=== PATIENT | male | born 1985 | race Caucasian/White ===

== ENCOUNTER 2017-02-22 16:18 | Emergency (ER) | payer OTHER ==
[2017-02-22 16:39] VITALS: BP 132/88; PULSE 98; RESP 16; TEMP 98.9
--- NOTE | 2017-02-22 17:10 | ED ---
Alcohol HPI - General Chief Complaint: Alcohol Stated Complaint: Alcohol Time Seen by Provider: 02/22/17 16:45 Source: patient, RN notes reviewed, old records reviewed Mode of arrival: ambulatory Limitations: no limitations - History of Present Illness Initial Comments: Patient is a pleasant 31-year-old male with chief complaint of alcohol use disorder and states that he wants to be admitted. Patient states that he drinks approximately a pint a day for the past 4 years. He states he's had multiple attempts to quit however he can never get through the withdrawal symptoms. Patient states that he tried to quit a few weeks ago and started having shakes nausea and then he started drinking again. Patient states he has had 2 seizures in the past after trying to go through withdrawals. Patient denies any fever or chills, nausea or vomiting. He states he has a history of anxiety which causes him to drink. He states he does not take any medications to help with anxiety.Patient denies any recent fever, chills, shortness of breath, chest pain, back pain, abdominal pain, nausea vomiting, numbness or tingling, dysuria or hematuria, constipation or diarrhea, headaches or visual changes, or any other current symptoms - Related Data Previous Rx's Medication Instructions Recorded LORazepam [Ativan] 1 mg PO TID #15 tab 02/22/17 Ondansetron Odt [Zofran Odt] 4 mg PO Q8HR PRN #20 tab 02/22/17 Allergies Allergy/AdvReac Type Severity Reaction Status Date / Time No Known Allergies Allergy Verified 02/22/17 16:46 Review of Systems ROS Statement: Those systems with pertinent positive or pertinent negative responses have been documented in the HPI. ROS Other: All systems not noted in ROS Statement are negative. Past Medical History Past Medical History: Hypertension History of Any Multi-Drug Resistant Organisms: None Reported Past Surgical History: Orthopedic Surgery Additional Past Surgical History / Comment(s): RIGHT ANKLE Past Psychological History: Anxiety Smoking Status: Former smoker Past Alcohol Use History: Daily, Heavy General Exam - General Exam Comments Initial Comments: [place] 31-year-old male. Patient does not appear to be in any acute distress. Limitations: no limitations General appearance: alert Head exam: Present: atraumatic, normocephalic, normal inspection Eye exam: Present: normal appearance, PERRL, EOMI. Absent: scleral icterus, conjunctival injection, periorbital swelling ENT exam: Present: normal exam, normal oropharynx, mucous membranes moist, TM's normal bilaterally Neck exam: Present: normal inspection. Absent: tenderness, meningismus, lymphadenopathy Respiratory exam: Present: normal lung sounds bilaterally. Absent: respiratory distress, wheezes, rales, rhonchi, stridor Cardiovascular Exam: Present: regular rate, normal rhythm, normal heart sounds. Absent: systolic murmur, diastolic murmur, rubs, gallop, clicks GI/Abdominal exam: Present: soft, normal bowel sounds. Absent: distended, tenderness, guarding, rebound, rigid Extremities exam: Present: normal inspection, full ROM, normal capillary refill. Absent: tenderness, pedal edema, joint swelling, calf tenderness Back exam: Present: normal inspection Neurological exam: Present: alert, oriented X3, CN II-XII intact Psychiatric exam: Present: normal affect, normal mood Skin exam: Present: warm, dry, intact, normal color. Absent: rash Course Vital Signs 02/22/17 16:34 Temperature 98.9 F Pulse Rate 98 Respiratory 16 Rate Blood Pressure 132/88 O2 Sat by Pulse 96 Oximetry Medical Decision Making - Medical Decision Making This is a pleasant 31-year-old male with chief complaint of wanting to go through alcohol detox and Hospital. I do lengthy discussion with him that we do not admit for this. I discussed that I will provide medications for nausea and withdrawal. Discussed that he should follow up with outpatient care including [facility] as well as multiple resources for substance abuse. Patient agrees with treatment plan will comply. Discussed return parameters including seizures. Discussed that he needs to follow-up with his primary care provider regards to chronic anxiety medication. Patient in question using Celexa. Discussed that this is something a primary care provider needs to signs. Patient agrees with treatment plan. Patient's blood alcohol level is 0.227. Patient is going home with his father. Discussed return parameters. Disposition Clinical Impression: Alcohol abuse Disposition: HOME SELF-CARE Condition: Good Instructions: Alcohol Withdrawal (ED) Additional Instructions: Patient advised to follow-up with outpatient treatment such as AA, [facility] , and other psychiatric services. Return to emergency department if any alarming signs or symptoms occur. Patient needs to take a vacation as directed. Again follow-up with primary care provider within the next 2-3 days for management of anxiety. Prescriptions: LORazepam [Ativan] 1 mg PO TID #15 tab Ondansetron Odt [Zofran Odt] 4 mg PO Q8HR PRN #20 tab PRN Reason: Nausea Referrals: None,Stated [Primary Care Provider] - 1-2 days Janet Sandoval MD [STAFF PHYSICIAN] - 1-2 days Time of Disposition: 17:04
== END 2017-02-22 17:21 | disposition home or self-care (01) ==
LOC: EC 16:18
DX: F10.10 Alcohol abuse, uncomplicated (principal); Z87.891 Personal history of nicotine dependence
CPT/HCPCS: 82075; 99284

== ENCOUNTER 2020-05-04 22:29 | Emergency (ER) | payer OTHER ==
[2020-05-04 22:43] VITALS: RESP 18
[2020-05-04] MEDS ORDERED: ONDANSETRON 4 MG/2 ML VIAL IVP STA (22:57)
[2020-05-04] MEDS ORDERED: SODIUM CHLORIDE 0.9% 1,000 ML IV STA (22:57)
[2020-05-04] MEDS ORDERED: MORPHINE SULFATE 2 MG/ML SYRINGE IVP STA (22:57)
[2020-05-04 23:29] LABS: Basophils % (A) 1 %; Eosinophils # (A) 0.2 k/uL (0-0.7); Eosinophils % (A) 4 %; HGB 17.4 gm/dL (13.0-17.5); Lymphocytes # (A) 2.7 k/uL (1.0-4.8); Lymphocytes % (A) 54 %; MCH 33.1 pg (25.0-35.0); MCHC 34.1 g/dL (31.0-37.0); MCV 97.3 fL (80.0-100.0); Mean Platelet Volume 8.3; Monocytes # (A) 0.3 k/uL (0-1.0); Monocytes % (A) 5 %; Neutrophils # (A) 1.7 k/uL (1.3-7.7); Neutrophils % (A) 35 %; Platelet Count 167 k/uL (150-450); RBC 5.24 m/uL (4.30-5.90); RDW 13.1 % (11.5-15.5)
--- NOTE | 2020-05-04 23:33 | XR ---
EXAMINATION TYPE: XR KUB DATE OF EXAM: 05/04/2020 COMPARISON: NONE HISTORY: Abdominal pain TECHNIQUE: 2 views FINDINGS: 2 views upright show no sign of intestinal obstruction or pneumoperitoneum. Fecal pattern i s normal. Lung bases are clear. There are no pathologic calcifications over the kidneys. Bony structu res are intact. IMPRESSION: Nonacute abdomen.
[2020-05-04 23:40] LABS: INR 1.1 (<1.2); Partial Thromboplastin Time 25.3 sec (22.0-30.0); Prothrombin Time 11.4 sec (9.0-12.0)
[2020-05-04 23:44] LABS: ALT 66 U/L (4-49); AST 137 U/L (17-59); African American GFR (CKD) >90 (>60 ml/min/1.73 sqM); Albumin 4.7 g/dL (3.5-5.0); Alkaline Phosphatase 108 U/L (38-126); Amylase 37 U/L (30-110); Anion Gap 16 mmol/L; Blood Urea Nitrogen 7 mg/dL (9-20); Calcium 9.4 mg/dL (8.4-10.2); Carbon Dioxide 26 mmol/L (22-30); Chloride 97 mmol/L (98-107); Glucose 96 mg/dL (74-99); Non-African American GFR(CKD) >90 (>60 ml/min/1.73 sqM); Potassium 3.5 mmol/L (3.5-5.1); Sodium 139 mmol/L (137-145); Total Bilirubin 0.7 mg/dL (0.2-1.3); Total Protein 7.5 g/dL (6.3-8.2)
[2020-05-04 23:51] LABS: Alcohol 271 mg/dL
--- NOTE | 2020-05-05 00:31 | ED ---
Abdominal Pain HPI - General Chief Complaint: Abdominal Pain Stated Complaint: Abd Pain Time Seen by Provider: 05/04/20 22:51 Source: patient Mode of arrival: ambulatory Limitations: no limitations - History of Present Illness Initial Comments: 34-year-old male patient has medical history significant for chronic alcohol abuse presents to the emergency department today for evaluation of generalized abdominal pain and cramping. Patient states that pain started yesterday, seemed to worsen today so presented here for further evaluation. Patient states that he generally is evaluated at [facility] and [facility] and states he has been diagnosed with colitis in the past. He is supposed to follow up with GI specialist but has not yet been able to do so. Denies history of EGD or colonoscopy. Denies taking any medications currently. Does admit to drinking alcohol today. Denies any nausea or vomiting. Denies constipation or diarrhea. Denies any hematochezia or melena. Patient denies any recent rash, fever, chills, cough, shortness of breath, chest pain, back pain, numbness, tingling, dizziness, weakness, hematuria, dysuria, urinary urgency, urinary frequency, headache, visual changes, or any other complaints. - Related Data Previous Rx's Medication Instructions Recorded LORazepam [Ativan] 1 mg PO TID #15 tab 02/22/17 Ondansetron Odt [Zofran Odt] 4 mg PO Q8HR PRN #20 tab 02/22/17 Dicyclomine [Bentyl] 20 mg PO QID #12 tablet 05/05/20 Famotidine [Pepcid] 20 mg PO HS #30 tablet 05/05/20 Allergies Allergy/AdvReac Type Severity Reaction Status Date / Time No Known Allergies Allergy Verified 02/22/17 16:46 Review of Systems ROS Statement: Those systems with pertinent positive or pertinent negative responses have been documented in the HPI. ROS Other: All systems not noted in ROS Statement are negative. Past Medical History Past Medical History: Hypertension Additional Past Medical History / Comment(s): collitis History of Any Multi-Drug Resistant Organisms: None Reported Past Surgical History: Orthopedic Surgery Additional Past Surgical History / Comment(s): RIGHT ANKLE Past Psychological History: Anxiety Past Alcohol Use History: Daily, Heavy General Exam Limitations: no limitations General appearance: alert, in no apparent distress, other (This is a well- developed, well-nourished adult male patient in no acute distress. Vital signs upon presentation are temperature 97.8F, pulse 110, respirations 18, blood pressure 135/101, pulse ox 98% on room air.) Eye exam: Present: normal appearance, PERRL, EOMI. Absent: scleral icterus, conjunctival injection, periorbital swelling ENT exam: Present: normal exam, normal oropharynx, mucous membranes moist Respiratory exam: Present: normal lung sounds bilaterally. Absent: respiratory distress, wheezes, rales, rhonchi, stridor Cardiovascular Exam: Present: regular rate, normal rhythm, normal heart sounds. Absent: systolic murmur, diastolic murmur, rubs, gallop, clicks GI/Abdominal exam: Present: soft, tenderness (Generalized), normal bowel sounds. Absent: distended, guarding, rebound, rigid Neurological exam: Present: alert, oriented X3, CN II-XII intact Psychiatric exam: Present: normal affect, normal mood Skin exam: Present: warm, dry, intact, normal color. Absent: rash Course Vital Signs 05/04/20 22:38 Temperature 97.8 F Pulse Rate 110 H Respiratory 18 Rate Blood Pressure 135/101 O2 Sat by Pulse 98 Oximetry Medical Decision Making - Medical Decision Making 34-year-old male patient presents to the emergency department today for evaluation of generalized abdominal pain. Patient does admit to drinking alcohol daily. Physical examination did reveal generalized abdominal tenderness. Labs reviewed and did reveal mildly elevated liver enzymes. Normal white blood cell count. KUB was negative. Patient alcohol level is 274. He was given medications here in the emergency department. Does report mild improvement. He'll be discharged from this primary care physician and did check bolt cutter for further evaluation as soon as possible. Return parameters discussed in detail. He verbalizes understanding and agrees with this plan. - Lab Data Result diagrams: 05/04/20 22:57 05/04/20 22:57 Lab Results 05/04/20 05/04/20 05/04/20 Range/Units 22:57 22:57 22:57 WBC 5.0 (3.8-10.6) k/uL RBC 5.24 (4.30-5.90) m/uL Hgb 17.4 (13.0-17.5) gm/dL Hct 51.0 (39.0-53.0) % MCV 97.3 (80.0-100.0) fL MCH 33.1 (25.0-35.0) pg MCHC 34.1 (31.0-37.0) g/dL RDW 13.1 (11.5-15.5) % Plt Count 167 (150-450) k/uL Neutrophils % 35 % Lymphocytes % 54 % Monocytes % 5 % Eosinophils % 4 % Basophils % 1 % Neutrophils # 1.7 (1.3-7.7) k/uL Lymphocytes # 2.7 (1.0-4.8) k/uL Monocytes # 0.3 (0-1.0) k/uL Eosinophils # 0.2 (0-0.7) k/uL Basophils # 0.0 (0-0.2) k/uL PT 11.4 (9.0-12.0) sec INR 1.1 (<1.2) APTT 25.3 (22.0-30.0) sec Sodium 139 (137-145) mmol/L Potassium 3.5 (3.5-5.1) mmol/L Chloride 97 L (98-107) mmol/L Carbon Dioxide 26 (22-30) mmol/L Anion Gap 16 mmol/L BUN 7 L (9-20) mg/dL Creatinine 0.67 (0.66-1.25) mg/dL Est GFR (CKD-EPI)AfAm >90 (>60 ml/min/1.73 sqM) Est GFR (CKD-EPI)NonAf >90 (>60 ml/min/1.73 sqM) Glucose 96 (74-99) mg/dL Lactic Ac Sepsis Rflx Plasma Lactic Acid Larry (0.7-2.0) mmol/L Calcium 9.4 (8.4-10.2) mg/dL Total Bilirubin 0.7 (0.2-1.3) mg/dL AST 137 H (17-59) U/L ALT 66 H (4-49) U/L Alkaline Phosphatase 108 (38-126) U/L Total Protein 7.5 (6.3-8.2) g/dL Albumin 4.7 (3.5-5.0) g/dL Amylase 37 (30-110) U/L Lipase 109 (23-300) U/L Urine Color Urine Appearance (Clear) Urine pH (5.0-8.0) Ur Specific [place] (1.001-1.035) Urine Protein (Negative) Urine Glucose (UA) (Negative) Urine Ketones (Negative) Urine Blood (Negative) Urine Nitrite (Negative) Urine Bilirubin (Negative) Urine Urobilinogen (<2.0) mg/dL Ur Leukocyte Esterase (Negative) Urine RBC (0-5) /hpf Urine WBC (0-5) /hpf Ur Squamous Epith Cells (0-4) /hpf Amorphous Sediment (None) /hpf Urine Bacteria (None) /hpf Hyaline Casts (0-2) /lpf Urine Mucus (None) /hpf Serum Alcohol 271 H* mg/dL 05/04/20 05/04/20 05/05/20 Range/Units 22:57 23:54 00:59 WBC (3.8-10.6) k/uL RBC (4.30-5.90) m/uL Hgb (13.0-17.5) gm/dL Hct (39.0-53.0) % MCV (80.0-100.0) fL MCH (25.0-35.0) pg MCHC (31.0-37.0) g/dL RDW (11.5-15.5) % Plt Count (150-450) k/uL Neutrophils % % Lymphocytes % % Monocytes % % Eosinophils % % Basophils % % Neutrophils # (1.3-7.7) k/uL Lymphocytes # (1.0-4.8) k/uL Monocytes # (0-1.0) k/uL Eosinophils # (0-0.7) k/uL Basophils # (0-0.2) k/uL PT (9.0-12.0) sec INR (<1.2) APTT (22.0-30.0) sec Sodium (137-145) mmol/L Potassium (3.5-5.1) mmol/L Chloride (98-107) mmol/L Carbon Dioxide (22-30) mmol/L Anion Gap mmol/L BUN (9-20) mg/dL Creatinine (0.66-1.25) mg/dL Est GFR (CKD-EPI)AfAm (>60 ml/min/1.73 sqM) Est GFR (CKD-EPI)NonAf (>60 ml/min/1.73 sqM) Glucose (74-99) mg/dL Lactic Ac Sepsis Rflx Y Plasma Lactic Acid Larry 2.8 H* (0.7-2.0) mmol/L Calcium (8.4-10.2) mg/dL Total Bilirubin (0.2-1.3) mg/dL AST (17-59) U/L ALT (4-49) U/L Alkaline Phosphatase (38-126) U/L Total Protein (6.3-8.2) g/dL Albumin (3.5-5.0) g/dL Amylase (30-110) U/L Lipase (23-300) U/L Urine Color Yellow Urine Appearance Cloudy (Clear) Urine pH 8.0 (5.0-8.0) Ur Specific [place] 1.015 (1.001-1.035) Urine Protein Negative (Negative) Urine Glucose (UA) Negative (Negative) Urine Ketones Trace H (Negative) Urine Blood Negative (Negative) Urine Nitrite Negative (Negative) Urine Bilirubin Negative (Negative) Urine Urobilinogen 2.0 (<2.0) mg/dL Ur Leukocyte Esterase Negative (Negative) Urine RBC 1 (0-5) /hpf Urine WBC 2 (0-5) /hpf Ur Squamous Epith Cells <1 (0-4) /hpf Amorphous Sediment Rare H (None) /hpf Urine Bacteria Rare H (None) /hpf Hyaline Casts 1 (0-2) /lpf Urine Mucus Few H (None) /hpf Serum Alcohol mg/dL - Radiology Data Radiology results: report reviewed, image reviewed KUB x-ray was obtained. Report was reviewed in its entirety. Impression by Dr. Rincon shows nonacute abdomen. Disposition Clinical Impression: Alcohol intoxication, Abdominal pain Disposition: HOME SELF-CARE Condition: Good Instructions (If sedation given, give patient instructions): Alcohol Intoxication (ED), Abdominal Pain (ED) Additional Instructions: Increase fluids. Take medications as directed. Follow-up with GI specialist for further evaluation as soon as possible. Return to the emergency department immediately for any new, worsening, or concerning symptoms. Prescriptions: Dicyclomine [Bentyl] 20 mg PO QID #12 tablet Famotidine [Pepcid] 20 mg PO HS #30 tablet Is patient prescribed a controlled substance at d/c from ED?: No Referrals: Luis Mcgee MD [Primary Care Provider] - 1-2 days Time of Disposition: 01:59
[2020-05-05 01:18] LABS: Amorphous Sediment,Urine Rare /hpf; Appearance,Urine Cloudy (Clear); Bacteria,Urine Rare /hpf; Bilirubin,Urine Negative (Negative); Blood,Urine Negative (Negative); Color,Urine Yellow; Glucose,Urine (UA) Negative (Negative); Hyaline Casts,Urine 1 /lpf (0-2); Ketones,Urine Trace (Negative); Leukocyte Esterase,Urine Negative (Negative); Mucus,Urine Few /hpf; Nitrite,Urine Negative (Negative); Protein,Urine Negative (Negative); RBC,Urine 1 /hpf (0-5); Specific Gravity,Urine 1.015 (1.001-1.035); Squamous Epithelial Cell,Urine <1 /hpf (0-4); WBC,Urine 2 /hpf (0-5)
[2020-05-05] MEDS ORDERED: DICYCLOMINE 10 MG/ML 2 ML AMP IM STA (01:57)
[2020-05-05] MEDS ORDERED: FAMOTIDINE 20 MG/2 ML VIAL IV STA (01:57)
[2020-05-05 02:35] VITALS: BP 135/84; PULSE 109; TEMP 98.3
== END 2020-05-05 04:50 | disposition home or self-care (01) ==
LOC: EC 22:29
DX: F10.129 Alcohol abuse with intoxication, unspecified (principal); R10.84 Generalized abdominal pain; R94.5 Abnormal results of liver function studies
CPT/HCPCS: 36415; 80053; 82150; 83605; 83690; 85025; 85610; 85730; 81001; 74018; 99284; 96374; 96375 ×2; 96361 ×2; 96372; G0480; J0500; J2405; J2270; 80320

== ENCOUNTER 2020-05-16 22:19 | Observation (INO) | payer OTHER ==
[2020-05-16] MEDS ORDERED: LORazepam 2 MG/ML INJ IV STA (22:36)
[2020-05-16] MEDS ORDERED: ONDANSETRON 4 MG/2 ML VIAL IVP STA (22:44)
--- NOTE | 2020-05-16 22:44 | ED ---
General Adult HPI - General Chief complaint: Alcohol Stated complaint: detox Time Seen by Provider: 05/16/20 22:27 Source: patient, EMS, RN notes reviewed, old records reviewed (Chart reviewed from [facility]) Mode of arrival: EMS Limitations: no limitations - History of Present Illness Initial comments: Patient is a pleasant 34-year-old male presenting to the emergency department with transfer from [facility] with concern for alcohol withdrawal. Patient has been vomiting for the past 3 days, last alcohol intake was this m orning. Patient was seen at [facility] and recommended transfer secondary to alcohol withdrawal. There is also concerned with dehydration and electrolyte abnormalities. Patient states he is feeling much better at this time. Patient has mild nausea. No abdominal discomfort. Patient does feel shaky. No confusion. - Related Data Previous Rx's Medication Instructions Recorded LORazepam [Ativan] 1 mg PO TID #15 tab 02/22/17 Ondansetron Odt [Zofran Odt] 4 mg PO Q8HR PRN #20 tab 02/22/17 Dicyclomine [Bentyl] 20 mg PO QID #12 tablet 05/05/20 Famotidine [Pepcid] 20 mg PO HS #30 tablet 05/05/20 Allergies Allergy/AdvReac Type Severity Reaction Status Date / Time No Known Allergies Allergy Verified 05/16/20 22:37 Review of Systems ROS Statement: Those systems with pertinent positive or pertinent negative responses have been documented in the HPI. ROS Other: All systems not noted in ROS Statement are negative. Constitutional: Denies: fever Eyes: Denies: eye pain ENT: Denies: ear pain Respiratory: Denies: cough Cardiovascular: Denies: chest pain Endocrine: Denies: fatigue Gastrointestinal: Reports: nausea, vomiting. Denies: abdominal pain (Patient had some discomfort earlier, resolved) Musculoskeletal: Denies: back pain Skin: Denies: rash Neurological: Denies: weakness, confusion Past Medical History Past Medical History: Hypertension Additional Past Medical History / Comment(s): collitis History of Any Multi-Drug Resistant Organisms: None Reported Past Surgical History: Orthopedic Surgery Additional Past Surgical History / Comment(s): RIGHT ANKLE Past Psychological History: Anxiety Past Alcohol Use History: Daily, Heavy General Exam Limitations: no limitations General appearance: alert, in no apparent distress, other (Occasional resting tremor) Head exam: Present: normocephalic Eye exam: Present: normal appearance, PERRL ENT exam: Present: normal oropharynx Neck exam: Present: normal inspection. Absent: tenderness, meningismus Respiratory exam: Present: normal lung sounds bilaterally Cardiovascular Exam: Present: regular rate, normal rhythm GI/Abdominal exam: Present: soft. Absent: tenderness Extremities exam: Present: normal inspection Neurological exam: Present: alert, oriented X3, CN II-XII intact. Absent: motor sensory deficit Psychiatric exam: Present: normal affect, normal mood Skin exam: Present: normal color Course Vital Signs 05/16/20 22:27 Temperature 98.7 F Pulse Rate 104 H Respiratory 20 Rate Blood Pressure 139/87 O2 Sat by Pulse 97 Oximetry Medical Decision Making - Medical Decision Making Patient aware of plan. Case discussed with Dr. Matute, covering for Dr. Marcelino, who admits for Dr. Mcgee who will admit. Lab abnormalities are felt to be due to dehydration. There is no source of infection. Patient does not have fever. Disposition Clinical Impression: Alcohol withdrawal syndrome, Dehydration Disposition: ADMITTED IP TO THIS HOSP Is patient prescribed a controlled substance at d/c from ED?: No Decision Time: 22:44
[2020-05-16] MEDS ORDERED: LORazepam 2 MG/ML INJ IV PRN ×2 (22:45)
[2020-05-16] MEDS ORDERED: NALOXONE 0.4 MG/ML 1 ML VIAL IV PRN (22:45)
[2020-05-16] MEDS ORDERED: ONDANSETRON 4 MG/2 ML VIAL IVP PRN (22:45)
[2020-05-17 00:43] LABS: Amorphous Sediment,Urine Rare /hpf; Appearance,Urine Turbid (Clear); Bilirubin,Urine Negative (Negative); Blood,Urine Negative (Negative); Color,Urine Yellow; Glucose,Urine (UA) Negative (Negative); Ketones,Urine 2+ (Negative); Leukocyte Esterase,Urine Negative (Negative); Nitrite,Urine Negative (Negative); Protein,Urine Negative (Negative); Urobilinogen,Urine <2.0 mg/dL (<2.0)
[2020-05-17] MEDS: SODIUM CHLORIDE 0.9% 1,000 ML IV SCH ×2 (00:45→08:06)
[2020-05-17] MEDS: LORazepam 2 MG/ML INJ IV PRN ×3 (00:45→08:20)
[2020-05-17 00:54] LABS: Specific Gravity,Urine 1.047 (1.001-1.035)
[2020-05-17 05:59] LABS: Basophils % (A) 1 %; Eosinophils % (A) 1 %; HCT 43.1 % (39.0-53.0); HGB 13.9 gm/dL (13.0-17.5); Lymphocytes % (A) 16 %; MCHC 32.2 g/dL (31.0-37.0); MCV 96.3 fL (80.0-100.0); Monocytes # (A) 0.5 k/uL (0-1.0); Monocytes % (A) 8 %; Neutrophils # (A) 4.4 k/uL (1.3-7.7); Neutrophils % (A) 74 %; Platelet Count 184 k/uL (150-450); RBC 4.48 m/uL (4.30-5.90); RDW 13.2 % (11.5-15.5)
[2020-05-17 06:15] LABS: ALT 50 U/L (4-49); AST 81 U/L (17-59); African American GFR (CKD) >90 (>60 ml/min/1.73 sqM); Albumin 3.6 g/dL (3.5-5.0); Alkaline Phosphatase 72 U/L (38-126); Anion Gap 9 mmol/L; Blood Urea Nitrogen 7 mg/dL (9-20); Calcium 8.5 mg/dL (8.4-10.2); Carbon Dioxide 27 mmol/L (22-30); Chloride 98 mmol/L (98-107); Glucose 96 mg/dL (74-99); Magnesium 1.6 mg/dL (1.6-2.3); Non-African American GFR(CKD) >90 (>60 ml/min/1.73 sqM); Potassium 3.6 mmol/L (3.5-5.1); Sodium 134 mmol/L (137-145)
[2020-05-17] MEDS: THIAMINE 100 MG TAB PO SCH ×2 (08:06→16:30)
[2020-05-17] MEDS: MULTIVITAMINS, THERA 1 EACH TAB PO SCH (08:06)
[2020-05-17] MEDS ORDERED: PANTOPRAZOLE 40 MG/10 ML VIAL IV SCH (09:00)
[2020-05-17] MEDS: diazePAM 5 MG TAB PO SCH ×3 (13:42→21:08)
[2020-05-17] MEDS: VENLAFAXINE HCL ER 150 MG CAP PO SCH (13:43)
[2020-05-17] MEDS: DEXTROSE 5%-0.9% NACL 1,000 ML IV SCH ×2 (13:43→21:08)
[2020-05-17] MEDS: PANTOPRAZOLE 40 MG TABLET PO SCH (16:29)
[2020-05-17] MEDS ORDERED: NON FORMULARY DRUG (Brivaracetam [Briviact] 50 MG) PO SCH (21:00)
--- NOTE | 2020-05-17 22:57 | P.HPIM ---
History of Present Illness H&P Date: 05/17/20 Chief Complaint: Vomiting History of presenting complaint: This is a 34-year-old patient, follows with Dr. Luis Mcgee. Patient has a history of alcoholism. In September 2019 patient has undergone rehab. Patient relapsed about 3 weeks ago. Started drinking whiskey again. A lot of pint a day. For 3-4 days patient has been vomiting quite a bit. Some abdominal discom fort. No fever or chills. Last bowel movement was 3-4 days ago. Patient states in the past he's had a vivi stroke, seizures, depression. Last 3 foot is not taking any medications. Last seizure medication was 7 days ago. Patient's last drink was yesterday. Still having nausea. Patient is pending a GI appointment for a possible Crohn's disease. Feeling weak and tired and rundown Review of systems: GEN.: Tired EYES: None HEENT: None NECK: None RESPIRATORY: None CARDIOVASCULAR: None GASTROINTESTINAL: As above GENITOURINARY: None MUSCULOSKELETAL: None LYMPHATICS: None HEMATOLOGICAL: None PSYCHIATRY: Anxious NEUROLOGICAL: None Past medical history to include: Questionable hypertension, anxiety, alcohol use disorder Social history: Did smoke in the past. Drinking a pint a day. Currently not employed. Lives with his father Family history: Reviewed, noncontributory to presentation Physical examination: VITAL SIGNS: 98.5, 90, 16, 147/100, 97% on room air GENERAL: BMI 28.2, laying in bed, tired, spider nevi: Pupils equal. Conjunctiva normal. HEENT: External appearance of nose and ears normal, oral cavity dry mucous membranes. NECK: [JVD not raised; masses not palpable]. HEART: [First and second heart sounds are normal; no edema]. LUNGS:[ Respiratory rate normal; clear to auscultation]. ABDOMEN: [Soft, mild tenderness, no guarding rigidity, liver spleen not palpab le, no masses palpable]. PSYCH: [Alert and oriented x3; mood and affect anxious l. NEUROLOGICAL: [Cranial nerves grossly intact; no facial asymmetry, power and sensation grossly h nodes palpable in the axilla and neck] INVESTIGATIONS, reviewed in the clinical context: White count 6 hemoglobin 13.9 potassium 3.6 bun 7 creatinine 0.55 AST 81 PLT 50 UA positive for ketones 2+ COVID 19 PCF-not detected Assessment: -Persistent nausea vomiting in a patient has been drinking excessive alcohol likely from severe gastritis and esophagitis -Clinical dehydration -Alcohol use disorder -Highly alcohol withdrawal syndrome -Starvation ketosis -Alcoholic hepatitis Plan: Patient started IV fluids including D5. Also given thiamine. On the CIWA scale. Also prophylactically started on Valium 2.5 mg every 8 hours. Lovenox for DVT prophylaxis. Care is discussed with the patient. Antiemetics. Also PPI. Also resume patient's seizure medications. Past Medical History Past Medical History: Hypertension Additional Past Medical History / Comment(s): collitis History of Any Multi-Drug Resistant Organisms: None Reported Past Surgical History: Orthopedic Surgery Additional Past Surgical History / Comment(s): RIGHT ANKLE Past Anesthesia/Blood Transfusion Reactions: No Reported Reaction Past Psychological History: Anxiety Smoking Status: Former smoker Past Alcohol Use History: Daily, Heavy Additional Past Alcohol Use History / Comment(s): drinks a pint/day Past Drug Use History: None Reported - Past Family History Father History Unknown: Yes Medications and Allergies Home Medications Medication Instructions Recorded Confirmed Type Antacid Devora Anti-Gas 10 ml PO Q6H PRN 05/17/20 05/17/20 History Brivaracetam [Briviact] 50 mg PO HS 05/17/20 05/17/20 History Folic Acid 1 mg PO DAILY 05/17/20 05/17/20 History Multivitamins, Thera [Multivitamin 1 tab PO DAILY 05/17/20 05/17/20 History (formulary)] Pantoprazole Sodium [Protonix] 40 mg PO Q12H 05/17/20 05/17/20 History Potassium Chloride ER [K-Dur 10] 10 meq PO AC-TID 05/17/20 05/17/20 History Venlafaxine HCl [Effexor XR] 150 mg PO DAILY 05/17/20 05/17/20 History hydrOXYzine HCL [Atarax] 25 mg PO TID PRN 05/17/20 05/17/20 History Allergies Allergy/AdvReac Type Severity Reaction Status Date / Time No Known Allergies Allergy Verified 05/17/20 07:45 Physical Exam Vitals: Vital Signs Temp Pulse Resp BP Pulse Ox 05/17/20 05:56 98.5 F 90 16 147/100 97 05/17/20 04:50 89 18 143/97 96 05/17/20 04:22 111 H 18 152/111 97 05/17/20 02:05 98.8 F 98 16 146/91 96 05/17/20 00:20 108 H 18 144/98 96 05/16/20 22:27 98.7 F 104 H 20 139/87 97 Intake and Output 05/16/20 05/17/20 05/17/20 22:59 06:59 14:59 Output Total 200 Balance -200 Output: Urine 200 Other: Weight 81.647 kg 81.647 kg Results CBC & Chem 7: 05/17/20 05:26 05/17/20 05:26 Labs: Abnormal Lab Results - Last 24 Hours (Table) 05/17/20 05/17/20 Range/Units 00:21 05:26 Sodium 134 L (137-145) mmol/L BUN 7 L (9-20) mg/dL Creatinine 0.55 L (0.66-1.25) mg/dL AST 81 H (17-59) U/L ALT 50 H (4-49) U/L Total Protein 6.0 L (6.3-8.2) g/dL Ur Specific [place] 1.047 H (1.001-1.035) Urine Ketones 2+ H (Negative) Amorphous Sediment Rare H (None) /hpf Thrombosis Risk Factor Assmnt - Choose All That Apply Any of the Below Risk Factors Present?: No Other Risk Factors: No Other congenital or acquired thrombophilia - If yes, enter type in comment: No Thrombosis Risk Factor Assessment Level: Very Low Risk
[2020-05-18] MEDS: DEXTROSE 5%-0.9% NACL 1,000 ML IV SCH ×2 (02:02→08:27)
[2020-05-18] MEDS: LORazepam 2 MG/ML INJ IV PRN (05:04)
[2020-05-18] MEDS: MULTIVITAMINS, THERA 1 EACH TAB PO SCH (08:27)
[2020-05-18] MEDS: diazePAM 5 MG TAB PO SCH (08:27)
[2020-05-18] MEDS: PANTOPRAZOLE 40 MG TABLET PO SCH (08:27)
[2020-05-18] MEDS: VENLAFAXINE HCL ER 150 MG CAP PO SCH (08:27)
[2020-05-18] MEDS: THIAMINE 100 MG TAB PO SCH (08:27)
[2020-05-18 08:48] VITALS: BP 130/83; PULSE 69; RESP 18; TEMP 98.2
--- NOTE | 2020-05-19 00:39 | P.DS ---
Providers Date of admission: 05/16/20 22:45 Expected date of discharge: 05/18/20 Attending physician: Jarret Marcelino Primary care physician: Luis Mcgee MD Hospital Course: Chief Complaint: Vomiting History of presenting complaint: This is a 34-year-old patient, follows with Dr. Luis Mcgee. Patient has a history of alcoholism. In September 2019 patient has undergone rehab. Patient relapsed about 3 weeks ago. Started drinking whiskey again. A lot of pint a day. For 3-4 days patient has been vomiting quite a bit. Some abdominal discomfort. No fever or chills. Last bowel movement was 3-4 days ago. Patient states in the past he's had a vivi stroke, seizures, depression. Last 3 foot is not taking any medications. Last seizure medication was 7 days ago. Patient's last drink was yesterday. Still having nausea. Patient is pending a GI appointment for a possible Crohn's disease. Feeling weak and tired and rundown admitted with alcoholic gastritis esophagitis, probably alcohol withdrawal syndrome, starvation ketosis. Treated with IV fluids, antiemetics, ppi Today-patient did tolerate. Clear liquids in the morning. I wonder the patient Douglas diet patient very adamantly insisted on going home. Explained at length to him. Consult. Told him to take full liquids and advance as tolerated. Counseled about alcohol. Discussion discharge planning within 35 minutes Physical examination: VITAL SIGNS: 98.2, 69, 18, 130/83, 96% room air GENERAL: sitting of the bed, looking much better HEENT: External appearance of nose and ears normal, oral cavity dry mucous membranes. NECK: [JVD not raised; masses not palpable]. HEART: [First and second heart sounds are normal; no edema]. LUNGS:[ Respiratory rate normal; clear to auscultation]. ABDOMEN: [Soft, mild tenderness, no guarding rigidity, liver spleen not palpable, no masses palpable]. PSYCH: [Alert and oriented x3; mood and affect anxious l. INVESTIGATIONS, reviewed in the clinical context: White count 6 hemoglobin 13.9 potassium 3.6 bun 7 creatinine 0.55 AST 81 PLT 50 UA positive for ketones 2+ COVID 19 PCF-not detected Assessment: -Persistent nausea vomiting in a patient has been drinking excessive alcohol likely from severe gastritis and esophagitis -Clinical dehydration -Alcohol use disorder -Highly alcohol withdrawal syndrome -Starvation ketosis -Alcoholic hepatitis disposition: Home Patient Condition at Discharge: Stable Plan - Discharge Summary New Discharge Prescriptions: Continue Multivitamins, Thera [Multivitamin (formulary)] 1 tab PO DAILY Potassium Chloride ER [K-Dur 10] 10 meq PO AC-TID Pantoprazole Sodium [Protonix] 40 mg PO Q12H Folic Acid 1 mg PO DAILY Brivaracetam [Briviact] 50 mg PO HS Venlafaxine HCl [Effexor XR] 150 mg PO DAILY Antacid Devora Anti-Gas 10 ml PO Q6H PRN PRN Reason: GAS PAIN Discontinued hydrOXYzine HCL [Atarax] 25 mg PO TID PRN PRN Reason: Anxiety Discharge Medication List Antacid Devora Anti-Gas 10 ml PO Q6H PRN 05/17/20 [History] Brivaracetam [Briviact] 50 mg PO HS 05/17/20 [History] Folic Acid 1 mg PO DAILY 05/17/20 [History] Multivitamins, Thera [Multivitamin (formulary)] 1 tab PO DAILY 05/17/20 [History] Pantoprazole Sodium [Protonix] 40 mg PO Q12H 05/17/20 [History] Potassium Chloride ER [K-Dur 10] 10 meq PO AC-TID 05/17/20 [History] Venlafaxine HCl [Effexor XR] 150 mg PO DAILY 05/17/20 [History] Follow up Appointment(s)/Referral(s): Luis Mcgee MD [Primary Care Provider] - 1-2 days (please call office and schedule appointment ) Patient Instructions/Handouts: Abuse of Alcohol (DC), Alcohol Withdrawal (DC) Activity/Diet/Wound Care/Special Instructions: no alcohol full liquid diet- advance as tolerated Discharge Disposition: HOME SELF-CARE
== END 2020-05-18 13:44 | disposition home or self-care (01) ==
LOC: EC 22:19 → INTOOBSV 22:45 → 5NMEDONC 22:45 → 4SSUR 05-17 11:34 → UNDODISIN 05-18 13:44
PROVIDERS: ADMIT Hospitalist; ATTEND Hospitalist
DX: F10.239 Alcohol dependence with withdrawal, unspecified (principal); K20.8 Other esophagitis; K29.20 Alcoholic gastritis without bleeding; E86.0 Dehydration; E88.89 Other specified metabolic disorders; T73.0XXA Starvation, initial encounter; K70.10 Alcoholic hepatitis without ascites; I10 Essential (primary) hypertension; F41.9 Anxiety disorder, unspecified; R56.9 Unspecified convulsions; F32.9 Major depressive disorder, single episode, unspecified; T42.6X6A Underdosing of other antiepileptic and sedative-hypnotic drugs, initial encounter; Z71.41 Alcohol abuse counseling and surveillance of alcoholic; Z20.828 Contact with and (suspected) exposure to other viral communicable diseases; Z79.899 Other long term (current) drug therapy; Z98.890 Other specified postprocedural states; Z86.73 Personal history of transient ischemic attack (TIA), and cerebral infarction without residual deficits; Z87.891 Personal history of nicotine dependence; Z56.0 Unemployment, unspecified
CPT/HCPCS: 96376 ×2; 96361 ×3; 96374; 96375 ×2; 99285; 80053; 83735; 84100; 85025; 81001; G0378 ×4; U0003; J2060 ×3; J2405 ×2; C9113

== ENCOUNTER 2020-05-19 07:00 | Emergency (ER) | payer OTHER ==
[2020-05-19 07:10] VITALS: PULSE 86
[2020-05-19 08:00] LABS: Amphetamine Screen,Urine Not Detected (NotDetected); Barbiturate Screen,Urine Not Detected (NotDetected); Benzodiazepines Screen,Urine Detected (NotDetected); Cocaine Screen,Urine Not Detected (NotDetected); Methadone Screen, Urine Not Detected (NotDetected); Opiate Screen,Urine Not Detected (NotDetected); Oxycodone Screen, Urine Not Detected (NotDetected); Phencyclidine Screen,Urine Not Detected (NotDetected); Tricyclic Antidepressant,Urine Not Detected (NotDetected); Urn Cannabinoid Scrn Not Detected (NotDetected)
--- NOTE | 2020-05-19 08:41 | ED ---
General Adult HPI - General Source: patient, RN notes reviewed Mode of arrival: EMS <Javad Gibbs - Last Filed: 05/19/20 13:56> <Juan Antonio Livingston - Last Filed: 05/19/20 17:26> - General Chief complaint: Recheck/Abnormal Lab/Rx Stated complaint: ETOH, mental health Time Seen by Provider: 05/19/20 07:04 - History of Present Illness Initial comments: 34-year-old male with a past medical history of colitis, chronic alcoholism presents to the emergency department for a chief complaint of psychiatric evaluation. Patient was recently admitted a couple days ago for alcohol intoxication and withdraws. He was released yesterday where he went home and began drinking. His father became concerned about this and called 911 and had patient petition. Patient denies suicidal or homicidal thoughts. He does report that he does not care if he lives but would not harm himself. No plan for suicide.Patient has no other complaints at this time including shortness of breath, chest pain, abdominal pain, nausea or vomiting, headache, or visual changes. (Javad Gibbs) - Related Data Home Medications Medication Instructions Recorded Confirmed Antacid Devora Anti-Gas 10 ml PO Q6H PRN 05/17/20 05/19/20 Brivaracetam [Briviact] 50 mg PO HS 05/17/20 05/19/20 Folic Acid 1 mg PO DAILY 05/17/20 05/19/20 Multivitamins, Thera [Multivitamin 1 tab PO DAILY 05/17/20 05/19/20 (formulary)] Pantoprazole Sodium [Protonix] 40 mg PO Q12H 05/17/20 05/19/20 Potassium Chloride ER [K-Dur 10] 10 meq PO AC-TID 05/17/20 05/19/20 Venlafaxine HCl [Effexor XR] 150 mg PO DAILY 05/17/20 05/19/20 Allergies Allergy/AdvReac Type Severity Reaction Status Date / Time No Known Allergies Allergy Verified 05/19/20 09:06 Review of Systems ROS Other: All systems not noted in ROS Statement are negative. <Javad Gibbs - Last Filed: 05/19/20 13:56> ROS Other: All systems not noted in ROS Statement are negative. <Juan Antonio Livingston - Last Filed: 05/19/20 17:26> ROS Statement: Those systems with pertinent positive or pertinent negative responses have been documented in the HPI. Past Medical History Past Medical History: Hypertension Additional Past Medical History / Comment(s): collitis History of Any Multi-Drug Resistant Organisms: None Reported Past Surgical History: Orthopedic Surgery Additional Past Surgical History / Comment(s): RIGHT ANKLE Past Anesthesia/Blood Transfusion Reactions: No Reported Reaction Past Psychological History: Anxiety Smoking Status: Former smoker Past Alcohol Use History: Daily, Heavy Past Drug Use History: None Reported - Past Family History Father History Unknown: Yes <Javad Gibbs - Last Filed: 05/19/20 13:56> General Exam General appearance: alert, in no apparent distress Head exam: Present: atraumatic, normocephalic, normal inspection Eye exam: Present: normal appearance, PERRL, EOMI. Absent: scleral icterus, conjunctival injection, periorbital swelling ENT exam: Present: normal exam, mucous membranes moist Neck exam: Present: normal inspection. Absent: tenderness, meningismus, lymphadenopathy Respiratory exam: Present: normal lung sounds bilaterally. Absent: respiratory distress, wheezes, rales, rhonchi, stridor Cardiovascular Exam: Present: regular rate, normal rhythm, normal heart sounds. Absent: systolic murmur, diastolic murmur, rubs, gallop, clicks GI/Abdominal exam: Present: soft, normal bowel sounds. Absent: distended, tenderness, guarding, rebound, rigid <Javad Gibbs P - Last Filed: 05/19/20 13:56> Course Vital Signs 05/19/20 05/19/20 05/19/20 07:05 13:10 14:16 Temperature 97.9 F Pulse Rate 86 Respiratory 17 18 18 Rate Blood Pressure 131/91 O2 Sat by Pulse 97 Oximetry 05/19/20 17:00 Temperature 98.4 F Pulse Rate Respiratory 81 H Rate Blood Pressure 129/72 O2 Sat by Pulse 98 Oximetry Medical Decision Making <Javad Gibbs - Last Filed: 05/19/20 13:56> <Juan Antonio Livingston - Last Filed: 05/19/20 17:26> - Medical Decision Making Patient was petitioned by father because he is drinking alcohol and not caring for himself. Patient currently awaiting evaluation once sober. Care signed out to Dr Livingston at 1400. Patient currently resting comfortably. (Javad Gibbs) Patient was endorsed to me by ED SATURNINO Sauceda (secondary to end of her shift) with the EPS nurse evaluation pending. Patient was evaluated by EPS nurse and deemed appropriate for discharge home with his father. Patient was discharged home with his father. (Juan Antonio Livingston) - Lab Data Lab Results 05/19/20 Range/Units 07:35 Urine Opiates Screen Not Detected (NotDetected) Ur Oxycodone Screen Not Detected (NotDetected) Urine Methadone Screen Not Detected (NotDetected) Ur Propoxyphene Screen Not Detected (NotDetected) Ur Barbiturates Screen Not Detected (NotDetected) U Tricyclic Antidepress Not Detected (NotDetected) Ur Phencyclidine Scrn Not Detected (NotDetected) Ur Amphetamines Screen Not Detected (NotDetected) U Methamphetamines Scrn Not Detected (NotDetected) U Benzodiazepines Scrn Detected H (NotDetected) Urine Cocaine Screen Not Detected (NotDetected) U Marijuana (THC) Screen Not Detected (NotDetected) Disposition <Javad Gibbs - Last Filed: 05/19/20 13:56> Is patient prescribed a controlled substance at d/c from ED?: No Time of Disposition: 17:15 <Juan Antonio Livingston - Last Filed: 05/19/20 17:26> Clinical Impression: Alcohol abuse Disposition: HOME SELF-CARE Condition: Stable Instructions (If sedation given, give patient instructions): Suicide Prevention (ED) Referrals: Luis Mcgee MD [Primary Care Provider] - 1-2 days
[2020-05-19 17:02] VITALS: BP 129/72; RESP 81; TEMP 98.4
== END 2020-05-19 17:01 | disposition home or self-care (01) ==
LOC: EC 07:00
DX: F10.129 Alcohol abuse with intoxication, unspecified (principal); I10 Essential (primary) hypertension; F41.9 Anxiety disorder, unspecified; Z79.899 Other long term (current) drug therapy; Z87.891 Personal history of nicotine dependence
CPT/HCPCS: 80306; 82075; 99284

== ENCOUNTER 2020-05-22 02:02 | Observation (INO) | payer OTHER ==
--- NOTE | 2020-05-22 02:14 | ED ---
Abdominal Pain HPI - General Chief Complaint: Abdominal Pain Stated Complaint: Abd pain Time Seen by Provider: 05/22/20 02:05 Source: patient, EMS, RN notes reviewed, old records reviewed Limitations: no limitations - History of Present Illness Initial Comments: This is a 34-year-old male DF for evaluation of abdominal pain patient has known history of alcoholism does admit to drinking today abdominal pain is diffuse and generalized with history of Crohn's as well. Mild nausea no vomiting no travel history no sick contacts. Pain is. Persistent does have GI evaluation this week MD Complaint: abdominal pain -: days(s), week(s) Location: diffuse Radiation: none Migration to: epigastric, suprapubic Severity: mild Severity scale (1-10): 6 Quality: stabbing, aching Consistency: intermittent Improves With: nothing Worsens With: nothing Associated Symptoms: nausea - Related Data Home Medications Medication Instructions Recorded Confirmed Antacid Devora Anti-Gas 10 ml PO Q6H PRN 05/17/20 05/19/20 Brivaracetam [Briviact] 50 mg PO HS 05/17/20 05/19/20 Folic Acid 1 mg PO DAILY 05/17/20 05/19/20 Multivitamins, Thera [Multivitamin 1 tab PO DAILY 05/17/20 05/19/20 (formulary)] Pantoprazole Sodium [Protonix] 40 mg PO Q12H 05/17/20 05/19/20 Potassium Chloride ER [K-Dur 10] 10 meq PO AC-TID 05/17/20 05/19/20 Venlafaxine HCl [Effexor XR] 150 mg PO DAILY 05/17/20 05/19/20 Allergies Allergy/AdvReac Type Severity Reaction Status Date / Time No Known Allergies Allergy Verified 05/19/20 09:06 Review of Systems ROS Statement: Those systems with pertinent positive or pertinent negative responses have been documented in the HPI. ROS Other: All systems not noted in ROS Statement are negative. 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 History of Any Multi-Drug Resistant Organisms: None Reported Past Surgical History: Orthopedic Surgery Additional Past Surgical History / Comment(s): RIGHT ANKLE Past Anesthesia/Blood Transfusion Reactions: No Reported Reaction Past Psychological History: Anxiety Smoking Status: Former smoker Past Alcohol Use History: Daily, Heavy Past Drug Use History: None Reported - Past Family History Father History Unknown: Yes General Exam Limitations: no limitations General appearance: alert, in no apparent distress Head exam: Present: atraumatic, normocephalic, normal inspection Eye exam: Present: normal appearance, PERRL, EOMI. Absent: scleral icterus, conjunctival injection, periorbital swelling ENT exam: Present: normal exam, mucous membranes moist Neck exam: Present: normal inspection. Absent: tenderness, meningismus, lymphadenopathy Respiratory exam: Present: normal lung sounds bilaterally. Absent: respiratory distress, wheezes, rales, rhonchi, stridor Cardiovascular Exam: Present: regular rate, normal rhythm, normal heart sounds. Absent: systolic murmur, diastolic murmur, rubs, gallop, clicks GI/Abdominal exam: Present: soft, normal bowel sounds. Absent: distended, tenderness, guarding, rebound, rigid Extremities exam: Present: normal inspection, full ROM, normal capillary refill. Absent: tenderness, pedal edema, joint swelling, calf tenderness Back exam: Present: normal inspection Neurological exam: Present: alert, oriented X3, CN II-XII intact Psychiatric exam: Present: normal affect, normal mood Skin exam: Present: warm, dry, intact, normal color. Absent: rash Course Vital Signs 05/22/20 05/22/20 02:03 02:30 Temperature 98.1 F Pulse Rate 102 H 95 Respiratory 16 16 Rate Blood Pressure 153/101 153/101 O2 Sat by Pulse 97 97 Oximetry - Reevaluation(s) Reevaluation #1: 05/22/20 02:14 Medical records reviewed Reevaluation #2: 05/22/20 04:04 Patient symptoms mildly improved Medical Decision Making - Medical Decision Making 31 female the ER severe alcohol intoxication and abdominal pain. Patient scheduled for GI evaluation patient to intoxicated be discharged home will admit for alcohol intoxication pending GI evaluation - Lab Data Result diagrams: 05/22/20 03:05 05/22/20 03:05 Lab Results 05/22/20 05/22/20 05/22/20 Range/Units 03:05 03:05 03:05 WBC 4.8 (3.8-10.6) k/uL RBC 5.03 (4.30-5.90) m/uL Hgb 15.9 (13.0-17.5) gm/dL Hct 47.8 (39.0-53.0) % MCV 95.1 (80.0-100.0) fL MCH 31.7 (25.0-35.0) pg MCHC 33.4 (31.0-37.0) g/dL RDW 13.4 (11.5-15.5) % Plt Count 249 (150-450) k/uL Neutrophils % 40 % Lymphocytes % 47 % Monocytes % 6 % Eosinophils % 3 % Basophils % 1 % Neutrophils # 1.9 (1.3-7.7) k/uL Lymphocytes # 2.3 (1.0-4.8) k/uL Monocytes # 0.3 (0-1.0) k/uL Eosinophils # 0.2 (0-0.7) k/uL Basophils # 0.0 (0-0.2) k/uL Sodium 141 (137-145) mmol/L Potassium 3.2 L (3.5-5.1) mmol/L Chloride 100 (98-107) mmol/L Carbon Dioxide 27 (22-30) mmol/L Anion Gap 14 mmol/L BUN 7 L (9-20) mg/dL Creatinine 0.54 L (0.66-1.25) mg/dL Est GFR (CKD-EPI)AfAm >90 (>60 ml/min/1.73 sqM) Est GFR (CKD-EPI)NonAf >90 (>60 ml/min/1.73 sqM) Glucose 109 H (74-99) mg/dL Plasma Lactic Acid Larry 2.1 H* (0.7-2.0) mmol/L Calcium 9.3 (8.4-10.2) mg/dL Phosphorus 3.9 (2.5-4.5) mg/dL Magnesium 1.5 L (1.6-2.3) mg/dL Total Bilirubin 0.6 (0.2-1.3) mg/dL AST 187 H (17-59) U/L ALT 126 H (4-49) U/L Alkaline Phosphatase 96 (38-126) U/L Total Protein 6.8 (6.3-8.2) g/dL Albumin 4.2 (3.5-5.0) g/dL Amylase <30 L (30-110) U/L Lipase 166 (23-300) U/L Serum Alcohol 319 H* mg/dL - Radiology Data Radiology results: report reviewed (CT head and pelvis is negative for acute dis ease), image reviewed Disposition Clinical Impression: Alcohol intoxication, Abdominal pain, Crohn's colitis Disposition: ADMITTED IP TO THIS HOSP Condition: Fair Is patient prescribed a controlled substance at d/c from ED?: No Referrals: Luis Mcgee MD [Primary Care Provider] - 1-2 days
[2020-05-22] MEDS ORDERED: LORazepam 2 MG/ML INJ IV STA (02:29)
[2020-05-22] MEDS ORDERED: ONDANSETRON 4 MG/2 ML VIAL IVP STA (02:29)
[2020-05-22] MEDS ORDERED: PANTOPRAZOLE 40 MG/10 ML VIAL IVP STA (02:29)
[2020-05-22 03:13] LABS: Basophils % (A) 1 %; Eosinophils # (A) 0.2 k/uL (0-0.7); Eosinophils % (A) 3 %; HCT 47.8 % (39.0-53.0); HGB 15.9 gm/dL (13.0-17.5); Lymphocytes # (A) 2.3 k/uL (1.0-4.8); Lymphocytes % (A) 47 %; MCH 31.7 pg (25.0-35.0); MCHC 33.4 g/dL (31.0-37.0); MCV 95.1 fL (80.0-100.0); Monocytes # (A) 0.3 k/uL (0-1.0); Monocytes % (A) 6 %; Neutrophils # (A) 1.9 k/uL (1.3-7.7); Neutrophils % (A) 40 %; Platelet Count 249 k/uL (150-450); RBC 5.03 m/uL (4.30-5.90); RDW 13.4 % (11.5-15.5); WBC 4.8 k/uL (3.8-10.6)
[2020-05-22 03:32] LABS: ALT 126 U/L (4-49); AST 187 U/L (17-59); African American GFR (CKD) >90 (>60 ml/min/1.73 sqM); Albumin 4.2 g/dL (3.5-5.0); Alkaline Phosphatase 96 U/L (38-126); Amylase <30 U/L (30-110); Anion Gap 14 mmol/L; Blood Urea Nitrogen 7 mg/dL (9-20); Calcium 9.3 mg/dL (8.4-10.2); Carbon Dioxide 27 mmol/L (22-30); Chloride 100 mmol/L (98-107); Glucose 109 mg/dL (74-99); Magnesium 1.5 mg/dL (1.6-2.3); Non-African American GFR(CKD) >90 (>60 ml/min/1.73 sqM); Phosphorus 3.9 mg/dL (2.5-4.5); Potassium 3.2 mmol/L (3.5-5.1); Sodium 141 mmol/L (137-145); Total Bilirubin 0.6 mg/dL (0.2-1.3); Total Protein 6.8 g/dL (6.3-8.2)
[2020-05-22 03:52] LABS: Alcohol 319 mg/dL
--- NOTE | 2020-05-22 03:58 | CT ---
EXAMINATION TYPE: CT abdomen pelvis w con DATE OF EXAM: 05/22/2020 COMPARISON: None HISTORY: pain CT DLP: 892.9 mGycm Automated exposure control for dose reduction was used. CONTRAST: Performed with IV Contrast, patient injected with 100 mL of Isovue 300. There is mild subsegmental atelectasis at the posterior lung bases. Heart size is normal. There is no pericardial effusion. There is diffuse fatty infiltration of the liver. Spleen is intact. The stomach is intact. There is n o pancreatic mass. Gallbladder appears normal. There is no adrenal mass. Kidneys show satisfactory contrast opacification. There is no hydronephrosi s. Delayed images show normal renal excretion. Ureters are not dilated. There is no retroperitoneal a denopathy. Bladder distends smoothly. There is no inguinal hernia. There is no free fluid in the pelv is. The appendix is posterior and appears normal. There is no mesenteric edema. There is no ascites or free air. There is no sign of bowel obstruction. Lumbar vertebra have normal alignment. Disc spaces are normal. Posterior elements are intact. The bon y pelvis appears intact. IMPRESSION: Fatty infiltration of the liver. No sign of acute abdomen and pelvis. Normal appendix.
[2020-05-22] MEDS ORDERED: SODIUM CHLORIDE 0.9% 1,000 ML IV ONE (04:01)
[2020-05-22] MEDS ORDERED: LORazepam 2 MG/ML INJ IV PRN ×3 (04:03)
[2020-05-22] MEDS ORDERED: THIAMINE 100 MG/ML 2 ML VIAL IM STA (04:03)
[2020-05-22] MEDS: MULTIVITAMINS, THERA 1 EACH TAB PO SCH (12:17)
[2020-05-22] MEDS: FOLIC ACID 1 MG TAB PO SCH (12:17)
[2020-05-22] MEDS: PANTOPRAZOLE 40 MG TABLET PO SCH ×2 (12:17→20:32)
[2020-05-22] MEDS: VENLAFAXINE HCL ER 150 MG CAP PO SCH (12:17)
[2020-05-22] MEDS: POTASSIUM CHLORIDE ER 10 MEQ TAB.ER.PRT PO SCH ×2 (12:17→17:49)
[2020-05-22] MEDS ORDERED: LACTULOSE 20 GM/30 ML CUP PO ONE (12:58)
[2020-05-22] MEDS: LACTATED RINGERS 1,000 ML IV SCH ×2 (14:16→20:32)
[2020-05-22] MEDS: ENOXAPARIN 40 MG/0.4 ML SYRINGE SQ SCH (14:21)
[2020-05-22] MEDS: diazePAM 5 MG TAB PO SCH ×2 (14:21→20:31)
--- NOTE | 2020-05-22 16:30 | P.HPIM ---
History of Present Illness H&P Date: 05/22/20 Chief Complaint: Nausea vomiting abdominal pain History of presenting complaint: This is a 34-year-old patient, follows with Dr. Luis Mcgee. Patient has a history of alcoholism. In September 2019 patient had undergone rehab. Patient relapsed about 3 weeks ago. Started drinking whiskey again. Patient was admitted to the hospital from May 17 and left on May 18 bit prematurely. With alcohol withdrawal syndrome. Patient yet again presents to the ER nausea vomiting upper abdominal pain. Has been drinking again a pint of whiskey. Last drink was yesterday. No fever no chills. Last bowel movement was several days. He ate a good Vinayak meal 2 days ago. A bit anxious. Tolerated some liquids this morning. Tired rundown. Epigastric pain Review of systems: GEN.: Tired EYES: None HEENT: None NECK: None RESPIRATORY: None CARDIOVASCULAR: None GASTROINTESTINAL: As above GENITOURINARY: None MUSCULOSKELETAL: None LYMPHATICS: None HEMATOLOGICAL: None PSYCHIATRY: Anxious NEUROLOGICAL: None Past medical history to include: anxiety, alcohol use disorder Social history: Did smoke in the past. Drinking a pint of whiskey a day. Has not been working since September Lives with his father Family history: Reviewed, noncontributory to presentation Physical examination: VITAL SIGNS: 97.4, 94, 18, 141/95, 97% on room air GENERAL: BMI 28.2, laying in bed with spider nevi tired HEENT: External appearance of nose and ears normal, oral cavity dry mucous m embranes. NECK: [JVD not raised; masses not palpable]. HEART: [First and second heart sounds are normal; no edema]. LUNGS:[ Respiratory rate normal; clear to auscultation]. ABDOMEN: [Soft, mild epigastric tenderness, no guarding rigidity, liver spleen not palpable, no masses palpable]. PSYCH: [Alert and oriented x3; mood and affect anxious LYMPHATICS: No lymph or palpable neck NEUROLOGICAL: [Cranial nerves grossly intact; no facial asymmetry, power and sensation grossly intact INVESTIGATIONS, reviewed in the clinical context: White count 4.8 hemoglobin 15.9 platelets 249 potassium 3.2 creatinine 0.54 lactic acidosis 2.1 AST 187 ALT 126 Serum alcohol 319 Assessment: -Likely severe gastritis and esophagitis, from alcoholism -Acute alcohol intoxication with serum alcohol level CCCXIX -Alcohol use disorder -early alcohol withdrawal syndrome -Alcoholic hepatitis -Lactic acidosis type II from dehydration. No sepsis Plan: Patient started on lactated Ringer's. CIWA scale. Valium 2.5 mg every 8 for DVT prophylaxis. Protonix 40 mg twice a day for GI. Lovenox for DVT prophylaxis. Initially put on a clear liquid diet. We will also add Lopressor 12.5 mg by mouth 3 times a day to cut back on the adrenergic drive. Fall precautions. 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 History of Any Multi-Drug Resistant Organisms: None Reported Past Surgical History: Orthopedic Surgery Additional Past Surgical History / Comment(s): Right ankle Past Anesthesia/Blood Transfusion Reactions: No Reported Reaction Past Psychological History: Anxiety Smoking Status: Former smoker Past Alcohol Use History: Daily, Heavy Additional Past Alcohol Use History / Comment(s): Drinks a pint/day Past Drug Use History: None Reported - Past Family History Father History Unknown: Yes Medications and Allergies Home Medications Medication Instructions Recorded Confirmed Type Antacid Devora Anti-Gas 10 ml PO Q6H PRN 05/17/20 05/22/20 History Brivaracetam [Briviact] 50 mg PO HS 05/17/20 05/22/20 History Folic Acid 1 mg PO DAILY 05/17/20 05/22/20 History Multivitamins, Thera [Multivitamin 1 tab PO DAILY 05/17/20 05/22/20 History (formulary)] Pantoprazole Sodium [Protonix] 40 mg PO Q12H 05/17/20 05/22/20 History Potassium Chloride ER [K-Dur 10] 10 meq PO AC-TID 05/17/20 05/22/20 History Venlafaxine HCl [Effexor XR] 150 mg PO DAILY 05/17/20 05/22/20 History Allergies Allergy/AdvReac Type Severity Reaction Status Date / Time No Known Allergies Allergy Verified 05/22/20 08:53 Physical Exam Vitals: Vital Signs Temp Pulse Pulse Resp BP BP Pulse Ox 05/22/20 07:23 97.4 F L 94 18 141/95 97 05/22/20 04:55 98.6 F 94 138/93 97 05/22/20 04:30 97.7 F 98 16 134/98 92 L 08/01/20 04:00 143/106 93 L 05/22/20 03:00 147/132 94 L 05/22/20 02:30 95 16 153/101 97 05/22/20 02:03 98.1 F 102 H 16 153/101 97 Intake and Output 05/21/20 05/22/20 05/22/20 22:59 06:59 14:59 Intake Total 100 Balance 100 Intake: Intake, IV Titration 100 Amount Sodium Chloride 0.9% 1, 100 000 ml @ 100 mls/hr IV . Q10H ONE Rx#:[id number] Other: Voiding Method Toilet Weight 81.647 kg Results CBC & Chem 7: 05/22/20 03:05 05/22/20 03:05 Labs: Abnormal Lab Results - Last 24 Hours (Table) 05/22/20 05/22/20 Range/Units 03:05 03:05 Potassium 3.2 L (3.5-5.1) mmol/L BUN 7 L (9-20) mg/dL Creatinine 0.54 L (0.66-1.25) mg/dL Glucose 109 H (74-99) mg/dL Plasma Lactic Acid Larry 2.1 H* (0.7-2.0) mmol/L Magnesium 1.5 L (1.6-2.3) mg/dL AST 187 H (17-59) U/L ALT 126 H (4-49) U/L Amylase <30 L (30-110) U/L Serum Alcohol 319 H* mg/dL Thrombosis Risk Factor Assmnt - Choose All That Apply Any of the Below Risk Factors Present?: No Other Risk Factors: No Other congenital or acquired thrombophilia - If yes, enter type in comment: No Thrombosis Risk Factor Assessment Level: Very Low Risk
[2020-05-22] MEDS: ONDANSETRON 4 MG/2 ML VIAL IVP PRN (17:47)
[2020-05-22] MEDS: THIAMINE 100 MG TAB PO SCH (17:49)
[2020-05-22] MEDS: BRIVIACT 50 MG PO SCH (20:31)
[2020-05-22] MEDS ORDERED: NON FORMULARY DRUG (Brivaracetam [Briviact] 50 MG) PO SCH (21:00)
--- NOTE | 2020-05-22 21:32 | CONS ---
CONSULTATION DATE OF SERVICE: 05/22/2020 REASON FOR CONSULTATION: Elevated LFTs and abdominal pain. HISTORY: The patient is a 34-year-old white male with heavy alcohol abuse, came to the emergency room complaining of diffuse abdominal pain associated with nausea, vomiting for the last few days duration. The patient states that he has been drinking about a pint of alcohol a day for the last several months. He quit drinking in September at which time he underwent rehab but for the last few weeks started drinking heavily. In the ER, was noted to have alcohol level of 320. His pain is mostly in the epigastric area. He had a couple of episodes of nausea, vomiting. This morning he is feeling somewhat better. In the ER, was noted to have elevated serum transaminases with ALT and AST in the range of 100/200s. He has no history of prior liver disease. PAST MEDICAL HISTORY: Significant for alcohol abuse, history of anxiety disorder. MEDICATIONS: Medications at home include Effexor, Protonix, K-Dur, multivitamin, ( ). ALLERGIES: None. SOCIAL HISTORY: Chronic smoker, alcohol use as mentioned above. FAMILY HISTORY: Unremarkable. REVIEW OF SYSTEMS: CARDIOPULMONARY: Denies any chest pain, shortness of breath. : No dysuria or hematuria. MUSCULOSKELETAL: Unremarkable. SKIN: Unremarkable. ENDOCRINE: Unremarkable. PSYCHIATRY: History of anxiety. NEUROLOGY: Unremarkable. ENT: Vision unremarkable. GI: As mentioned above. CONSTITUTIONAL: No recent weight loss. No fever, chills, night sweats. PHYSICAL EXAMINATION: Blood pressure is 130/84, pulse rate 94, temperature 98.2 HEENT examination unremarkable. Conjunctivae pink. Sclerae anicteric. Oral cavity no lesions. NECK: No JVD or lymph node enlargement. CHEST: Clear to auscultation. HEART: Regular rate and rhythm. ABDOMEN: Soft. Bowel sounds are positive. No organomegaly. Mild tenderness in the epigastric area. EXTREMITIES: No pedal edema. SKIN: No rashes. NEUROLOGIC: Alert and oriented x3. No focal deficits. LABS: WBC 4.8, hemoglobin 15.1, platelets normal. Basic metabolic panel is within normal limits. AST and ALT are 187 and 126 respectively. T bilirubin and alkaline phosphatase are normal. Serum alcohol level 319. IMPRESSION: 1. Acute alcoholic intoxication. Serum alcohol level is 319. Patient is doing better. 2. Abdominal pain associated with nausea, vomiting of two days duration, probably related to alcohol induced gastritis. Symptoms are improving. 3. Elevated LFTs related to alcoholic liver disease. 4. History of heavy alcohol abuse. RECOMMENDATIONS: 1. Continue with Protonix 40 mg daily. 2. Repeat LFTs in the morning. 3. Obtain hepatitis viral serologies for A, B and C. 4. Start him on a clear liquid diet and advance as tolerated. 5. Will follow with you closely. Thank you for this consultation. MMODL / IJN: [id number] /
[2020-05-23] MEDS: ONDANSETRON 4 MG/2 ML VIAL IVP PRN (02:18)
[2020-05-23] MEDS: diazePAM 5 MG TAB PO SCH ×3 (06:09→21:17)
[2020-05-23] MEDS: MULTIVITAMINS, THERA 1 EACH TAB PO SCH (07:20)
[2020-05-23] MEDS: POTASSIUM CHLORIDE ER 10 MEQ TAB.ER.PRT PO SCH ×3 (07:20→17:20)
[2020-05-23] MEDS: PANTOPRAZOLE 40 MG TABLET PO SCH ×2 (07:20→21:17)
[2020-05-23] MEDS: ENOXAPARIN 40 MG/0.4 ML SYRINGE SQ SCH (07:20)
[2020-05-23] MEDS: VENLAFAXINE HCL ER 150 MG CAP PO SCH (07:20)
[2020-05-23] MEDS: FOLIC ACID 1 MG TAB PO SCH (07:21)
[2020-05-23] MEDS: THIAMINE 100 MG TAB PO SCH ×2 (07:21→17:20)
[2020-05-23] MEDS: LACTATED RINGERS 1,000 ML IV SCH ×4 (07:24→21:16)
[2020-05-23 11:06] LABS: Basophils % (A) 1 %; Eosinophils # (A) 0.2 k/uL (0-0.7); Eosinophils % (A) 5 %; HCT 44.6 % (39.0-53.0); HGB 15.2 gm/dL (13.0-17.5); Lymphocytes # (A) 1.6 k/uL (1.0-4.8); Lymphocytes % (A) 41 %; MCH 32.2 pg (25.0-35.0); MCV 94.8 fL (80.0-100.0); Mean Platelet Volume 8.1; Monocytes # (A) 0.3 k/uL (0-1.0); Monocytes % (A) 7 %; Neutrophils # (A) 1.7 k/uL (1.3-7.7); Neutrophils % (A) 44 %; Platelet Count 196 k/uL (150-450); RBC 4.71 m/uL (4.30-5.90); WBC 3.8 k/uL (3.8-10.6)
[2020-05-23 11:17] LABS: ALT 84 U/L (4-49); AST 89 U/L (17-59); African American GFR (CKD) >90 (>60 ml/min/1.73 sqM); Albumin 3.6 g/dL (3.5-5.0); Alkaline Phosphatase 79 U/L (38-126); Anion Gap 7 mmol/L; Blood Urea Nitrogen 2 mg/dL (9-20); Calcium 8.8 mg/dL (8.4-10.2); Carbon Dioxide 28 mmol/L (22-30); Chloride 98 mmol/L (98-107); Glucose 81 mg/dL (74-99); Non-African American GFR(CKD) >90 (>60 ml/min/1.73 sqM); Potassium 3.6 mmol/L (3.5-5.1); Sodium 133 mmol/L (137-145); Total Bilirubin 1.7 mg/dL (0.2-1.3); Total Protein 6.2 g/dL (6.3-8.2)
--- NOTE | 2020-05-23 16:17 | PN ---
PROGRESS NOTE DATE OF DICTATION: May 23, 2020 Patient is a 34-year-old pleasant white male with history of alcoholic intoxication, admitted to the hospital with abdominal pain, nausea, vomiting and some diarrhea. He is feeling much better today. He still has some epigastric pain. On a clear liquid diet, tolerating well. PHYSICAL EXAMINATION: He appears comfortable. No apparent distress. Vital signs stable. Blood pressure is 145/92, pulse rate 61, temperature 98.1. HEENT examination unremarkable. Conjunctivae pink. Sclerae anicteric. Oral cavity no lesions. NECK: No JVD or lymph node enlargement. CHEST was clear to auscultation. HEART: Regular rate and rhythm. ABDOMEN: Soft. Mild tenderness in the epigastric area. Rest of the abdomen was benign. Bowel sounds are positive. EXTREMITIES: No pedal edema. SKIN no rashes. NEUROLOGIC: Alert and oriented x3. No focal deficits. LABS: From today AST and ALT have decreased to 89 and 84 respectively. T-bilirubin is 1.7. CBC with differential count is within normal limits. IMPRESSION: 1. Acute alcoholic intoxication, improving. 2. Abdominal pain associated with nausea and vomiting, probably related to acute alcoholic gastritis, presently on Protonix and Zofran and doing much better. 3. Elevated LFTs, probably related to alcoholic liver disease. 4. History of heavy alcohol abuse. RECOMMENDATION: 1. Continue with Protonix 40 mg daily. 2. Antiemetics as needed. 3. Advance diet as tolerated. 4. Repeat labs in the morning. 5. Abstinence from alcohol. Thank you for this consultation. MMODL / IJN: [id number] /
[2020-05-23] MEDS: BRIVIACT 50 MG PO SCH (21:17)
--- NOTE | 2020-05-23 22:16 | P.PN ---
Progress Note - Text Progress Note Date: 05/23/20 Chief Complaint: Nausea vomiting abdominal pain History of presenting complaint: This is a 34-year-old patient, follows with Dr. Luis Mcgee. Patient has a history of alcoholism. In September 2019 patient had undergone rehab. Patient relapsed about 3 weeks ago. Started drinking whiskey again. Patient was admitted to the hospital from May 17 and left on May 18 bit prematurely. With alcohol withdrawal syndrome. Patient yet again presents to the ER nausea vo miting upper abdominal pain. Has been drinking again a pint of whiskey. Last drink was yesterday. No fever no chills. Last bowel movement was several days. He ate a good [employer] ([employer]) meal 2 days ago. A bit anxious. Tolerated some liquids this morning. Tired rundown. Epigastric pain Admitted with alcohol-induced esophagitis gastritis, alcohol withdrawal syndrome, dehydration. Started on Valium, Lopressor, IV fluids. Today-some nausea. On a liquid diet. He is a bit better. Tired. Epigastric pain present. Bit better Review of systems: Was done for constitutional, cardiovascular, GI, pulmonary. relevant finding as above Active Medications Diazepam (Valium) 2.5 mg PO Q8H [facility] Last Admin: 05/23/20 21:17 Dose: 2.5 mg Documented by: Enoxaparin Sodium (Lovenox) 40 mg SQ DAILY [facility] Last Admin: 05/23/20 07:20 Dose: 40 mg Documented by: Folic Acid (Folic Acid) 1 mg PO DAILY [facility] Last Admin: 05/23/20 07:21 Dose: 1 mg Documented by: Lactated Ringer's (Lactated Ringers) 1,000 mls @ 150 mls/hr IV .Q6H40M [facility] Last Admin: 05/23/20 21:16 Dose: 150 mls/hr Documented by: Lorazepam (Ativan) 1 mg IV Q2HR PRN PRN Reason: CIWA 8 or 9 Last Admin: 05/22/20 19:53 Dose: 1 mg Documented by: Lorazepam (Ativan) 1 mg IV Q1HR PRN PRN Reason: CIWA 10 to 15 Lorazepam (Ativan) 2 mg IV Q10M PRN PRN Reason: CIWA 16 or higher Stop: 05/24/20 04:03 Multivitamins (Theragran) 1 each PO DAILY [facility] Last Admin: 05/23/20 07:20 Dose: 1 each Documented by: Briviact ( Brivaracetam) 50 Mg Tablet 50 mg PO HS [facility] Last Admin: 05/23/20 21:17 Dose: 50 mg Documented by: Ondansetron HCl (Zofran) 4 mg IVP Q6HR PRN PRN Reason: Nausea And Vomiting Last Admin: 05/23/20 02:18 Dose: 4 mg Documented by: Pantoprazole Sodium (Protonix) 40 mg PO Q12H [facility] Last Admin: 05/23/20 21:17 Dose: 40 mg Documented by: Potassium Chloride (K-Dur 10) 10 meq PO AC-TID [facility] Last Admin: 05/23/20 17:20 Dose: 10 meq Documented by: Thiamine HCl (Vitamin B-1) 100 mg PO BID-W/MEALS [facility] Last Admin: 05/23/20 17:20 Dose: 100 mg Documented by: Venlafaxine HCl (Effexor Xr) 150 mg PO DAILY [facility] Last Admin: 05/23/20 07:20 Dose: 150 mg Documented by: Physical examination: VITAL SIGNS: 98.5, 69, 18, 148/80, 97% room air GENERAL: Laying in bed, spider nevi, looking a bit better HEENT: External appearance of nose and ears normal, oral cavity normal. NECK: JVD not raised; masses not palpable. HEART: First and second heart sounds are normal; no edema. LUNGS: Respiratory rate normal; clear to auscultation. ABDOMEN: Soft, mild epigastric tenderness, no guarding rigidity, liver spleen not palpable, no masses palpable. PSYCH: [Alert and oriented x3; mood and affect anxious INVESTIGATIONS, reviewed in the clinical context: White count 16 globin 10.8 Previous testing White count 4.8 hemoglobin 15.9 platelets 249 potassium 3.2 creatinine 0.54 lactic acidosis 2.1 AST 187 ALT 126 Serum alcohol 319 Assessment: -Likely severe gastritis and esophagitis, from alcoholism, nausea vomiting -Acute alcohol intoxication with serum alcohol level CCCXIX -Alcohol use disorder -early alcohol withdrawal syndrome -Alcoholic hepatitis -Lactic acidosis type II from dehydration. No sepsis Plan: We will cut back her dose of Valium this evening. Keep on IV fluids. Diet being advanced. Encouraged to be out of bed. Hopefully discharge tomorrow.
[2020-05-24] MEDS: LACTATED RINGERS 1,000 ML IV SCH (03:19)
[2020-05-24 05:30] VITALS: TEMP 98.4
[2020-05-24 07:30] VITALS: BP 145/99; PULSE 64; RESP 16
[2020-05-24] MEDS: VENLAFAXINE HCL ER 150 MG CAP PO SCH (07:36)
[2020-05-24] MEDS: diazePAM 2 MG TAB PO SCH ×2 (07:36→07:39)
[2020-05-24] MEDS: FOLIC ACID 1 MG TAB PO SCH (07:36)
[2020-05-24] MEDS: MULTIVITAMINS, THERA 1 EACH TAB PO SCH (07:36)
[2020-05-24] MEDS: ENOXAPARIN 40 MG/0.4 ML SYRINGE SQ SCH (07:36)
[2020-05-24] MEDS: POTASSIUM CHLORIDE ER 10 MEQ TAB.ER.PRT PO SCH (07:36)
[2020-05-24] MEDS: THIAMINE 100 MG TAB PO SCH (07:36)
[2020-05-24 09:29] LABS: ALT 65 U/L (4-49); AST 70 U/L (17-59); African American GFR (CKD) >90 (>60 ml/min/1.73 sqM); Albumin 3.5 g/dL (3.5-5.0); Alkaline Phosphatase 75 U/L (38-126); Anion Gap 6 mmol/L; Blood Urea Nitrogen 2 mg/dL (9-20); Calcium 9.4 mg/dL (8.4-10.2); Carbon Dioxide 27 mmol/L (22-30); Chloride 101 mmol/L (98-107); Glucose 132 mg/dL (74-99); Non-African American GFR(CKD) >90 (>60 ml/min/1.73 sqM); Potassium 3.6 mmol/L (3.5-5.1); Sodium 134 mmol/L (137-145); Total Bilirubin 1.5 mg/dL (0.2-1.3)
[2020-05-24 11:33] LABS: Hepatitis A Antibody IgM Non-Reactive (Non-Reactive); Hepatitis B Core IgM Non-Reactive (Non-Reactive); Hepatitis B Surface Antigen Non-Reactive (Non-Reactive); Hepatitis C IgG Antibody Non-Reactive (Non-Reactive)
--- NOTE | 2020-05-24 21:47 | PN ---
PROGRESS NOTE DATE OF DICTATION: 05/24/2020 This patient is a 34-year-old white male admitted to the hospital with acute alcoholic intoxication and abdominal pain associated with nausea and vomiting. He is feeling much better. Abdominal pain has improved. Mild pain in the left lower quadrant area. No nausea or vomiting. On a regular diet, tolerating well. PHYSICAL EXAMINATION: Appears comfortable. VITAL SIGNS: Stable. Blood pressure 145/90, pulse rate 64, temperature 98.4. HEENT examination unremarkable. Conjunctivae pink. Sclerae anicteric. Oral cavity no lesions. NECK: No JVD or lymph node enlargement. CHEST: Clear to auscultation. HEART: Regular rate and rhythm. ABDOMEN: Soft. Non-tender. Bowel sounds are positive. EXTREMITIES: No pedal edema. NEUROLOGIC: Alert and oriented x3. No focal deficits. LABS: Labs from today show that ALT and AST have improved to 70 and 65, respectively. T- bilirubin 1.5. IMPRESSION: 1. Abdominal pain, nausea, vomiting, resolved. 2. Elevated liver function tests and mild jaundice secondary to alcoholic liver disease. 3. History of heavy alcohol abuse. RECOMMENDATIONS: 1. Continue Protonix 40 mg daily. 2. Advance diet as tolerated. 3. Monitor LFTs closely. 4. He can be discharged home today with outpatient followup in 4 weeks. 5. Abstinence from alcohol. Thank you for this consultation. MMODL / IJN: [id number] /
--- NOTE | 2020-05-24 22:27 | P.DS ---
Providers Date of admission: 05/22/20 04:01 Expected date of discharge: 05/24/20 Attending physician: Jarret Marcelino Consults: 05/22/20 04:04 Consult Physician Routine Consulting Provider: Sondra Cervantes Consult Reason/Comments: known Do you want consulting provider notified?: Yes Primary care physician: Luis Mcgee MD Hospital Course: Chief Complaint: Nausea vomiting abdominal pain History of presenting complaint: This is a 34-year-old patient, follows with Dr. Luis Mcgee. Patient has a history of alcoholism. In September 2019 patient had undergone rehab. Patient relapsed about 3 weeks ago. Started drinking whiskey again. Patient was admitted to the hospital from May 17 and left on May 18 bit prematurely. With alcohol withdrawal syndrome. Patient yet again presents to the ER nausea vomiting upper abdominal pain. Has been drinking again a pint of whiskey. Last drink was yesterday. No fever no chills. Last bowel movement was several days. He ate a good [employer] meal 2 days ago. A bit anxious. Tolerated some liquids this morning. Tired rundown. Epigastric pain Admitted with alcohol-induced esophagitis gastritis, alcohol withdrawal syndrome, dehydration. Started on Valium, Lopressor, IV fluids. Today-abdomen. Much improved. Had a full breakfast. Up and about. Patient advised against alcohol. Valium discontinued. Consultation: Dr. Debra Cervantes from GI Physical examination: VITAL SIGNS: 98.4, 64, 16, 145/99, 96% room air GENERAL: Laying in bed, comfortable HEENT: External appearance of nose and ears normal, oral cavity normal. NECK: JVD not raised; masses not palpable. HEART: First and second heart sounds are normal; no edema. LUNGS: Respiratory rate normal; clear to auscultation. ABDOMEN: Soft, no tenderness, no guarding rigidity, liver spleen not palpable, no masses palpable. PSYCH: [Alert and oriented x3; mood and affect better INVESTIGATIONS, reviewed in the clinical context: White count 3.8 potassium 3.6 Previous testing White count 4.8 hemoglobin 15.9 platelets 249 potassium 3.2 creatinine 0.54 lactic acidosis 2.1 AST 187 ALT 126 Serum alcohol 319 Hepatitis screen with a and B and C negative Assessment: -Likely severe gastritis and esophagitis, from alcoholism, nausea vomiting -Acute alcohol intoxication with serum alcohol level 319 -Alcohol use disorder -early alcohol withdrawal syndrome -Alcoholic hepatitis -Lactic acidosis type II from dehydration. No sepsis Disposition: Home Patient Condition at Discharge: Stable Plan - Discharge Summary Discharge Rx Participant: No New Discharge Prescriptions: New Thiamine [Vitamin B-1] 100 mg PO DAILY #30 tab Continue Multivitamins, Thera [Multivitamin (formulary)] 1 tab PO DAILY Potassium Chloride ER [K-Dur 10] 10 meq PO AC-TID Pantoprazole Sodium [Protonix] 40 mg PO Q12H Folic Acid 1 mg PO DAILY Brivaracetam [Briviact] 50 mg PO HS Venlafaxine HCl [Effexor XR] 150 mg PO DAILY Antacid Devora Anti-Gas 10 ml PO Q6H PRN PRN Reason: GAS PAIN Discharge Medication List Antacid Devora Anti-Gas 10 ml PO Q6H PRN 05/17/20 [History] Brivaracetam [Briviact] 50 mg PO HS 05/17/20 [History] Folic Acid 1 mg PO DAILY 05/17/20 [History] Multivitamins, Thera [Multivitamin (formulary)] 1 tab PO DAILY 05/17/20 [History] Pantoprazole Sodium [Protonix] 40 mg PO Q12H 05/17/20 [History] Potassium Chloride ER [K-Dur 10] 10 meq PO AC-TID 05/17/20 [History] Venlafaxine HCl [Effexor XR] 150 mg PO DAILY 05/17/20 [History] Thiamine [Vitamin B-1] 100 mg PO DAILY #30 tab 05/24/20 [Rx] Follow up Appointment(s)/Referral(s): Luis Mcgee MD [Primary Care Provider] - 1-2 days Activity/Diet/Wound Care/Special Instructions: home meds down in pharmacy. please return before discharge. soft bland diet Discharge Disposition: HOME SELF-CARE
== END 2020-05-24 13:52 | disposition home or self-care (01) ==
LOC: EC 02:02 → 4SSUR 04:01
PROVIDERS: ADMIT Hospitalist; ATTEND Hospitalist
DX: F10.229 Alcohol dependence with intoxication, unspecified (principal); F10.239 Alcohol dependence with withdrawal, unspecified; K70.10 Alcoholic hepatitis without ascites; R11.2 Nausea with vomiting, unspecified; R10.84 Generalized abdominal pain; R10.13 Epigastric pain; R19.7 Diarrhea, unspecified; E86.0 Dehydration; E87.2 Acidosis; R10.32 Left lower quadrant pain; K50.10 Crohn's disease of large intestine without complications; I10 Essential (primary) hypertension; G40.89 Other seizures; F41.9 Anxiety disorder, unspecified; Y90.8 Blood alcohol level of 240 mg/100 ml or more; Z03.818 Encounter for observation for suspected exposure to other biological agents ruled out; Z79.899 Other long term (current) drug therapy; Z86.73 Personal history of transient ischemic attack (TIA), and cerebral infarction without residual deficits; Z98.890 Other specified postprocedural states; Z87.891 Personal history of nicotine dependence
CPT/HCPCS: 96376 ×2; 96361 ×3; 96372 ×4; 96374; 96375; 99285; 36415; 80053 ×3; 80074; 82150; 83605; 83690; 83735; 84100; 85025 ×2; 74177; G0378 ×3; G0480; U0003; J2060; J3411; J2405 ×2; J1650 ×3; C9113; Q9967; 80320

== ENCOUNTER 2020-05-29 03:22 | Emergency (ER) | payer OTHER ==
[2020-05-29 03:28] VITALS: TEMP 98.9
[2020-05-29] MEDS ORDERED: DICYCLOMINE 20 MG TAB PO STA (03:32)
[2020-05-29] MEDS ORDERED: HYDROmorphone 0.5 MG/0.5 ML SYRINGE IVP STA (03:58)
[2020-05-29] MEDS ORDERED: LORazepam 2 MG/ML INJ IV STA (03:58)
[2020-05-29] MEDS ORDERED: PROMETHAZINE INJ 25 MG in SODIUM CHLORIDE 0.9% 50 ML IVPB STA (03:58)
[2020-05-29 04:02] LABS: Basophils # (A) 0.1 k/uL (0-0.2); Basophils % (A) 2 %; Eosinophils # (A) 0.1 k/uL (0-0.7); Eosinophils % (A) 1 %; HCT 48.4 % (39.0-53.0); HGB 15.8 gm/dL (13.0-17.5); Lymphocytes % (A) 40 %; MCH 31.1 pg (25.0-35.0); MCHC 32.6 g/dL (31.0-37.0); MCV 95.2 fL (80.0-100.0); Mean Platelet Volume 7.3; Monocytes # (A) 0.3 k/uL (0-1.0); Monocytes % (A) 5 %; Neutrophils # (A) 2.5 k/uL (1.3-7.7); Neutrophils % (A) 50 %; Platelet Count 265 k/uL (150-450); RBC 5.09 m/uL (4.30-5.90); RDW 13.1 % (11.5-15.5)
--- NOTE | 2020-05-29 04:14 | XR ---
EXAMINATION TYPE: XR KUB DATE OF EXAM: 05/29/2020 COMPARISON: 05/04/2020 HISTORY: Abdominal pain TECHNIQUE: FINDINGS: 2 views upright show no sign of intestinal obstruction or pneumoperitoneum. Fecal pattern i s normal. There is no evidence of a mass. There are no pathologic calcifications over the kidneys. Adrianne ng bases are clear. IMPRESSION: Nonacute abdomen. No change.
[2020-05-29 04:17] LABS: ALT 76 U/L (4-49); AST 113 U/L (17-59); African American GFR (CKD) >90 (>60 ml/min/1.73 sqM); Albumin 4.5 g/dL (3.5-5.0); Alkaline Phosphatase 107 U/L (38-126); Amylase 30 U/L (30-110); Anion Gap 15 mmol/L; Blood Urea Nitrogen 8 mg/dL (9-20); C Reactive Protein <5.0 mg/L (<10.0); Calcium 9.3 mg/dL (8.4-10.2); Carbon Dioxide 25 mmol/L (22-30); Chloride 98 mmol/L (98-107); Glucose 91 mg/dL (74-99); Non-African American GFR(CKD) >90 (>60 ml/min/1.73 sqM); Potassium 3.9 mmol/L (3.5-5.1); Sodium 138 mmol/L (137-145); Total Protein 7.2 g/dL (6.3-8.2)
[2020-05-29 04:33] LABS: Appearance,Urine Cloudy (Clear); Bilirubin,Urine Negative (Negative); Blood,Urine Negative (Negative); Color,Urine Yellow; Glucose,Urine (UA) Negative (Negative); Ketones,Urine 2+ (Negative); Leukocyte Esterase,Urine Negative (Negative); Mucus,Urine Occasional /hpf; Nitrite,Urine Negative (Negative); Protein,Urine Trace (Negative); Specific Gravity,Urine 1.019 (1.001-1.035); Urobilinogen,Urine <2.0 mg/dL (<2.0); WBC,Urine 1 /hpf (0-5)
[2020-05-29] MEDS ORDERED: SODIUM CHLORIDE 0.9% 1,000 ML IV ONE (04:46)
--- NOTE | 2020-05-29 06:12 | ED ---
Abdominal Pain HPI - General Chief Complaint: Abdominal Pain Stated Complaint: Abdominal Pain Time Seen by Provider: 05/29/20 03:28 Source: patient, EMS Mode of arrival: EMS Limitations: no limitations - History of Present Illness Initial Comments: This patient is a 34-year-old man with history of previous episodes of colitis who presents to be evaluated for abdominal pain. The patient states symptoms came on yesterday and when they worsened he did go to [facility]. Patient states that he was evaluated, had treatment including IV fluids and medication and then was discharged. Patient states that the pain worsened over the course of the night and he called EMS and they brought him here. He has had associated nausea and vomiting. No change in bowel movements. No change in urination. He indicates pain diffusely throughout the abdomen. He denies any radiation to the scrotum or testicles. MD Complaint: abdominal pain Onset/Timin -: days(s) Location: diffuse Radiation: back Migration to: no migration Severity: moderate Quality: cramping, aching Consistency: constant Improves With: nothing Worsens With: nothing Associated Symptoms: nausea, vomiting - Related Data Home Medications Medication Instructions Recorded Confirmed Antacid Devora Anti-Gas 10 ml PO Q6H PRN 05/17/20 05/22/20 Brivaracetam [Briviact] 50 mg PO HS 05/17/20 05/22/20 Folic Acid 1 mg PO DAILY 05/17/20 05/22/20 Multivitamins, Thera [Multivitamin 1 tab PO DAILY 05/17/20 05/22/20 (formulary)] Pantoprazole Sodium [Protonix] 40 mg PO Q12H 05/17/20 05/22/20 Potassium Chloride ER [K-Dur 10] 10 meq PO AC-TID 05/17/20 05/22/20 Venlafaxine HCl [Effexor XR] 150 mg PO DAILY 05/17/20 05/22/20 Previous Rx's Medication Instructions Recorded Thiamine [Vitamin B-1] 100 mg PO DAILY #30 tab 05/24/20 LORazepam [Ativan] 1 mg PO TID 5 Days #15 tab 05/29/20 Allergies Allergy/AdvReac Type Severity Reaction Status Date / Time No Known Allergies Allergy Verified 05/29/20 04:54 Review of Systems ROS Statement: Those systems with pertinent positive or pertinent negative responses have been documented in the HPI. ROS Other: All systems not noted in ROS Statement are negative. Constitutional: Denies: fever, chills Respiratory: Denies: cough, dyspnea Cardiovascular: Denies: chest pain, palpitations, edema, syncope Gastrointestinal: Reports: abdominal pain, nausea, vomiting. 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 Absent: scleral icterus, conjunctival injection ENT exam: Present: normal oropharynx Neck exam: Present: normal inspection Respiratory exam: Present: normal lung sounds bilaterally. Absent: respiratory distress, wheezes, rales, rhonchi, stridor Cardiovascular Exam: Present: regular rate, normal rhythm, normal heart sounds. Absent: systolic murmur, diastolic murmur, rubs, gallop GI/Abdominal exam: Present: soft, normal bowel sounds. Absent: distended, tenderness, guarding, rebound, rigid, mass, pulsatile mass, hernia Extremities exam: Present: normal inspection, normal capillary refill. Absent: pedal edema, calf tenderness Back exam: Present: normal inspection. Absent: CVA tenderness (R), CVA tenderness (L) Neurological exam: Present: alert, other (Patient appears slightly tremulous.) Skin exam: Present: warm, dry, intact, normal color. Absent: rash Course Vital Signs 05/29/20 05/29/20 05/29/20 03:23 04:18 04:45 Temperature 98.9 F Pulse Rate 93 Respiratory 19 Rate Blood Pressure 154/109 155/107 138/98 O2 Sat by Pulse 99 94 L 93 L Oximetry 05/29/20 05/29/20 05/29/20 05:00 05:15 05:30 Temperature Pulse Rate Respiratory Rate Blood Pressure 143/97 139/102 150/99 O2 Sat by Pulse 96 96 99 Oximetry Medical Decision Making - Medical Decision Making This patient is 34-year-old man presenting to be evaluated for diffuse abdominal pain. Patient also appears slightly tremulous and in discussion admits to drinking approximately a pint of whiskey per day. Patient does state that he is planning to go for alcohol rehabilitation on . The patient is feeling better following the fluids and medication. The workup remarkable only for mild elevation of transaminases which is suspected to be interlaced patient's alcohol consumption. Will give patient a prescription for Ativan to use 2 help bridge him through until his rehabilitation stent. We discussed appropriate further care and follow-up as well as return parameters. - Lab Data Result diagrams: 05/29/20 03:55 05/29/20 03:55 Lab Results 05/29/20 05/29/20 05/29/20 Range/Units 03:55 03:55 04:20 WBC 5.0 (3.8-10.6) k/uL RBC 5.09 (4.30-5.90) m/uL Hgb 15.8 (13.0-17.5) gm/dL Hct 48.4 (39.0-53.0) % MCV 95.2 (80.0-100.0) fL MCH 31.1 (25.0-35.0) pg MCHC 32.6 (31.0-37.0) g/dL RDW 13.1 (11.5-15.5) % Plt Count 265 (150-450) k/uL Neutrophils % 50 % Lymphocytes % 40 % Monocytes % 5 % Eosinophils % 1 % Basophils % 2 % Neutrophils # 2.5 (1.3-7.7) k/uL Lymphocytes # 2.0 (1.0-4.8) k/uL Monocytes # 0.3 (0-1.0) k/uL Eosinophils # 0.1 (0-0.7) k/uL Basophils # 0.1 (0-0.2) k/uL Sodium 138 (137-145) mmol/L Potassium 3.9 (3.5-5.1) mmol/L Chloride 98 (98-107) mmol/L Carbon Dioxide 25 (22-30) mmol/L Anion Gap 15 mmol/L BUN 8 L (9-20) mg/dL Creatinine 0.60 L (0.66-1.25) mg/dL Est GFR (CKD-EPI)AfAm >90 (>60 ml/min/1.73 sqM) Est GFR (CKD-EPI)NonAf >90 (>60 ml/min/1.73 sqM) Glucose 91 (74-99) mg/dL Calcium 9.3 (8.4-10.2) mg/dL Total Bilirubin 1.0 (0.2-1.3) mg/dL AST 113 H (17-59) U/L ALT 76 H (4-49) U/L Alkaline Phosphatase 107 (38-126) U/L C-Reactive Protein <5.0 (<10.0) mg/L Total Protein 7.2 (6.3-8.2) g/dL Albumin 4.5 (3.5-5.0) g/dL Amylase 30 (30-110) U/L Lipase 202 (23-300) U/L Urine Color Yellow Urine Appearance Cloudy (Clear) Urine pH 8.0 (5.0-8.0) Ur Specific [place] 1.019 (1.001-1.035) Urine Protein Trace H (Negative) Urine Glucose (UA) Negative (Negative) Urine Ketones 2+ H (Negative) Urine Blood Negative (Negative) Urine Nitrite Negative (Negative) Urine Bilirubin Negative (Negative) Urine Urobilinogen <2.0 (<2.0) mg/dL Ur Leukocyte Esterase Negative (Negative) Urine WBC 1 (0-5) /hpf Urine Mucus Occasional H (None) /hpf Disposition Clinical Impression: Abdominal pain, Alcohol withdrawal syndrome Disposition: HOME SELF-CARE Condition: Good Instructions (If sedation given, give patient instructions): Abdominal Pain (ED) Prescriptions: LORazepam [Ativan] 1 mg PO TID 5 Days #15 tab Is patient prescribed a controlled substance at d/c from ED?: No Referrals: Luis Mcgee MD [Primary Care Provider] - 1-2 days
[2020-05-29 06:26] VITALS: BP 138/97; PULSE 107; RESP 17
== END 2020-05-29 06:26 | disposition home or self-care (01) ==
LOC: EC 03:22
DX: F10.239 Alcohol dependence with withdrawal, unspecified (principal); R10.84 Generalized abdominal pain; R74.0 Nonspecific elevation of levels of transaminase and lactic acid dehydrogenase [LDH]; I10 Essential (primary) hypertension; F41.9 Anxiety disorder, unspecified; Z79.899 Other long term (current) drug therapy; G40.89 Other seizures; Z87.891 Personal history of nicotine dependence; Z87.19 Personal history of other diseases of the digestive system; Z86.73 Personal history of transient ischemic attack (TIA), and cerebral infarction without residual deficits
CPT/HCPCS: 36415; 80053; 82150; 83690; 85025; 86140; 81001; 74018; 96365; 96375 ×2; 96361; 99284; J2060; J2550; J1170

== ENCOUNTER 2020-05-30 03:21 | Emergency (ER) | payer OTHER ==
[2020-05-30 03:26] VITALS: RESP 18; TEMP 97.9
[2020-05-30] MEDS ORDERED: SODIUM CHLORIDE 0.9% 1,000 ML IV ONE (03:44)
[2020-05-30] MEDS ORDERED: LORazepam 2 MG/ML INJ IV STA (03:44)
[2020-05-30 03:53] LABS: Basophils # (A) 0.1 k/uL (0-0.2); Basophils % (A) 1 %; Eosinophils # (A) 0.2 k/uL (0-0.7); Eosinophils % (A) 2 %; HCT 51.1 % (39.0-53.0); HGB 16.5 gm/dL (13.0-17.5); Lymphocytes # (A) 4.5 k/uL (1.0-4.8); MCH 30.6 pg (25.0-35.0); MCHC 32.2 g/dL (31.0-37.0); Mean Platelet Volume 7.4; Monocytes # (A) 0.3 k/uL (0-1.0); Monocytes % (A) 5 %; Neutrophils # (A) 1.3 k/uL (1.3-7.7); Neutrophils % (A) 20 %; Platelet Count 254 k/uL (150-450); RBC 5.37 m/uL (4.30-5.90); RDW 13.1 % (11.5-15.5); WBC 6.4 k/uL (3.8-10.6)
[2020-05-30 04:00] LABS: Lymphocytes % (A) 70 %
[2020-05-30 04:12] LABS: ALT 72 U/L (4-49); AST 107 U/L (17-59); African American GFR (CKD) >90 (>60 ml/min/1.73 sqM); Albumin 4.5 g/dL (3.5-5.0); Alkaline Phosphatase 96 U/L (38-126); Amylase 30 U/L (30-110); Anion Gap 12 mmol/L; Blood Urea Nitrogen 6 mg/dL (9-20); C Reactive Protein <5.0 mg/L (<10.0); Calcium 8.8 mg/dL (8.4-10.2); Carbon Dioxide 26 mmol/L (22-30); Chloride 103 mmol/L (98-107); Glucose 109 mg/dL (74-99); Non-African American GFR(CKD) >90 (>60 ml/min/1.73 sqM); Potassium 4.2 mmol/L (3.5-5.1); Sodium 141 mmol/L (137-145); Total Bilirubin 0.7 mg/dL (0.2-1.3); Total Protein 7.2 g/dL (6.3-8.2)
[2020-05-30] MEDS ORDERED: PROMETHAZINE INJ 25 MG in SODIUM CHLORIDE 0.9% 50 ML IVPB STA (04:58)
[2020-05-30 05:19] VITALS: BP 151/78; PULSE 90
--- NOTE | 2020-05-30 05:43 | ED ---
Abdominal Pain HPI - General Chief Complaint: Abdominal Pain Stated Complaint: Abdominal Pain Time Seen by Provider: 05/30/20 03:35 Source: patient Mode of arrival: ambulatory Limitations: no limitations - History of Present Illness MD Complaint: abdominal pain -: hour(s) Location: LUQ, RUQ, epigastric Radiation: none Migration to: no migration Severity: severe Quality: stabbing, burning Consistency: constant Improves With: nothing Worsens With: nothing Associated Symptoms: nausea, vomiting - Related Data Home Medications Medication Instructions Recorded Confirmed Brivaracetam [Briviact] 100 mg PO BID 05/17/20 05/31/20 Folic Acid 1 mg PO DAILY 05/17/20 05/31/20 Ondansetron Odt [Zofran ODT] 4 mg PO DAILY PRN 05/31/20 05/31/20 hydrOXYzine HCL 25 mg PO TID 05/31/20 05/31/20 Previous Rx's Medication Instructions Recorded Thiamine [Vitamin B-1] 100 mg PO DAILY #30 tab 05/24/20 Naltrexone HCl [Revia] 50 mg PO DAILY #30 tab 06/01/20 Pantoprazole [Protonix] 40 mg PO AC-BRKFST #30 tablet.dr 06/01/20 Venlafaxine HCl ER [Effexor XR] 225 mg PO DAILY #30 cap.er.24h 06/01/20 traZODone HCL [Desyrel] 50 mg PO HS #30 tab 06/01/20 Allergies Allergy/AdvReac Type Severity Reaction Status Date / Time No Known Allergies Allergy Verified 05/31/20 08:41 Review of Systems ROS Statement: Those systems with pertinent positive or pertinent negative responses have been documented in the HPI. ROS Other: All systems not noted in ROS Statement are negative. Constitutional: Denies: fever, chills, weakness Respiratory: Denies: cough, dyspnea Cardiovascular: Denies: chest pain, palpitations, edema, syncope Gastrointestinal: Reports: abdominal pain, nausea, vomiting. Denies: diarrhea, constipation, hematemesis, melena, hematochezia Genitourinary: Denies: dysuria, hematuria, testicular pain Skin: Denies: rash Neurological: Denies: headache 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 History of Any Multi-Drug Resistant Organisms: None Reported Past Surgical History: Orthopedic Surgery Additional Past Surgical History / Comment(s): Right ankle Past Anesthesia/Blood Transfusion Reactions: No Reported Reaction Past Psychological History: Anxiety Smoking Status: Former smoker Past Alcohol Use History: Daily, Heavy Past Drug Use History: None Reported - Past Family History Father History Unknown: Yes General Exam Limitations: no limitations General appearance: alert, in no apparent distress Head exam: Present: atraumatic, normocephalic Eye exam: Present: normal appearance. Absent: scleral icterus, conjunctival injection ENT exam: Present: mucous membranes dry Neck exam: Present: normal inspection Cardiovascular Exam: Present: normal rhythm, tachycardia, normal heart sounds. Absent: systolic murmur, diastolic murmur, rubs, gallop GI/Abdominal exam: Present: soft. Absent: distended, tenderness, guarding, rebound, rigid, mass, pulsatile mass, hernia Extremities exam: Present: normal inspection, normal capillary refill. Absent: pedal edema, calf tenderness Back exam: Absent: CVA tenderness (R), CVA tenderness (L) Neurological exam: Present: alert Skin exam: Present: warm, dry, intact, normal color. Absent: rash Course Vital Signs 05/30/20 05/30/20 03:22 05:16 Temperature 97.9 F Pulse Rate 115 H 90 Respiratory 18 18 Rate Blood Pressure 149/106 151/78 O2 Sat by Pulse 96 99 Oximetry Medical Decision Making - Lab Data Result diagrams: 05/30/20 03:45 05/30/20 03:45 Lab Results 05/30/20 05/30/20 Range/Units 03:45 03:45 WBC 6.4 (3.8-10.6) k/uL RBC 5.37 (4.30-5.90) m/uL Hgb 16.5 (13.0-17.5) gm/dL Hct 51.1 (39.0-53.0) % MCV 95.0 (80.0-100.0) fL MCH 30.6 (25.0-35.0) pg MCHC 32.2 (31.0-37.0) g/dL RDW 13.1 (11.5-15.5) % Plt Count 254 (150-450) k/uL Neutrophils % 20 % Lymphocytes % 70 % Monocytes % 5 % Eosinophils % 2 % Basophils % 1 % Neutrophils # 1.3 (1.3-7.7) k/uL Lymphocytes # 4.5 (1.0-4.8) k/uL Monocytes # 0.3 (0-1.0) k/uL Eosinophils # 0.2 (0-0.7) k/uL Basophils # 0.1 (0-0.2) k/uL Sodium 141 (137-145) mmol/L Potassium 4.2 (3.5-5.1) mmol/L Chloride 103 (98-107) mmol/L Carbon Dioxide 26 (22-30) mmol/L Anion Gap 12 mmol/L BUN 6 L (9-20) mg/dL Creatinine 0.60 L (0.66-1.25) mg/dL Est GFR (CKD-EPI)AfAm >90 (>60 ml/min/1.73 sqM) Est GFR (CKD-EPI)NonAf >90 (>60 ml/min/1.73 sqM) Glucose 109 H (74-99) mg/dL Calcium 8.8 (8.4-10.2) mg/dL Total Bilirubin 0.7 (0.2-1.3) mg/dL AST 107 H (17-59) U/L ALT 72 H (4-49) U/L Alkaline Phosphatase 96 (38-126) U/L C-Reactive Protein <5.0 (<10.0) mg/L Total Protein 7.2 (6.3-8.2) g/dL Albumin 4.5 (3.5-5.0) g/dL Amylase 30 (30-110) U/L Lipase 198 (23-300) U/L Disposition Clinical Impression: Abdominal pain Disposition: HOME SELF-CARE Condition: Good Instructions (If sedation given, give patient instructions): Abdominal Pain (ED) Is patient prescribed a controlled substance at d/c from ED?: No Referrals: Luis Mcgee MD [Primary Care Provider] - 1-2 days
== END 2020-05-30 06:13 | disposition home or self-care (01) ==
LOC: EC 03:21
DX: R10.11 Right upper quadrant pain (principal); R10.12 Left upper quadrant pain; R10.13 Epigastric pain; R11.2 Nausea with vomiting, unspecified; I10 Essential (primary) hypertension; Z79.899 Other long term (current) drug therapy; Z86.73 Personal history of transient ischemic attack (TIA), and cerebral infarction without residual deficits; Z87.891 Personal history of nicotine dependence
CPT/HCPCS: 36415; 80053; 82150; 83690; 85025; 86140; 99284; 96365; 96375; 96361; J2060; J2550; 96374

== ENCOUNTER 2020-05-30 21:12 | Observation (INO) | payer OTHER ==
--- NOTE | 2020-05-30 22:10 | ED ---
General Adult HPI - General Chief complaint: Alcohol Stated complaint: ETOH Time Seen by Provider: 05/30/20 21:28 Source: patient, family Mode of arrival: wheelchair Limitations: no limitations - History of Present Illness Initial comments: Dictation was produced using [employer] dictation software. please excuse any grammatical, word or spelling errors. This patient was cared for during a federal and state declared state of emergency secondary to Covid 19 Chief Complaint: 34-year-old male with multiple comorbidities presents with EtOH intoxication and fall. History of Present Illness: Patient is a 34-year-old male he is not a reliable historian. Patient drinks a pint of hard liquor every day. He states that he has abdominal pain that he fell today. Patient states he has had seizure history. Patient has had EtOH withdrawal seizure in the past. He does not know when he fell but he recently noticed a small laceration to his upper lip area. The ROS documented in this emergency department record has been reviewed and confirmed by me. Those systems with pertinent positive or negative responses have been documented in the HPI. All other systems are other negative and/or noncontributory. PHYSICAL EXAM: General Impression: Alert and oriented x3, not in acute distress, spell was of EtOH, inebriated HEENT: Normocephalic atraumatic, small 1 mm superficial laceration to the right upper lip superior to the vermilion border, extra-ocular movements intact, pupils equal and reactive to light bilaterally, mucous membranes moist. Cardiovascular: Heart regular rate and rhythm Chest: Able to complete full sentences, no retractions, no tachypnea Abdomen: abdomen soft, mild tenderness to the epigastric area, non-distended, no organomegaly Musculoskeletal: Pulses present and equal in all extremities, no peripheral edema Motor: no focal deficits noted Neurological: CN II-XII grossly intact, no focal motor or sensory deficits noted Skin: Intact with no visualized rashes Psych: Normal affect and mood ED course: 34-year-old male presents with acute EtOH intoxication. There is concern that perhaps he fell today. Signs upon arrival shows heart rate of 135, rest of vital signs within acceptable limits. Computed tomography scan of the head and C-spine was obtained shows no acute intracranial abnormality. There is a hypodensity in the central vivi which could relate to lacunar infarct. Negative computed tomography scan of the cervical spine. Patient reports he has a history of strokes. According to his medication list does not take any medications for stroke. Laboratory evaluation obtained. CBC, coag panel unremarkable. Metabolic panel is unremarkable. Alcohol level is 386. Patient's clinically inebriated. Patient be admitted for EtOH intoxication. Patient left withdrawal. He will be placed on CIWA protocol with variable dose Ativan protocol. Discussed patient case with Malik mid-level provider for [facility] who is willing to accept patient on behalf of the [facility]. EKG interpretation: Ventricular rate 121, sinus tachycardia,. 136, QRS 92, QTc 437. No FL prolongation, no QTC prolongation, no ST or T-wave changes noted. - Related Data Home Medications Medication Instructions Recorded Confirmed Antacid Devora Anti-Gas 10 ml PO Q6H PRN 05/17/20 05/22/20 Brivaracetam [Briviact] 50 mg PO HS 05/17/20 05/22/20 Folic Acid 1 mg PO DAILY 05/17/20 05/22/20 Multivitamins, Thera [Multivitamin 1 tab PO DAILY 05/17/20 05/22/20 (formulary)] Pantoprazole Sodium [Protonix] 40 mg PO Q12H 05/17/20 05/22/20 Potassium Chloride ER [K-Dur 10] 10 meq PO AC-TID 05/17/20 05/22/20 Venlafaxine HCl [Effexor XR] 150 mg PO DAILY 05/17/20 05/22/20 Previous Rx's Medication Instructions Recorded Thiamine [Vitamin B-1] 100 mg PO DAILY #30 tab 05/24/20 LORazepam [Ativan] 1 mg PO TID 5 Days #15 tab 05/29/20 Allergies Allergy/AdvReac Type Severity Reaction Status Date / Time No Known Allergies Allergy Verified 05/30/20 03:26 Review of Systems ROS Statement: Those systems with pertinent positive or pertinent negative responses have been documented in the HPI. ROS Other: All systems not noted in ROS Statement are negative. 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 History of Any Multi-Drug Resistant Organisms: None Reported Past Surgical History: Orthopedic Surgery Additional Past Surgical History / Comment(s): Right ankle Past Anesthesia/Blood Transfusion Reactions: No Reported Reaction Past Psychological History: Anxiety Smoking Status: Former smoker Past Alcohol Use History: Daily, Heavy Past Drug Use History: None Reported - Past Family History Father History Unknown: Yes General Exam Limitations: no limitations Course Vital Signs 05/30/20 21:16 Temperature 98.4 F Pulse Rate 135 H Respiratory 20 Rate Blood Pressure 146/92 O2 Sat by Pulse 94 L Oximetry Medical Decision Making - Lab Data Result diagrams: 05/30/20 22:03 05/30/20 22:03 Lab Results 05/30/20 05/30/20 05/30/20 Range/Units 22:03 22:03 22:03 WBC 4.9 (3.8-10.6) k/uL RBC 5.14 (4.30-5.90) m/uL Hgb 15.8 (13.0-17.5) gm/dL Hct 48.9 (39.0-53.0) % MCV 95.0 (80.0-100.0) fL MCH 30.6 (25.0-35.0) pg MCHC 32.2 (31.0-37.0) g/dL RDW 13.0 (11.5-15.5) % Plt Count 236 (150-450) k/uL Neutrophils % 44 % Lymphocytes % 45 % Monocytes % 6 % Eosinophils % 3 % Basophils % 1 % Neutrophils # 2.1 (1.3-7.7) k/uL Lymphocytes # 2.2 (1.0-4.8) k/uL Monocytes # 0.3 (0-1.0) k/uL Eosinophils # 0.1 (0-0.7) k/uL Basophils # 0.1 (0-0.2) k/uL PT 10.8 (9.0-12.0) sec INR 1.0 (<1.2) APTT 22.9 (22.0-30.0) sec Sodium 142 (137-145) mmol/L Potassium 4.0 (3.5-5.1) mmol/L Chloride 103 (98-107) mmol/L Carbon Dioxide 23 (22-30) mmol/L Anion Gap 16 mmol/L BUN 4 L (9-20) mg/dL Creatinine 0.51 L (0.66-1.25) mg/dL Est GFR (CKD-EPI)AfAm >90 (>60 ml/min/1.73 sqM) Est GFR (CKD-EPI)NonAf >90 (>60 ml/min/1.73 sqM) Glucose 104 H (74-99) mg/dL Calcium 9.0 (8.4-10.2) mg/dL Magnesium 1.8 (1.6-2.3) mg/dL Total Bilirubin 0.8 (0.2-1.3) mg/dL AST 145 H (17-59) U/L ALT 74 H (4-49) U/L Alkaline Phosphatase 93 (38-126) U/L Total Protein 7.0 (6.3-8.2) g/dL Albumin 4.3 (3.5-5.0) g/dL Lipase 79 (23-300) U/L Urine Opiates Screen (NotDetected) Ur Oxycodone Screen (NotDetected) Urine Methadone Screen (NotDetected) Ur Propoxyphene Screen (NotDetected) Ur Barbiturates Screen (NotDetected) U Tricyclic Antidepress (NotDetected) Ur Phencyclidine Scrn (NotDetected) Ur Amphetamines Screen (NotDetected) U Methamphetamines Scrn (NotDetected) U Benzodiazepines Scrn (NotDetected) Urine Cocaine Screen (NotDetected) U Marijuana (THC) Screen (NotDetected) Serum Alcohol 386 H* mg/dL 05/30/20 Range/Units 22:15 WBC (3.8-10.6) k/uL RBC (4.30-5.90) m/uL Hgb (13.0-17.5) gm/dL Hct (39.0-53.0) % MCV (80.0-100.0) fL MCH (25.0-35.0) pg MCHC (31.0-37.0) g/dL RDW (11.5-15.5) % Plt Count (150-450) k/uL Neutrophils % % Lymphocytes % % Monocytes % % Eosinophils % % Basophils % % Neutrophils # (1.3-7.7) k/uL Lymphocytes # (1.0-4.8) k/uL Monocytes # (0-1.0) k/uL Eosinophils # (0-0.7) k/uL Basophils # (0-0.2) k/uL PT (9.0-12.0) sec INR (<1.2) APTT (22.0-30.0) sec Sodium (137-145) mmol/L Potassium (3.5-5.1) mmol/L Chloride (98-107) mmol/L Carbon Dioxide (22-30) mmol/L Anion Gap mmol/L BUN (9-20) mg/dL Creatinine (0.66-1.25) mg/dL Est GFR (CKD-EPI)AfAm (>60 ml/min/1.73 sqM) Est GFR (CKD-EPI)NonAf (>60 ml/min/1.73 sqM) Glucose (74-99) mg/dL Calcium (8.4-10.2) mg/dL Magnesium (1.6-2.3) mg/dL Total Bilirubin (0.2-1.3) mg/dL AST (17-59) U/L ALT (4-49) U/L Alkaline Phosphatase (38-126) U/L Total Protein (6.3-8.2) g/dL Albumin (3.5-5.0) g/dL Lipase (23-300) U/L Urine Opiates Screen Not Detected (NotDetected) Ur Oxycodone Screen Not Detected (NotDetected) Urine Methadone Screen Not Detected (NotDetected) Ur Propoxyphene Screen Not Detected (NotDetected) Ur Barbiturates Screen Not Detected (NotDetected) U Tricyclic Antidepress Not Detected (NotDetected) Ur Phencyclidine Scrn Not Detected (NotDetected) Ur Amphetamines Screen Not Detected (NotDetected) U Methamphetamines Scrn Not Detected (NotDetected) U Benzodiazepines Scrn Detected H (NotDetected) Urine Cocaine Screen Not Detected (NotDetected) U Marijuana (THC) Screen Not Detected (NotDetected) Serum Alcohol mg/dL Disposition Clinical Impression: Alcohol intoxication, Suicidal behavior Disposition: ADMITTED IP TO THIS [facility] Condition: Fair Referrals: Luis Mcgee MD [Primary Care Provider] - 1-2 days Decision Time: 23:00
[2020-05-30 22:28] LABS: Basophils # (A) 0.1 k/uL (0-0.2); Basophils % (A) 1 %; Eosinophils # (A) 0.1 k/uL (0-0.7); Eosinophils % (A) 3 %; HCT 48.9 % (39.0-53.0); HGB 15.8 gm/dL (13.0-17.5); Lymphocytes # (A) 2.2 k/uL (1.0-4.8); Lymphocytes % (A) 45 %; MCH 30.6 pg (25.0-35.0); MCHC 32.2 g/dL (31.0-37.0); Mean Platelet Volume 7.7; Monocytes # (A) 0.3 k/uL (0-1.0); Monocytes % (A) 6 %; Neutrophils # (A) 2.1 k/uL (1.3-7.7); Neutrophils % (A) 44 %; Platelet Count 236 k/uL (150-450); RBC 5.14 m/uL (4.30-5.90); WBC 4.9 k/uL (3.8-10.6)
--- NOTE | 2020-05-30 22:36 | CT ---
EXAMINATION TYPE: CT brain en wo con DATE OF EXAM: 05/30/2020 COMPARISON: None HISTORY: Seizure with Right frontal injury. CT DLP: 1493.1 mGycm Automated exposure control for dose reduction was used. Ventricles and sulci appear normal. There is no mass effect nor midline shift. There is no sign of in tracranial hemorrhage. There is no evidence of cerebral edema. Calvarium is intact. Sella turcica michael ears normal. There is 11 mm irregular area of hypodensity in the central vivi. Cervical vertebra have normal alignment. Disc spaces are fairly normal. Posterior elements are intact . Facet joints are intact. The skull base is intact. Prevertebral soft tissues appear normal. IMPRESSION: No acute intracranial abnormality. Hypodensity in the central vivi could relate to lacunar infarct. Negative CT scan cervical spine.
[2020-05-30 22:39] LABS: Partial Thromboplastin Time 22.9 sec (22.0-30.0); Prothrombin Time 10.8 sec (9.0-12.0)
[2020-05-30 22:43] LABS: ALT 74 U/L (4-49); AST 145 U/L (17-59); African American GFR (CKD) >90 (>60 ml/min/1.73 sqM); Albumin 4.3 g/dL (3.5-5.0); Alkaline Phosphatase 93 U/L (38-126); Anion Gap 16 mmol/L; Blood Urea Nitrogen 4 mg/dL (9-20); Carbon Dioxide 23 mmol/L (22-30); Chloride 103 mmol/L (98-107); Glucose 104 mg/dL (74-99); Lipase 79 U/L (23-300); Magnesium 1.8 mg/dL (1.6-2.3); Non-African American GFR(CKD) >90 (>60 ml/min/1.73 sqM); Sodium 142 mmol/L (137-145); Total Bilirubin 0.8 mg/dL (0.2-1.3)
[2020-05-30 22:50] LABS: Amphetamine Screen,Urine Not Detected (NotDetected); Barbiturate Screen,Urine Not Detected (NotDetected); Benzodiazepines Screen,Urine Detected (NotDetected); Cocaine Screen,Urine Not Detected (NotDetected); Methadone Screen, Urine Not Detected (NotDetected); Opiate Screen,Urine Not Detected (NotDetected); Oxycodone Screen, Urine Not Detected (NotDetected); Phencyclidine Screen,Urine Not Detected (NotDetected); Tricyclic Antidepressant,Urine Not Detected (NotDetected); Urn Cannabinoid Scrn Not Detected (NotDetected)
[2020-05-30 22:52] LABS: Alcohol 386 mg/dL
[2020-05-30] MEDS ORDERED: SODIUM CHLORIDE 0.9% 1,000 ML IV STA (22:56)
[2020-05-30] MEDS ORDERED: LORazepam 2 MG/ML INJ IV PRN ×2 (22:57)
[2020-05-30] MEDS ORDERED: NALOXONE 0.4 MG/ML 1 ML VIAL IV PRN (22:57)
[2020-05-30] MEDS ORDERED: ACETAMINOPHEN TAB 325 MG TAB PO PRN (22:57)
[2020-05-30] MEDS ORDERED: THIAMINE 100 MG/ML 2 ML VIAL IM STA (22:57)
[2020-05-30] MEDS: SODIUM CHLORIDE 0.9% 1,000 ML IV SCH (23:05)
[2020-05-31] MEDS: LORazepam 2 MG/ML INJ IV PRN ×2 (04:30→20:26)
[2020-05-31] MEDS: THIAMINE 100 MG TAB PO SCH ×3 (07:36→15:39)
[2020-05-31] MEDS: SODIUM CHLORIDE 0.9% 1,000 ML IV SCH ×2 (07:36→15:40)
[2020-05-31] MEDS ORDERED: ONDANSETRON ODT 4 MG TAB PO PRN (11:57)
[2020-05-31] MEDS ORDERED: VENLAFAXINE HCL ER 150 MG CAP PO SCH (12:00)
[2020-05-31] MEDS: NON FORMULARY DRUG (Brivaracetam [Briviact] 100 MG) PO SCH ×2 (12:07→20:34)
[2020-05-31] MEDS: hydrOXYzine HCL 25 MG TAB PO SCH ×3 (12:19→20:26)
[2020-05-31] MEDS: FOLIC ACID 1 MG TAB PO SCH (12:20)
[2020-05-31] MEDS ORDERED: VENLAFAXINE HCL ER 75 MG CAP PO STA (14:18)
--- NOTE | 2020-05-31 14:27 | P.CN ---
Psychiatric Consult - . Consult date: 05/31/20 Consult:: 05/31/20 14:19 IDENTIFYING DATA: This patient is a 34-year-old male who currently lives with his father in the house is single has no kids and is unemployed. HISTORY OF PRESENT ILLNESS: The patient presented to the hospital yesterday in a inebriated state intoxicated from alcohol and had a fall at home. Patient reportedly had abdominal pain that he is complaining of. He had stated in the ER that he currently drinks a pint of hard liquor per day. He also mentioned that he has withdrawal symptoms from alcohol and has had withdrawal seizures in the past. Patient's blood alcohol level was 386, LFTs were elevated and UDS is positive for benzodiazepines. Patient was seen by psychiatry today for patient's suicidal thoughts that he reported. Patient was seen at the bedside with his one-to-one sitter is agreeable to speak to typewriter ribbon winder. Patient had poor hygiene and grooming and appeared to be having anxiety mainly from alcohol withdrawal. He states that he has been relapsing on alcohol for the past month and states that he wants to stop drinking. He claims that he has an intake at [facility] for rehab next week. He states that he is also having flareups of his colitis having nausea and vomiting and claims that she may have had a seizure at home. He also states that he got "banged up" in the shower when he fell. He states that he does not have any active suicidal plans however states that "I don't love myself and if something were to happen then a well". He states that he has been depressed about his alcohol use and states that it occurred after his neurologist put him on an name antiepileptic medication that caused his depression and states that he has been sleeping poorly and has elevated anxiety. He states that he does have tremulousness at this time and has been sweating due to the withdrawal from alcohol. At this time patient denies any suicidal or homical ideations, intent or plan. Patient denies any auditory, visual hallucinations and denies any paranoia or delusions. Patients admits to using alcohol as mentioned above and states that he has gone to rehab twice in the past. He admits to cigarette use. PAST PSYCHIATRIC HISTORY: Patient has a a history of anxiety and depression. Dale lugo is currently on Effexor for his mood. Patient denies any previous psychiatric hospitalizations. Patient denies any psychiatric outpatient follow- up. Patient denies any history of suicide attempts in the past. PAST MEDICAL HISTORY: Hypertension, colitis, seizures, stroke. ALLERGIES: as per EMR. CHEMICAL DEPENDENCY HISTORY: as per HPI. FAMILY PSYCHIATRIC/SUBSTANCE USE HISTORY: denies SOCIAL HISTORY: Patient was born and raised in [place] and states that he completed high school. He states that he worked numerous jobs after high school and recently worked as a painter rough. He is currently unemployed at this time. He states that he lives with his father in the house has no kids is single. MENTAL STATUS EXAM: General Appearance: Patient appears to be stated age is alert, directable however is guarded, and appears to be anxious. Patient appears to have poor hygiene and grooming wearing hospital gown with poor eye contact. Behavior: Patient is calmly lying in bed without any agitated behavior. Appears to be anxious and in withdrawals. Speech: Patient's speech is fluent and nonpressured. Mood/Affect: Patient reports their mood is "depressed", affect is congruent and constricted Suicidality/Homicidality: Patient denies having any suicidal or homicidal ideation intent or plan. He admits to passive suicidal thoughts. Perceptions: Patient denies any visual hallucinations and denies any auditory hallucinations Though content/process: There is no evidence of any delusional thought content and thought process is linear and goal-directed. [place]. Memory and concentration: AOX3, grossly intact for the purposes of this session. Can spell "WORLD" backwards Judgment and insight: poor IMPRESSIONS: Depressive disorder unspecified, rule out secondary to alcohol use Alcohol use disorder, moderate and severe, currently withdrawal PLAN: -At this time patient DOES NOT meet criteria for inpatient psychiatric admission, however will continue to follow patient on the medical floors to see if she will need inpatient psychiatric hospitalization. -Would recommend the following medication changes/additions: Patient is already on Effexor 150 mg daily, we will increase to 225 mg for mood/anxiety. Patient is agreeable to start trazodone 50 mg daily at bedtime for insomnia/mood tonight. Patient is also agreeable to start naltrexone by mouth 50 mg daily for alcohol cravings. -Continue with [facility] protocol for alcohol withdrawal with Ativan when necessary. Continue to monitor vital signs. -Continue 1:1 sitter for safety, we'll consider discontinuing this tomorrow -Will continue to follow along -Adjuster spoke with patient about his alcohol use and patient claims that he is motivated to stop drinking and states that he has an intake appointment at [facility] for rehab. -please contact with any questions.
[2020-05-31] MEDS: NALTREXONE HCL 50 MG TAB PO SCH (15:39)
[2020-05-31] MEDS ORDERED: traZODone HCL 50 MG TAB PO SCH (21:00)
--- NOTE | 2020-05-31 21:54 | P.HPIM ---
History of Present Illness H&P Date: 05/31/20 Chief Complaint: Acute alcohol intoxication Patient is a 34-year-old male with a known history of colitis, history of Crohn's disease, alcohol abuse, alcohol withdrawal seizures, anxiety and previous history of smoking presents to ER with acute alcohol intoxication and fall. Patient does drink about a pint of hard liquor every day. Patient states that he was having abdominal pain for the past several days and was supposed to follow with GI clinic for EGD. Denied any nausea vomiting. No hematemesis or melena. Patient fell and had a small laceration on his upper lip. Denies any fever or chills. No chest pain or shortness of breath. Patient states that her father thinks he was trying to commit suicide. Patient otherwise denied any plan. CT head and cervical spine done in the ER showed no acute intracranial abnormality. Hypodensity in the central vivi could relate to lacunar infarct. Negative CT scan of cervical spine EKG showed sinus tachycardia Laboratory data showed WBC 4.9, hemoglobin 15.8 and platelets 236 Sodium 142, potassium 4.0, BUN 4 and creatinine 0.51 AST 145, ALT 74 UDS is positive for benzodiazepines Serum alcohol level is 386 on admission Review of Systems Constitutional: Patient denies any fever or chills . No generalized weakness or weight loss. Abdomen: Patient denied nausea vomiting and diarrhea and abdominal pain. Cardiovascular: Patient denies any chest pain or short of breath no palpitations. Respiratory: patient denied any cough is from production. No shortness of breath Neurologic: Patient denied any numbness or tingling headache. Musculoskeletal: Patient denies any complaints of joint swelling or deformity. Skin: Negative Psychiatric: Negative Endocrine: No heat or cold intolerance. No recent weight gain. Genitourinary: No dysuria or hematuria. All other 14 point ROS negative except the above 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 History of Any Multi-Drug Resistant Organisms: None Reported Past Surgical History: Orthopedic Surgery Additional Past Surgical History / Comment(s): Right ankle Past Anesthesia/Blood Transfusion Reactions: No Reported Reaction Past Psychological History: Anxiety Smoking Status: Former smoker Past Alcohol Use History: Daily, Heavy Additional Past Alcohol Use History / Comment(s): Drinks a pint/day for the past month; pt states his last drink was on 06/30/20 Past Drug Use History: None Reported - Past Family History Father History Unknown: Yes Medications and Allergies Home Medications Medication Instructions Recorded Confirmed Type Brivaracetam [Briviact] 100 mg PO BID 05/17/20 05/31/20 History Folic Acid 1 mg PO DAILY 05/17/20 05/31/20 History Venlafaxine HCl [Effexor XR] 150 mg PO DAILY 05/17/20 05/31/20 History Thiamine [Vitamin B-1] 100 mg PO DAILY #30 tab 05/24/20 05/31/20 Rx LORazepam [Ativan] 1 mg PO TID 5 Days #15 tab 05/29/20 05/31/20 Rx Ondansetron Odt [Zofran Odt] 4 mg PO DAILY PRN 05/31/20 05/31/20 History hydrOXYzine HCL 25 mg PO TID 05/31/20 05/31/20 History Allergies Allergy/AdvReac Type Severity Reaction Status Date / Time No Known Allergies Allergy Verified 05/31/20 08:41 Physical Exam Vitals: Vital Signs Temp Pulse Pulse Resp BP BP Pulse Ox 05/31/20 07:13 98.3 F 101 H 18 148/98 94 L 05/31/20 00:00 96 05/30/20 23:09 98.3 F 108 H 18 128/94 92 L 05/30/20 21:16 98.4 F 135 H 20 146/92 94 L Intake and Output 05/30/20 05/31/20 05/31/20 22:59 06:59 14:59 Intake Total 1100 Balance 1100 Intake: Oral 1100 Other: Voiding Method Toilet # Voids 1 Weight 81.647 kg 81.647 kg PHYSICAL EXAMINATION: Patient is lying in the bed comfortably, no acute distress, awake alert and oriented.. HEENT: Normocephalic. Neck is supple. Pupils reactive. Nostrils clear. Oral cavity is moist. Ears reveal no drainage. Neck reveals no JVD, carotid bruits, or thyromegaly. CHEST EXAMINATION: Trachea is central. Symmetrical expansion. Lung gay clear to auscultation and percussion. CARDIAC: Normal S1, S2 with no gallops. No murmurs ABDOMEN: Soft. Bowel sounds normal. No organomegaly. No abdominal bruits. Extremities: reveal no edema. No clubbing or cyanosis Neurologically awake, alert, oriented x3 with well-coordinated movements. No focal deficits noted Skin: No rash or skin lesions. Psychiatric: Coperative. Nonsuicidal Musculoskeletal: No joint swelling or deformity. Normal range of motion. Results CBC & Chem 7: 05/30/20 22:03 05/30/20 22:03 Labs: Abnormal Lab Results - Last 24 Hours (Table) 05/30/20 05/30/20 Range/Units 22:03 22:15 BUN 4 L (9-20) mg/dL Creatinine 0.51 L (0.66-1.25) mg/dL Glucose 104 H (74-99) mg/dL AST 145 H (17-59) U/L ALT 74 H (4-49) U/L U Benzodiazepines Scrn Detected H (NotDetected) Serum Alcohol 386 H* mg/dL Thrombosis Risk Factor Assmnt - DVT/VTE Prophylaxis DVT/VTE Prophylaxis: Pharmacologic Prophylaxis ordered - Choose All That Apply Each Factor Represents 1 point: Obesity (BMI >25) Thrombosis Risk Factor Assessment Total Risk Factor Score: 1 Thrombosis Risk Factor Assessment Level: Low Risk Assessment and Plan Assessment: Acute alcohol intoxication with alcohol level 386 on admission Abdominal pain mainly in the epigastric area. Possible alcoholic gastritis Severe alcohol abuse Acute suicidal ideation History of colitis and Crohn's disease currently not on any medication History of smoking Alcohol withdrawal seizures on antiepileptics at home DVT prophylaxis with heparin subcu Plan: Patient will be continued on IV hydration and PPI twice daily. Continue with thiamine and monitor vitamins. Monitor for alcohol withdrawal symptoms. Continue with home medications and psychiatry was consulted. Further recommendations based on the clinical course. Time with Patient: Greater than 30
[2020-05-31] MEDS: PANTOPRAZOLE 40 MG/10 ML VIAL IVP SCH (21:59)
[2020-06-01] MEDS: SODIUM CHLORIDE 0.9% 1,000 ML IV SCH ×2 (00:06→07:32)
[2020-06-01] MEDS: LORazepam 2 MG/ML INJ IV PRN (04:43)
[2020-06-01 06:46] LABS: African American GFR (CKD) >90 (>60 ml/min/1.73 sqM); Anion Gap 6 mmol/L; Blood Urea Nitrogen <2 mg/dL (9-20); Carbon Dioxide 25 mmol/L (22-30); Chloride 102 mmol/L (98-107); Glucose 79 mg/dL (74-99); Non-African American GFR(CKD) >90 (>60 ml/min/1.73 sqM); Potassium 3.8 mmol/L (3.5-5.1); Sodium 133 mmol/L (137-145)
[2020-06-01 06:55] LABS: Basophils % (A) 1 %; Eosinophils # (A) 0.2 k/uL (0-0.7); Eosinophils % (A) 4 %; HGB 14.2 gm/dL (13.0-17.5); Lymphocytes # (A) 1.4 k/uL (1.0-4.8); Lymphocytes % (A) 39 %; MCH 30.7 pg (25.0-35.0); MCHC 32.3 g/dL (31.0-37.0); MCV 95.1 fL (80.0-100.0); Mean Platelet Volume 7.9; Monocytes # (A) 0.3 k/uL (0-1.0); Monocytes % (A) 7 %; Neutrophils # (A) 1.7 k/uL (1.3-7.7); Neutrophils % (A) 47 %; Platelet Count 168 k/uL (150-450); RBC 4.63 m/uL (4.30-5.90); RDW 12.8 % (11.5-15.5); WBC 3.7 k/uL (3.8-10.6)
[2020-06-01] MEDS: hydrOXYzine HCL 25 MG TAB PO SCH (07:31)
[2020-06-01] MEDS: NON FORMULARY DRUG (Brivaracetam [Briviact] 100 MG) PO SCH (07:31)
[2020-06-01] MEDS: PANTOPRAZOLE 40 MG/10 ML VIAL IVP SCH (07:32)
[2020-06-01] MEDS: FOLIC ACID 1 MG TAB PO SCH (07:32)
[2020-06-01] MEDS: NALTREXONE HCL 50 MG TAB PO SCH (07:32)
[2020-06-01] MEDS: THIAMINE 100 MG TAB PO SCH ×2 (07:33)
[2020-06-01 07:38] VITALS: BP 138/90; PULSE 83; RESP 17; TEMP 98.6
[2020-06-01] MEDS ORDERED: VENLAFAXINE HCL ER 75 MG CAP PO SCH (09:00)
--- NOTE | 2020-06-01 13:34 | P.PN ---
Progress Note - Text Progress Note Date: 06/01/20 Interval History: Patient was seen today for psychiatric follow-up regarding alcohol withdrawal/ use and depression. Patient was restarted on his home medications and his Effexor was increased yesterday and started on naltrexone and trazodone. Patient states that he tolerated medications well and claims that his mood has improved significantly since yesterday. He states that he is feeling less "shaky today". He also stated that he is looking forward to going to [facility] on for substance rehab. He states that he is feeling anxious about it but knows he has to complete the program. He claims that he has a lot to live for and states that "I love myself when one her myself". He mentioned other protective factors such as his family and his future. He claims that he is able to sleep better last night and wants to remain on the same medications. He was able to tolerate food well. At this time patient denies any suicidal or homical ideations, intent or plan. Patient denies any auditory, visual hallucinations and denies any paranoia or delusions. Patient denies any side effects from the medications and has been compliant with meds. Mental Status Exam: General Appearance: Patient appears to be stated age is alert, directable and appears to be less anxious today. Patient appears to have improved hygiene and grooming wearing hospital gown Behavior: Patient is calmly lying in bed without any agitated behavior. Appears to be less anxious today and more cooperative. Speech: Patient's speech is fluent and nonpressured. Mood/Affect: Patient reports their mood is "better", affect is congruent Suicidality/Homicidality: Patient denies having any suicidal or homicidal ideation intent or plan. He denies any suicidal thoughts today. Perceptions: Patient denies any visual hallucinations and denies any auditory hallucinations Though content/process: There is no evidence of any delusional thought content and thought process is linear and goal-directed. [place]. Future oriented. Memory and concentration: AOX3, grossly intact for the purposes of this session Judgment and insight: Improving Assessment Depressive disorder unspecified, rule out secondary to alcohol use Alcohol use disorder, moderate and severe, currently withdrawal Plan: -At this time patient DOES NOT meet criteria for inpatient psychiatric admission, however will continue to follow patient on the medical floors to see if she will need inpatient psychiatric hospitalization. -Would recommend the following medication changes/additions: Continue Effexor 225 mg daily for mood/anxiety. Continue with trazodone 50 mg daily at bedtime for insomnia/mood tonight. Continue with naltrexone by mouth 50 mg daily for alcohol cravings. -Continue with [facility] protocol for alcohol withdrawal with Ativan when necessary. Continue to monitor vital signs. -One-to-one sitter can be discontinued at this time as patient is not suicidal and no longer period -Disease Case Manager spoke with patient about his alcohol use and patient claims that he is motivated to stop drinking and already has an appointment for intake at [facility] for rehab set for at noon. -Psychiatry will sign off at this time, please contact with any questions.
[2020-06-01] MEDS ORDERED: PANTOPRAZOLE 40 MG TABLET PO SCH (17:30)
--- NOTE | 2020-06-15 22:28 | P.DS ---
Providers Date of admission: 06/01/20 09:59 Expected date of discharge: 06/01/20 Attending physician: Tima Foy Consults: 05/30/20 22:57 Consult Physician Routine Consulting Provider: Christian Esparza Consult Reason/Comments: suicidal Do you want consulting provider notified?: Yes Primary care physician: Luis Mcgee MD Hospital Course: Discharge diagnosis Acute alcohol intoxication with alcohol level 386 on admission Abdominal pain mainly in the epigastric area. Possible alcoholic gastritis Severe alcohol abuse Acute suicidal ideation. History of colitis and Crohn's disease currently not on any medication History of smoking Alcohol withdrawal seizures on antiepileptics at home DVT prophylaxis with heparin subcu Hospital course Patient is a 34-year-old male with a known history of colitis, history of Crohn's disease, alcohol abuse, alcohol withdrawal seizures, anxiety and previous history of smoking presents to ER with acute alcohol intoxication and fall. Patient does drink about a pint of hard liquor every day. Patient states that he was having abdominal pain for the past several days and was supposed to follow with GI clinic for EGD. Denied any nausea vomiting. No hematemesis or melena. Patient fell and had a small laceration on his upper lip. Denies any fever or chills. No chest pain or shortness of breath. Patient states that her father thinks he was trying to commit suicide. Patient otherwise denied any plan. CT head and cervical spine done in the ER showed no acute intracranial abnormality. Hypodensity in the central vivi could relate to lacunar infarct. Negative CT scan of cervical spine EKG showed sinus tachycardia Laboratory data showed WBC 4.9, hemoglobin 15.8 and platelets 236 Sodium 142, potassium 4.0, BUN 4 and creatinine 0.51 AST 145, ALT 74 UDS is positive for benzodiazepines Serum alcohol level is 386 on admission Patient was continued on IV hydration and PPI twice daily. Continued with thiamine and monitor vitamins. Monitored for alcohol withdrawal symptoms. Continue with home medications and psychiatry was consulted. Seen by psychiatry. Patient was recommended to follow-up as an outpatient. Currently patient is not suicidal. Patient otherwise did improve symptomatically and awake alert oriented x3 now. Closely monitor for withdrawal symptoms. Patient was counseled extensively.. PHYSICAL EXAMINATION: Patient is lying in the bed comfortably, no acute distress, awake alert and oriented.. HEENT: Normocephalic. Neck is supple. Pupils reactive. Nostrils clear. Oral cavity is moist. Ears reveal no drainage. Neck reveals no JVD, carotid bruits, or thyromegaly. CHEST EXAMINATION: Trachea is central. Symmetrical expansion. Lung gay clear to auscultation and percussion. CARDIAC: Normal S1, S2 with no gallops. No murmurs ABDOMEN: Soft. Bowel sounds normal. No organomegaly. No abdominal bruits. Extremities: reveal no edema. No clubbing or cyanosis Neurologically awake, alert, oriented x3 with well-coordinated movements. No focal deficits noted Skin: No rash or skin lesions. Psychiatric: Coperative. Nonsuicidal Musculoskeletal: No joint swelling or deformity. Normal range of motion. Discharge vitals reviewed. Patient Condition at Discharge: Fair Plan - Discharge Summary New Discharge Prescriptions: New traZODone HCL [Desyrel] 50 mg PO HS #30 tab Venlafaxine HCl ER [Effexor XR] 225 mg PO DAILY #30 cap.er.24h Pantoprazole [Protonix] 40 mg PO AC-BRKFST #30 tablet. Naltrexone HCl [Revia] 50 mg PO DAILY #30 tab Continue Folic Acid 1 mg PO DAILY Brivaracetam [Briviact] 100 mg PO BID Thiamine [Vitamin B-1] 100 mg PO DAILY #30 tab Ondansetron Odt [Zofran ODT] 4 mg PO DAILY PRN PRN Reason: Nausea hydrOXYzine HCL 25 mg PO TID Discontinued Venlafaxine HCl [Effexor XR] 150 mg PO DAILY LORazepam [Ativan] 1 mg PO TID 5 Days #15 tab Discharge Medication List Brivaracetam [Briviact] 100 mg PO BID 05/17/20 [History] Folic Acid 1 mg PO DAILY 05/17/20 [History] Thiamine [Vitamin B-1] 100 mg PO DAILY #30 tab 05/24/20 [Rx] Ondansetron Odt [Zofran ODT] 4 mg PO DAILY PRN 05/31/20 [History] hydrOXYzine HCL 25 mg PO TID 05/31/20 [History] Naltrexone HCl [Revia] 50 mg PO DAILY #30 tab 06/01/20 [Rx] Pantoprazole [Protonix] 40 mg PO AC-BRKFST #30 tablet. 06/01/20 [Rx] Venlafaxine HCl ER [Effexor XR] 225 mg PO DAILY #30 cap.er.24h 06/01/20 [Rx] traZODone HCL [Desyrel] 50 mg PO HS #30 tab 06/01/20 [Rx] Follow up Appointment(s)/Referral(s): Luis Mcgee MD [Primary Care Provider] - 1-2 days Patient Instructions/Handouts: Alcohol Intoxication (DC) Discharge Disposition: HOME SELF-CARE
== END 2020-06-01 14:39 | disposition home or self-care (01) ==
LOC: EC 21:12 → 4SSUR 22:59 → INTOOBSV 06-01 09:59 → OBSVTOIN 06-01 09:59 → UNDODISIN 06-01 14:39
PROVIDERS: ADMIT Hospitalist; ATTEND Hospitalist
DX: F10.239 Alcohol dependence with withdrawal, unspecified (principal); F10.229 Alcohol dependence with intoxication, unspecified; Y90.8 Blood alcohol level of 240 mg/100 ml or more; R10.13 Epigastric pain; R45.851 Suicidal ideations; Z87.19 Personal history of other diseases of the digestive system; Z87.891 Personal history of nicotine dependence; R56.9 Unspecified convulsions; G47.00 Insomnia, unspecified; I10 Essential (primary) hypertension; F41.9 Anxiety disorder, unspecified; F32.9 Major depressive disorder, single episode, unspecified; W19.XXXA Unspecified fall, initial encounter; Y92.009 Unspecified place in unspecified non-institutional (private) residence as the place of occurrence of the external cause; E66.9 Obesity, unspecified; Z68.28 Body mass index [BMI] 28.0-28.9, adult; Z86.73 Personal history of transient ischemic attack (TIA), and cerebral infarction without residual deficits; Z79.899 Other long term (current) drug therapy; Z56.0 Unemployment, unspecified; S01.511A Laceration without foreign body of lip, initial encounter; R00.0 Tachycardia, unspecified
CPT/HCPCS: 96376 ×2; 96361 ×3; 96374; 96375; 93005 ×2; 96372; 99285; 36415; 80053; 80048; 83690; 83735; 84484; 85025 ×2; 85610; 85730; 80306; 72125; 70450; G0378 ×3; G0480; J2060 ×2; J3411; C9113 ×2; 80320; 96360

== ENCOUNTER 2020-10-23 15:21 | Emergency (ER) | payer OTHER ==
[2020-10-23] MEDS ORDERED: SODIUM CHLORIDE 0.9% 1,000 ML IV ONE (15:46)
[2020-10-23] MEDS ORDERED: SODIUM CHLORIDE 0.9% 1,000 ML IV SCH (16:00)
--- NOTE | 2020-10-23 16:18 | ED ---
URI HPI - General Chief Complaint: Upper Respiratory Infection Stated Complaint: Cough,Congestion,Nausea,SOB Time Seen by Provider: 10/23/20 15:27 Source: patient Mode of arrival: ambulatory Limitations: no limitations - History of Present Illness Initial Comments: 35yo male presenting today for cc of congestion, cough, dyspnea. pt states he is concerned he has covid he admits to nasal congestion, cough at times, and pain with inspiration. he states at times he feels short of breath. denies hemoptysis, leg swelling calf pain, chest pressure, jaw or arm pain. denies hx of PE/DVT Denies fever, since surgery history of cancer he denies any recent immobilization fractures. Patietn appears well nontoxic in no acute distress. - Related Data Home Medications Medication Instructions Recorded Confirmed hydrOXYzine HCL 25 mg PO TID PRN 05/31/20 10/23/20 Brivaracetam [Briviact] 100 mg PO HS 10/23/20 10/23/20 Gabapentin 300 mg PO TID PRN 10/23/20 10/23/20 Multivitamins, Thera [Multivitamin 1 tab PO DAILY 10/23/20 10/23/20 (formulary)] Venlafaxine HCl [Effexor XR] 150 mg PO DAILY 10/23/20 10/23/20 Previous Rx's Medication Instructions Recorded traZODone HCL [Desyrel] 50 mg PO HS #30 tab 06/01/20 Azithromycin [Zithromax Z-pack (6 0 mg PO DIRECTED #6 tab 10/23/20 tabs)] Allergies Allergy/AdvReac Type Severity Reaction Status Date / Time No Known Allergies Allergy Verified 10/23/20 17:11 Review of Systems ROS Statement: Those systems with pertinent positive or pertinent negative responses have been documented in the HPI. ROS Other: All systems not noted in ROS Statement are negative. 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 History of Any Multi-Drug Resistant Organisms: None Reported Past Surgical History: Orthopedic Surgery Additional Past Surgical History / Comment(s): Right ankle Past Anesthesia/Blood Transfusion Reactions: No Reported Reaction Past Psychological History: Anxiety Smoking Status: Former smoker Past Alcohol Use History: Daily, Heavy Past Drug Use History: Marijuana - Past Family History Father History Unknown: Yes General Exam - General Exam Comments Initial Comments: General: The patient is awake and alert, in no distress, and does not appear acutely ill. Eye: +3 mm pupils are equal, round and reactive to light, extra-ocular movements are intact. No nystagmus. There is normal conjunctiva bilaterally. No signs of icterus. No photophobia Ears, nose, mouth and throat: There are moist mucous membranes and no oral lesions. No tenderness to palpation of the mastoid. No anterior cervical lymphadenopathy. Rhinorrhea, clear and bilateral nares. N Neck: The neck is supple, there is no tenderness or JVD. No nuchal rigidity negative Brudzinski and Kernig Cardiovascular: There is a regular rate and rhythm. No murmur, rub or gallop is appreciated. Respiratory: Lungs are clear to auscultation, respirations are non-labored, breath sounds are equal. No wheezes, stridor, rales, or rhonchi. No retractions or abdominal breathing. Gastrointestinal: Soft, non-distended, non-tender abdomen without masses or organomegaly noted. There is no rebound or guarding present. Bowel sounds are unremarkable. Musculoskeletal: Normal ROM, no tenderness. Strength 5/5. Sensation intact. Radial pulses equal bilaterally 2+. Neurological: A&O x 3. CN II-XII intact grossly, There are no obvious motor or sensory deficits. Coordination appears grossly intact. Speech appears normal, no muffling. Skin: Skin is warm and dry and no rashes or lesions are noted. No extremity edema Psychiatric: Cooperative Limitations: no limitations Course Vital Signs 10/23/20 10/23/20 10/23/20 15:24 15:55 17:25 Temperature 99.0 F Pulse Rate 117 H 91 82 Respiratory 18 20 18 Rate Blood Pressure 128/80 128/91 O2 Sat by Pulse 98 93 L 99 Oximetry 10/23/20 17:37 Temperature 98 F Pulse Rate 78 Respiratory 16 Rate Blood Pressure 128/78 O2 Sat by Pulse 98 Oximetry Medical Decision Making - Medical Decision Making Mild leukocytosis. Dimer negative troponin negative. Patient has minimal risk factors for cardiopulmonary embolism I do not have high suspicion. Patient denies current chest discomfort. Patient was concerned of Covid 19 infection rapid test negative however did discuss the possibility of false-negative and recommend self quarantine for 7 days and until symptom-free. pt cxr did have a small area of atelectasis which I feel can be possible developing infiltrate. Patient was initiated on azithromycin for community acquired pneumonia. pt agreeable to discharge and care plan. patient discharged appearing well after discussing case with Marysol Alcazar.\ Ventricular rate 94 bpm, VA interval 162 ms, QRS duration 84 ms, QT/QTC 330/412 ms. - Lab Data Result diagrams: 10/23/20 16:02 10/23/20 16:02 Lab Results 10/23/20 10/23/20 10/23/20 Range/Units 16:02 16:02 16:02 WBC 12.2 H (3.8-10.6) k/uL RBC 5.01 (4.30-5.90) m/uL Hgb 14.8 (13.0-17.5) gm/dL Hct 44.8 (39.0-53.0) % MCV 89.5 (80.0-100.0) fL MCH 29.5 (25.0-35.0) pg MCHC 33.0 (31.0-37.0) g/dL RDW 13.0 (11.5-15.5) % Plt Count 228 (150-450) k/uL MPV 7.8 Neutrophils % 73 % Lymphocytes % 20 % Monocytes % 4 % Eosinophils % 2 % Basophils % 0 % Neutrophils # 8.8 H (1.3-7.7) k/uL Lymphocytes # 2.5 (1.0-4.8) k/uL Monocytes # 0.5 (0-1.0) k/uL Eosinophils # 0.3 (0-0.7) k/uL Basophils # 0.0 (0-0.2) k/uL D-Dimer 0.19 (<0.60) mg/L FEU Sodium 135 L (137-145) mmol/L Potassium 5.5 H (3.5-5.1) mmol/L Chloride 105 (98-107) mmol/L Carbon Dioxide 26 (22-30) mmol/L Anion Gap 4 mmol/L BUN 10 (9-20) mg/dL Creatinine 0.65 L (0.66-1.25) mg/dL Est GFR (CKD-EPI)AfAm >90 (>60 ml/min/1.73 sqM) Est GFR (CKD-EPI)NonAf >90 (>60 ml/min/1.73 sqM) Glucose 107 H (74-99) mg/dL Calcium 9.7 (8.4-10.2) mg/dL Total Bilirubin 0.9 (0.2-1.3) mg/dL AST 34 (17-59) U/L ALT 18 (4-49) U/L Alkaline Phosphatase 48 (38-126) U/L Troponin I (0.000-0.034) ng/mL Total Protein 7.5 (6.3-8.2) g/dL Albumin 4.4 (3.5-5.0) g/dL Coronavirus (PCR) (Not Detectd) 10/23/20 10/23/20 Range/Units 16:02 16:02 WBC (3.8-10.6) k/uL RBC (4.30-5.90) m/uL Hgb (13.0-17.5) gm/dL Hct (39.0-53.0) % MCV (80.0-100.0) fL MCH (25.0-35.0) pg MCHC (31.0-37.0) g/dL RDW (11.5-15.5) % Plt Count (150-450) k/uL MPV Neutrophils % % Lymphocytes % % Monocytes % % Eosinophils % % Basophils % % Neutrophils # (1.3-7.7) k/uL Lymphocytes # (1.0-4.8) k/uL Monocytes # (0-1.0) k/uL Eosinophils # (0-0.7) k/uL Basophils # (0-0.2) k/uL D-Dimer (<0.60) mg/L FEU Sodium (137-145) mmol/L Potassium (3.5-5.1) mmol/L Chloride (98-107) mmol/L Carbon Dioxide (22-30) mmol/L Anion Gap mmol/L BUN (9-20) mg/dL Creatinine (0.66-1.25) mg/dL Est GFR (CKD-EPI)AfAm (>60 ml/min/1.73 sqM) Est GFR (CKD-EPI)NonAf (>60 ml/min/1.73 sqM) Glucose (74-99) mg/dL Calcium (8.4-10.2) mg/dL Total Bilirubin (0.2-1.3) mg/dL AST (17-59) U/L ALT (4-49) U/L Alkaline Phosphatase (38-126) U/L Troponin I <0.012 (0.000-0.034) ng/mL Total Protein (6.3-8.2) g/dL Albumin (3.5-5.0) g/dL Coronavirus (PCR) Not Detected (Not Detectd) Disposition Clinical Impression: Cough, Congestion of nasal sinus, Shortness of breath, Lung infiltrate Disposition: HOME SELF-CARE Condition: Good Instructions (If sedation given, give patient instructions): Pneumonia (ED) Additional Instructions: Please use medication as discussed. Please follow-up with family doctor in the next 2 days. Please return to emergency room if the symptoms increase or worsen or for any other concerns. Prescriptions: Azithromycin [Zithromax Z-pack (6 tabs)] 0 mg PO DIRECTED #6 tab Is patient prescribed a controlled substance at d/c from ED?: No Referrals: Luis Mcgee MD [Primary Care Provider] - 1-2 days Time of Disposition: 17:09
--- NOTE | 2020-10-23 16:21 | XR ---
EXAMINATION TYPE: XR chest 2V DATE OF EXAM: 10/23/2020 COMPARISON: NONE HISTORY: Cough and congestion TECHNIQUE: 2 views FINDINGS: There is some minimal linear infiltrate and atelectasis left lung base. The other lung fiel ds are clear. Heart and mediastinum are normal. There is no pleural effusion. Bony thorax is intact. IMPRESSION: Mild subsegmental atelectasis in linear infiltrate left lung base. Normal heart.
[2020-10-23 16:25] LABS: Basophils % (A) 0 %; Eosinophils # (A) 0.3 k/uL (0-0.7); Eosinophils % (A) 2 %; HCT 44.8 % (39.0-53.0); HGB 14.8 gm/dL (13.0-17.5); Lymphocytes # (A) 2.5 k/uL (1.0-4.8); Lymphocytes % (A) 20 %; MCH 29.5 pg (25.0-35.0); MCV 89.5 fL (80.0-100.0); Mean Platelet Volume 7.8; Monocytes # (A) 0.5 k/uL (0-1.0); Monocytes % (A) 4 %; Neutrophils # (A) 8.8 k/uL (1.3-7.7); Neutrophils % (A) 73 %; Platelet Count 228 k/uL (150-450); RBC 5.01 m/uL (4.30-5.90); WBC 12.2 k/uL (3.8-10.6)
[2020-10-23 16:49] LABS: ALT 18 U/L (4-49); AST 34 U/L (17-59); African American GFR (CKD) >90 (>60 ml/min/1.73 sqM); Albumin 4.4 g/dL (3.5-5.0); Alkaline Phosphatase 48 U/L (38-126); Anion Gap 4 mmol/L; Blood Urea Nitrogen 10 mg/dL (9-20); Calcium 9.7 mg/dL (8.4-10.2); Carbon Dioxide 26 mmol/L (22-30); Chloride 105 mmol/L (98-107); Glucose 107 mg/dL (74-99); Non-African American GFR(CKD) >90 (>60 ml/min/1.73 sqM); Sodium 135 mmol/L (137-145); Total Bilirubin 0.9 mg/dL (0.2-1.3); Total Protein 7.5 g/dL (6.3-8.2)
[2020-10-23 16:51] LABS: Potassium 5.5 mmol/L (3.5-5.1)
[2020-10-23] MEDS ORDERED: AZITHROMYCIN 500 MG TAB PO STA (17:09)
[2020-10-23 17:39] VITALS: BP 128/78; PULSE 78; RESP 16; TEMP 98
== END 2020-10-23 17:37 | disposition home or self-care (01) ==
LOC: EC 15:21
DX: R05 Cough (principal); R06.02 Shortness of breath; R91.8 Other nonspecific abnormal finding of lung field; R09.81 Nasal congestion; I10 Essential (primary) hypertension; F41.9 Anxiety disorder, unspecified; Z20.828 Contact with and (suspected) exposure to other viral communicable diseases; Z79.899 Other long term (current) drug therapy; Z87.891 Personal history of nicotine dependence
CPT/HCPCS: 36415; 71046; 80053; 84484; 85025; 85379; 87635; 93005; 96360; 99285

== ENCOUNTER 2021-01-29 00:38 | Inpatient (IN) | payer MEDICAID, OTHER ==
[2021-01-29] MEDS ORDERED: SODIUM CHLORIDE 0.9% 1,000 ML IV STA (00:57)
--- NOTE | 2021-01-29 01:16 | ED ---
Overdose HPI - General Chief Complaint: Psychiatric Symptoms Stated Complaint: Mental Health Time Seen by Provider: 01/29/21 00:56 Source: patient Mode of arrival: ambulatory Limitations: no limitations - History of Present Illness MD Complaint: intentional overdose -: hour(s) Intent: suicide attempt How Overdose Was Discovered: family/friend present at time, called 911 Context: Intentional Overdose: other Associated Symptoms: depression - Related Data Home Medications Medication Instructions Recorded Confirmed hydrOXYzine HCL 25 mg PO TID PRN 05/31/20 01/30/21 Brivaracetam [Briviact] 100 mg PO HS 10/23/20 01/30/21 Gabapentin 300 mg PO TID PRN 10/23/20 01/30/21 Previous Rx's Medication Instructions Recorded traZODone HCL [Desyrel] 50 mg PO HS #30 tab 06/01/20 Allergies Allergy/AdvReac Type Severity Reaction Status Date / Time No Known Allergies Allergy Verified 01/30/21 15:20 Review of Systems ROS Statement: Those systems with pertinent positive or pertinent negative responses have been documented in the HPI. ROS Other: All systems not noted in ROS Statement are negative. Constitutional: Denies: fever, chills Respiratory: Denies: cough, dyspnea Cardiovascular: Denies: chest pain, palpitations, edema Gastrointestinal: Denies: abdominal pain, nausea, vomiting, diarrhea Genitourinary: Denies: dysuria, hematuria Skin: Denies: rash Neurological: Reports: paresthesias. Denies: headache, weakness Psychiatric: Reports: depression, suicidal thoughts. Denies: auditory hallucinations, visual hallucinations, homicidal thoughts 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 History of Any Multi-Drug Resistant Organisms: None Reported Past Surgical History: Orthopedic Surgery Additional Past Surgical History / Comment(s): Right ankle Past Anesthesia/Blood Transfusion Reactions: No Reported Reaction Past Psychological History: Anxiety Smoking Status: Former smoker Past Alcohol Use History: Daily, Heavy Past Drug Use History: Marijuana - Past Family History Father History Unknown: Yes General Exam Limitations: no limitations General appearance: alert, in no apparent distress Head exam: Present: atraumatic, normocephalic Eye exam: Present: normal appearance. Absent: scleral icterus, conjunctival injection ENT exam: Present: normal oropharynx Respiratory exam: Present: normal lung sounds bilaterally. Absent: respiratory distress, wheezes, rales, rhonchi, stridor Cardiovascular Exam: Present: regular rate, normal rhythm, normal heart sounds. Absent: systolic murmur, diastolic murmur, rubs, gallop GI/Abdominal exam: Present: soft. Absent: distended, tenderness, guarding, rebound, rigid, mass Extremities exam: Present: normal inspection, normal capillary refill. Absent: pedal edema, calf tenderness Back exam: Present: normal inspection. Absent: CVA tenderness (R), CVA tenderness (L) Neurological exam: Present: alert Psychiatric exam: Present: depressed, suicidal ideation. Absent: anxious, flat affect, manic, homicidal ideation Skin exam: Present: warm, dry, intact, normal color. Absent: rash Course Vital Signs 01/29/21 01/29/21 00:44 07:47 Temperature 98.8 F Pulse Rate 128 H 80 Respiratory 18 18 Rate Blood Pressure 165/93 115/75 O2 Sat by Pulse 95 93 L Oximetry Medical Decision Making - Lab Data Result diagrams: 01/29/21 01:17 01/29/21 01:17 Lab Results 01/29/21 01/29/21 01/29/21 Range/Units 01:17 01:17 01:17 WBC 7.7 (3.8-10.6) k/uL RBC 5.11 (4.30-5.90) m/uL Hgb 16.0 (13.0-17.5) gm/dL Hct 44.9 (39.0-53.0) % MCV 87.9 (80.0-100.0) fL MCH 31.4 (25.0-35.0) pg MCHC 35.7 (31.0-37.0) g/dL RDW 13.4 (11.5-15.5) % Plt Count 241 (150-450) k/uL MPV 7.6 Neutrophils % 62 % Lymphocytes % 29 % Monocytes % 6 % Eosinophils % 3 % Basophils % 0 % Neutrophils # 4.8 (1.3-7.7) k/uL Lymphocytes # 2.2 (1.0-4.8) k/uL Monocytes # 0.4 (0-1.0) k/uL Eosinophils # 0.2 (0-0.7) k/uL Basophils # 0.0 (0-0.2) k/uL Sodium 135 L (137-145) mmol/L Potassium 4.0 (3.5-5.1) mmol/L Chloride 103 (98-107) mmol/L Carbon Dioxide 24 (22-30) mmol/L Anion Gap 8 mmol/L BUN 9 (9-20) mg/dL Creatinine 0.75 (0.66-1.25) mg/dL Est GFR (CKD-EPI)AfAm >90 (>60 ml/min/1.73 sqM) Est GFR (CKD-EPI)NonAf >90 (>60 ml/min/1.73 sqM) Glucose 108 H (74-99) mg/dL Estimated Ave Glu mg/dL Hemoglobin A1c (4.0-6.0) % Calcium 9.8 (8.4-10.2) mg/dL Total Bilirubin 0.7 (0.2-1.3) mg/dL AST 28 (17-59) U/L ALT 17 (4-49) U/L Alkaline Phosphatase 83 (38-126) U/L Total Protein 7.5 (6.3-8.2) g/dL Albumin 4.6 (3.5-5.0) g/dL Triglycerides (<150) mg/dL Cholesterol (<200) mg/dL LDL Cholesterol, Calc (0-99) mg/dL HDL Cholesterol (40-60) mg/dL TSH (0.465-4.680) mIU/L Urine Color Urine Appearance (Clear) Urine pH (5.0-8.0) Ur Specific [place] (1.001-1.035) Urine Protein (Negative) Urine Glucose (UA) (Negative) Urine Ketones (Negative) Urine Blood (Negative) Urine Nitrite (Negative) Urine Bilirubin (Negative) Urine Urobilinogen (<2.0) mg/dL Ur Leukocyte Esterase (Negative) Salicylates <1.0 mg/dL Urine Opiates Screen Not Detected (NotDetected) Ur Oxycodone Screen Not Detected (NotDetected) Urine Methadone Screen Not Detected (NotDetected) Ur Propoxyphene Screen Not Detected (NotDetected) Acetaminophen <10.0 ug/mL Ur Barbiturates Screen Not Detected (NotDetected) U Tricyclic Antidepress Not Detected (NotDetected) Ur Phencyclidine Scrn Not Detected (NotDetected) Ur Amphetamines Screen Not Detected (NotDetected) U Methamphetamines Scrn Not Detected (NotDetected) U Benzodiazepines Scrn Not Detected (NotDetected) Urine Cocaine Screen Not Detected (NotDetected) U Marijuana (THC) Screen Detected H (NotDetected) Serum Alcohol <10 mg/dL 01/29/21 01/29/21 01/29/21 Range/Units 01:17 01:17 01:17 WBC (3.8-10.6) k/uL RBC (4.30-5.90) m/uL Hgb (13.0-17.5) gm/dL Hct (39.0-53.0) % MCV (80.0-100.0) fL MCH (25.0-35.0) pg MCHC (31.0-37.0) g/dL RDW (11.5-15.5) % Plt Count (150-450) k/uL MPV Neutrophils % % Lymphocytes % % Monocytes % % Eosinophils % % Basophils % % Neutrophils # (1.3-7.7) k/uL Lymphocytes # (1.0-4.8) k/uL Monocytes # (0-1.0) k/uL Eosinophils # (0-0.7) k/uL Basophils # (0-0.2) k/uL Sodium (137-145) mmol/L Potassium (3.5-5.1) mmol/L Chloride (98-107) mmol/L Carbon Dioxide (22-30) mmol/L Anion Gap mmol/L BUN (9-20) mg/dL Creatinine (0.66-1.25) mg/dL Est GFR (CKD-EPI)AfAm (>60 ml/min/1.73 sqM) Est GFR (CKD-EPI)NonAf (>60 ml/min/1.73 sqM) Glucose (74-99) mg/dL Estimated Ave Glu mg/dL 117 Hemoglobin A1c 5.7 (4.0-6.0) % Calcium (8.4-10.2) mg/dL Total Bilirubin (0.2-1.3) mg/dL AST (17-59) U/L ALT (4-49) U/L Alkaline Phosphatase (38-126) U/L Total Protein (6.3-8.2) g/dL Albumin (3.5-5.0) g/dL Triglycerides 145 (<150) mg/dL Cholesterol 183 (<200) mg/dL LDL Cholesterol, Calc 115 H (0-99) mg/dL HDL Cholesterol 39 L (40-60) mg/dL TSH 2.620 (0.465-4.680) mIU/L Urine Color Light Yellow Urine Appearance Clear (Clear) Urine pH 6.0 (5.0-8.0) Ur Specific [place] 1.004 (1.001-1.035) Urine Protein Negative (Negative) Urine Glucose (UA) Negative (Negative) Urine Ketones Negative (Negative) Urine Blood Negative (Negative) Urine Nitrite Negative (Negative) Urine Bilirubin Negative (Negative) Urine Urobilinogen <2.0 (<2.0) mg/dL Ur Leukocyte Esterase Negative (Negative) Salicylates mg/dL Urine Opiates Screen (NotDetected) Ur Oxycodone Screen (NotDetected) Urine Methadone Screen (NotDetected) Ur Propoxyphene Screen (NotDetected) Acetaminophen ug/mL Ur Barbiturates Screen (NotDetected) U Tricyclic Antidepress (NotDetected) Ur Phencyclidine Scrn (NotDetected) Ur Amphetamines Screen (NotDetected) U Methamphetamines Scrn (NotDetected) U Benzodiazepines Scrn (NotDetected) Urine Cocaine Screen (NotDetected) U Marijuana (THC) Screen (NotDetected) Serum Alcohol mg/dL - EKG Data -: EKG Interpreted by Me EKG shows normal: sinus rhythm, axis (Normal), intervals (Normal), QRS complexes (Incomplete right bundle branch block), ST-T waves (Normal) Rate: normal (Rate 97 bpm) Disposition Clinical Impression: Mood disorder, Suicidal behavior, Overdose Disposition: ADMITTED IP TO THIS [facility] Condition: Fair Is patient prescribed a controlled substance at d/c from ED?: No
[2021-01-29 01:49] LABS: Basophils % (A) 0 %; Eosinophils # (A) 0.2 k/uL (0-0.7); Eosinophils % (A) 3 %; HCT 44.9 % (39.0-53.0); Lymphocytes # (A) 2.2 k/uL (1.0-4.8); Lymphocytes % (A) 29 %; MCH 31.4 pg (25.0-35.0); MCHC 35.7 g/dL (31.0-37.0); MCV 87.9 fL (80.0-100.0); Mean Platelet Volume 7.6; Monocytes # (A) 0.4 k/uL (0-1.0); Monocytes % (A) 6 %; Neutrophils # (A) 4.8 k/uL (1.3-7.7); Neutrophils % (A) 62 %; Platelet Count 241 k/uL (150-450); RBC 5.11 m/uL (4.30-5.90); RDW 13.4 % (11.5-15.5); WBC 7.7 k/uL (3.8-10.6)
[2021-01-29 02:12] LABS: ALT 17 U/L (4-49); AST 28 U/L (17-59); Acetaminophen <10.0 ug/mL; African American GFR (CKD) >90 (>60 ml/min/1.73 sqM); Albumin 4.6 g/dL (3.5-5.0); Alcohol <10 mg/dL; Alkaline Phosphatase 83 U/L (38-126); Anion Gap 8 mmol/L; Blood Urea Nitrogen 9 mg/dL (9-20); Calcium 9.8 mg/dL (8.4-10.2); Carbon Dioxide 24 mmol/L (22-30); Chloride 103 mmol/L (98-107); Glucose 108 mg/dL (74-99); Non-African American GFR(CKD) >90 (>60 ml/min/1.73 sqM); Salicylate <1.0 mg/dL; Sodium 135 mmol/L (137-145); Total Bilirubin 0.7 mg/dL (0.2-1.3); Total Protein 7.5 g/dL (6.3-8.2)
[2021-01-29 02:28] LABS: Amphetamine Screen,Urine Not Detected (NotDetected); Barbiturate Screen,Urine Not Detected (NotDetected); Benzodiazepines Screen,Urine Not Detected (NotDetected); Cocaine Screen,Urine Not Detected (NotDetected); Methadone Screen, Urine Not Detected (NotDetected); Opiate Screen,Urine Not Detected (NotDetected); Oxycodone Screen, Urine Not Detected (NotDetected); Phencyclidine Screen,Urine Not Detected (NotDetected); Tricyclic Antidepressant,Urine Not Detected (NotDetected); Urn Cannabinoid Scrn Detected (NotDetected)
[2021-01-29] MEDS ORDERED: ACETAMINOPHEN TAB 325 MG TAB PO PRN (07:21)
[2021-01-29] MEDS ORDERED: MAGNESIUM HYDROXIDE 2,400 MG/10 ML CUP PO PRN (07:21)
[2021-01-29] MEDS ORDERED: hydrOXYzine HCL 25 MG TAB PO PRN (07:26)
[2021-01-29] MEDS ORDERED: GABAPENTIN 300 MG CAP PO PRN (07:26)
[2021-01-29] MEDS ORDERED: LORazepam 2 MG/ML INJ IM PRN (07:29)
[2021-01-29] MEDS ORDERED: LORazepam 1 MG TAB PO PRN (07:29)
[2021-01-29 07:31] LABS: Appearance,Urine Clear (Clear); Bilirubin,Urine Negative (Negative); Blood,Urine Negative (Negative); Color,Urine Light Yellow; Glucose,Urine (UA) Negative (Negative); Ketones,Urine Negative (Negative); Leukocyte Esterase,Urine Negative (Negative); Nitrite,Urine Negative (Negative); Protein,Urine Negative (Negative); Urobilinogen,Urine <2.0 mg/dL (<2.0)
[2021-01-29] MEDS ORDERED: HALOPERIDOL LACTATE 5 MG/ML 1 ML VIAL IM PRN (07:31)
[2021-01-29] MEDS ORDERED: haloperidoL 5 MG TAB PO PRN (07:31)
[2021-01-29 08:50] LABS: Specific Gravity,Urine 1.004 (1.001-1.035)
[2021-01-29] MEDS ORDERED: NICOTINE 14MG/24HR PATCH TRANSDERM SCH (09:00)
[2021-01-29 09:47] VITALS: RESP 16
--- NOTE | 2021-01-29 12:39 | P.HP ---
Psychiatric H&P - . H&P Date: 01/29/21 History & Physical: IDENTIFYING DATA: The patient is a 35-year-old single male admitted psychiatric unit voluntarily. HISTORY OF PRESENT ILLNESS: EMS brought him to the emergency room following an intentional overdose of prescription medications including trazodone, gabapentin and hydroxyzine. He was evaluated in the emergency room and determine to not need inpatient medical care. He told the EPS nurse in the ER that the overdose was a "spontaneous thing". During our interview he described worsening depression over the weeks prior to the admission. He described periods of worsening mood but his mood never returning to his normal state. He date that the changes mood begining after a appointment with his orthopedic surgeon where he received a nerve block to his right foot. He described symptoms of depression including feelings of hopelessness, helplessness and worthlessness. He has difficulty falling asleep and remaining asleep. He ascribed anhedonia, anergy impairment in concentration and attention. He denied that he had been contemplating suicide or self-harm until the day of the overdose. He talked about having an epiphany we realize that he could end his suffering and experienced a sense of relief when too the overdose. After he took the overdose she awoke his father who ordered him to call emergency services. He denied a history of elevated mood or sustained irritability suggestive of lakia or hypomania. He denied such psychotic symptoms such as hallucinations, paranoia or thought disturbances. He struggles with chronic feelings of anxiety and described intrusive recollections of the accident that caused the fracture of his foot. He denied use of other drugs with the exception of "occasional" marijuana. PAST PSYCHIATRIC HISTORY: He has no prior psychiatric hospitalizations. He is never met with a psychiatrist. His only met with a therapist as part of his substance abuse treatment.He denied prior suicide attempts or gestures. He has a history of an alcohol use disorder and has been abstinent from alcohol since May 2020 following his last substance abuse treatment episodes. He [facility] until approximately August 2020 for the treatment of anxiety, chronic pain from his right foot injury and his chronic alcohol use. He stopped meeting with a therapist after clinic transition from [id number]. He was prescribed antidepressants in rehab but did not continue the medications after discharge. He talked about not wanting to take medication "when I was drinking." PAST MEDICAL HISTORY: He sustained multiple fractures to his right foot and leg from a fall when he was 20 years old. He is had multiple surgeries and multiple interventions for pain. He stated that his neurologist recently tapered him off of Neurontin. He currently denies pain but talks about a discomfort in his foot. He also has a history of seizures and has been prescribed (see her medications since September 2019. His last seizure was in September 2019. ALLERGIES: NO KNOWN DRUG ALLERGIES SUBSTANCE USE HISTORY: He has a history of an alcohol use disorder. He began drinking after the injury accident. He believes that his alcohol use became out of control when he was 26 years old. He said 3 essential substance abuse treatments; the last was at [facility] in May 2020. As mentioned above he has been abstinent since. He has had medical hospitalizations for alcohol withdrawal and complications from alcohol withdrawal. He has presented to the ED with blood alcohol levels as high as 386. FAMILY PSYCHIATRIC/SUBSTANCE USE HISTORY: He has an aunt with a history of a psychotic disorder. His father received mental health services after his divorce. LEGAL HISTORY: He had one DUI in multiple citations for possession of alcohol as a minor SOCIAL HISTORY: His born and raised in [place]. His parents when he was 9 years old. He has 2 sisters and 1 brother. He is currently unemployed and has no income. He lives with his father. He has applied for Social Security disability. He last worked briefly in August 2020 but was unable to continue working because of his foot. He is single and has no children. He graduated from high school. MENTAL STATUS EXAM: He presented as a casually groomed moderate obese 35-year-old male who was pleasant on approach. He made eye contact and attended the interview. He had tattoos on his left hand but no prominent physical abnormalities. He had a depressed facial expression. His gait was slow and white case. He had psychomotor retardation but no abnormal involuntary movements. His speech was spontaneous with decreased rate and rhythm. His affect was depressed and not reactive. He denied current suicidal ideation or wishes. He denied homicidal ideation. He expressed feelings of hopelessness, helplessness and worthlessness. He did not express ideas reference, paranoid ideation or delusions. His thinking was concrete and associations were coherent, logical and goal directed. He denied hallucinations did not appear to responding to internal stimuli. Global impression of intellect is average. He is aware of illness and need for treatment. STRENGTHS: Stable housing, supportive family, past engagement with mental health services, sustained period of sobriety WEAKNESSES: History of severe alcohol use disorder, lack of income, lack of employment, chronic physical problems IMPRESSION: His 35-year-old single male with a history of an alcohol use disorder. [facility] following an intentional [place] overdose of prescription medications. He described increasing depression over the 2 weeks prior to admission leading up to the suicide attempt. He said a long history of alcohol use problems with multiple hospitalizations and rehabilitation episodes. However, he is spent abstinent for the last 6 months. He has signs and symptoms of major depressive disorder. He is also struggling with chronic pain as result of a accident. He should she inpatient basis with combination of psychopharmacology and multimodal therapy. PRINCIPLE DIAGNOSIS: Major depressive disorder severe without psychotic features, alcohol use disorder severe in early remission, chronic pain disorder, rule out PTSD, seizure disorder RECOMMENDATION: Admitted to the psychiatric unit voluntarily. Safety precautions. Consult medicine for initial physical exam and medical history. home mission worker completed initial psychosocial assessment coordinate discharge and aftercare. Discontinue gabapentin (patient stated that his neurologist taper it and discontinue the medication as an outpatient). He knew trazodone 100 mg at bedtime. Begin a trial of Cymbalta 20 mg daily and titrated according to clinical response and tolerance. Mratin valencia bring in his prescription of Briviact 100 mg at bedtime. Encourage participation in therapeutic groups and activities. Evaluate clinical status response to treatment daily basis. Allergies Allergy/AdvReac Type Severity Reaction Status Date / Time No Known Allergies Allergy Verified 01/29/21 09:42 Vital Signs Temp 97.8 F 01/29/21 10:19 Pulse 76 01/29/21 09:46 Resp 16 01/29/21 09:46 BP 118/87 01/29/21 09:46 Pulse Ox 93 L 01/29/21 07:47 Intake & Output 01/28/21 01/29/21 01/29/21 18:59 06:59 18:59 Weight 99.79 kg 101.151 kg Laboratory Last Values WBC 7.7 k/uL (3.8-10.6) 01/29/21 01:17 RBC 5.11 m/uL (4.30-5.90) 01/29/21 01:17 Hgb 16.0 gm/dL (13.0-17.5) 01/29/21 01:17 Hct 44.9 % (39.0-53.0) 01/29/21 01:17 MCV 87.9 fL (80.0-100.0) 01/29/21 01:17 MCH 31.4 pg (25.0-35.0) 01/29/21 01:17 MCHC 35.7 g/dL (31.0-37.0) 01/29/21 01:17 RDW 13.4 % (11.5-15.5) 01/29/21 01:17 Plt Count 241 k/uL (150-450) 01/29/21 01:17 MPV 7.6 01/29/21 01:17 Neutrophils % 62 % 01/29/21 01:17 Lymphocytes % 29 % 01/29/21 01:17 Monocytes % 6 % 01/29/21 01:17 Eosinophils % 3 % 01/29/21 01:17 Basophils % 0 % 01/29/21 01:17 Neutrophils # 4.8 k/uL (1.3-7.7) 01/29/21 01:17 Lymphocytes # 2.2 k/uL (1.0-4.8) 01/29/21 01:17 Monocytes # 0.4 k/uL (0-1.0) 01/29/21 01:17 Eosinophils # 0.2 k/uL (0-0.7) 01/29/21 01:17 Basophils # 0.0 k/uL (0-0.2) 01/29/21 01:17 Sodium 135 mmol/L (137-145) L 01/29/21 01:17 Potassium 4.0 mmol/L (3.5-5.1) 01/29/21 01:17 Chloride 103 mmol/L (98-107) 01/29/21 01:17 Carbon Dioxide 24 mmol/L (22-30) 01/29/21 01:17 Anion Gap 8 mmol/L 01/29/21 01:17 BUN 9 mg/dL (9-20) 01/29/21 01:17 Creatinine 0.75 mg/dL (0.66-1.25) 01/29/21 01:17 Est GFR (CKD-EPI)AfAm >90 (>60 ml/min/1.73 sqM) 01/29/21 01:17 Est GFR (CKD-EPI)NonAf >90 (>60 ml/min/1.73 sqM) 01/29/21 01:17 Glucose 108 mg/dL (74-99) H 01/29/21 01:17 Calcium 9.8 mg/dL (8.4-10.2) 01/29/21 01:17 Total Bilirubin 0.7 mg/dL (0.2-1.3) 01/29/21 01:17 AST 28 U/L (17-59) 01/29/21 01:17 ALT 17 U/L (4-49) 01/29/21 01:17 Alkaline Phosphatase 83 U/L (38-126) 01/29/21 01:17 Total Protein 7.5 g/dL (6.3-8.2) 01/29/21 01:17 Albumin 4.6 g/dL (3.5-5.0) 01/29/21 01:17 Urine Color Light Yellow 01/29/21 01:17 Urine Appearance Clear (Clear) 01/29/21 01:17 Urine pH 6.0 (5.0-8.0) 01/29/21 01:17 Ur Specific [place] 1.004 (1.001-1.035) 01/29/21 01:17 Urine Protein Negative (Negative) 01/29/21 01:17 Urine Glucose (UA) Negative (Negative) 01/29/21 01:17 Urine Ketones Negative (Negative) 01/29/21 01:17 Urine Blood Negative (Negative) 01/29/21 01:17 Urine Nitrite Negative (Negative) 01/29/21 01:17 Urine Bilirubin Negative (Negative) 01/29/21 01:17 Urine Urobilinogen <2.0 mg/dL (<2.0) 01/29/21 01:17 Ur Leukocyte Esterase Negative (Negative) 01/29/21 01:17 Salicylates <1.0 mg/dL 01/29/21 01:17 Urine Opiates Screen Not Detected (NotDetected) 01/29/21 01:17 Ur Oxycodone Screen Not Detected (NotDetected) 01/29/21 01:17 Urine Methadone Screen Not Detected (NotDetected) 01/29/21 01:17 Ur Propoxyphene Screen Not Detected (NotDetected) 01/29/21 01:17 Acetaminophen <10.0 ug/mL 01/29/21 01:17 Ur Barbiturates Screen Not Detected (NotDetected) 01/29/21 01:17 U Tricyclic Antidepress Not Detected (NotDetected) 01/29/21 01:17 Ur Phencyclidine Scrn Not Detected (NotDetected) 01/29/21 01:17 Ur Amphetamines Screen Not Detected (NotDetected) 01/29/21 01:17 U Methamphetamines Scrn Not Detected (NotDetected) 01/29/21 01:17 U Benzodiazepines Scrn Not Detected (NotDetected) 01/29/21 01:17 Urine Cocaine Screen Not Detected (NotDetected) 01/29/21 01:17 U Marijuana (THC) Screen Detected (NotDetected) H 01/29/21 01:17 Serum Alcohol <10 mg/dL 01/29/21 01:17 01/29/21 12:16
[2021-01-29] MEDS: DULoxetine HCL 20 MG CAPSULE.DR PO SCH (14:33)
--- NOTE | 2021-01-29 18:28 | P.CONS ---
History of Present Illness - Reason for Consult Consult date: 01/29/21 Medical management Requesting physician: Jules Falcon - Chief Complaint Overdose - History of Present Illness Consultation: This is a 35-year-old patient who follows with Dr. Luis Mcgee. Patient is brought in by the EMS to the ER following intentional overdose of prescription medications that included trazodone, gabapentin, hydroxyzine. Patient had been worsening depression or. No weeks. Patient feeling rather hopeless and worthless. Trouble falling asleep. Often taking the overdose but patient informed his father who called EMS. Patient denies any hallucinations. Patient had alcohol problems in the past and not since May 2020. He is also had chronic pain in the right foot. Patient's had multiple surgeries in fractures to the right foot secondary to fall since he was 20 years of age. Patient had been on Neurontin that was taken out by his neurologist. Patient also has history of seizures last episode being in 2019. Patient's appetite is fair. No cough or shortness of breath. No bowel symptoms. No weight loss Review of systems: GEN.: None EYES: None HEENT: None NECK: None RESPIRATORY: None CARDIOVASCULAR: None GASTROINTESTINAL: None GENITOURINARY: None MUSCULOSKELETAL: Chronic right foot pain LYMPHATICS: None HEMATOLOGICAL: None PSYCHIATRY: Depressed NEUROLOGICAL: None Past medical history to include: Seizures from alcohol withdrawal. Last episode in 2019 history of alcohol use. None since May 2021. Anxiety Social history: Heavy alcohol intake, stopped in 2019. Occasional marijuana. Lives with his father. Not employed Family history: Reviewed, noncontributory to presentation Physical examination: VITAL SIGNS: 98, 76, 16, 118/87, 93% on room air GENERAL: BMI 34.9, laying in bed, tired. EYES: Pupils equal. Conjunctiva normal. HEENT: External appearance of nose and ears normal, oral cavity grossly normal. NECK: JVD not raised; masses not palpable. HEART: First and second heart sounds are normal; no edema. LUNGS: Respiratory rate normal; clear to auscultation. ABDOMEN: Soft, nontender, liver spleen not palpable, no masses palpable. PSYCH: Alert and oriented x3; mood and affect lowl. NEUROLOGICAL: Cranial nerves grossly intact; no facial asymmetry, power and sensation grossly intact. LYMPHATICS: No lymph nodes palpable in the axilla and neck INVESTIGATIONS, reviewed in the clinical context: WBC 7.7 hemoglobin 16 platelets 241 potassium 4 creatinine 0.75 UA negative Urine drug screen positive for marijuana EKG tracing personally reviewed by me--incomplete right bundle-branch block Assessment and plan: -Obesity BMI 34.9 Weight loss measures and follow-up with PCP -Recreational marijuana use Refrain from the same -Chronic right foot pain from prior history of fractures and multiple surgeries Follow-up with pain management team as an outpatient. In the meantime use Tylenol when necessary. -Major depressive disorder without psychotic features Follow with psychiatry -Intentional overdose with trazodone, gabapentin, hydroxyzine. Given the half life this should be washed out by today -Incomplete right bundle branch block. Patient should follow-up with his family doctor upon discharge Thank you Dr. Falcon 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 History of Any Multi-Drug Resistant Organisms: None Reported Past Surgical History: Orthopedic Surgery Additional Past Surgical History / Comment(s): Right ankle Past Anesthesia/Blood Transfusion Reactions: No Reported Reaction Smoking Status: Former smoker - Past Family History Father History Unknown: Yes Medications and Allergies Home Medications Medication Instructions Recorded Confirmed Type hydrOXYzine HCL 25 mg PO TID PRN 05/31/20 01/29/21 History traZODone HCL [Desyrel] 50 mg PO HS #30 tab 06/01/20 01/29/21 Rx Brivaracetam [Briviact] 100 mg PO HS 10/23/20 01/29/21 History Gabapentin 300 mg PO TID PRN 10/23/20 01/29/21 History Allergies Allergy/AdvReac Type Severity Reaction Status Date / Time No Known Allergies Allergy Verified 01/29/21 09:42 Physical Exam Vitals: Vital Signs Temp Pulse Pulse Resp BP BP Pulse Ox 01/29/21 10:19 97.8 F 01/29/21 09:46 98.0 F 76 16 118/87 01/29/21 07:47 80 18 115/75 93 L 01/29/21 00:44 98.8 F 128 H 18 165/93 95 Intake and Output 01/28/21 01/29/21 01/29/21 22:59 06:59 14:59 Other: Weight 99.79 kg 101.151 kg Results CBC & Chem 7: 01/29/21 01:17 04 01:17 Labs: Abnormal Lab Results - Last 24 Hours (Table) 01/29/21 01/29/21 Range/Units 01:17 01:17 Sodium 135 L (137-145) mmol/L Glucose 108 H (74-99) mg/dL U Marijuana (THC) Screen Detected H (NotDetected)
[2021-01-29] MEDS ORDERED: traZODone HCL 50 MG TAB PO SCH (21:00)
[2021-01-29] MEDS: traZODone HCL 100 MG TAB PO SCH (22:14)
[2021-01-30] MEDS: DULoxetine HCL 20 MG CAPSULE.DR PO SCH (08:24)
--- NOTE | 2021-01-30 15:45 | P.PN ---
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 We talked about the circumstances that his admission. He regrets his actions and feels "foolish". "I was thinking about what my actions would've caused my family. ... My sister is just about to have a child. She would've been devastated." He talked about feeling "overwhelmed" and "not seeing the positives" such as recovering from his CVAs and achieving abstinence from alcohol. He feels he has a support of his parents and his siblings. He denied side effects initial dose of duloxetine. He is not been attending therapeutic groups and activities. He slept 7 hours last night. Mental status exam: He presented as a stocky casually groomed 35-year-old male he walks slowly with a wide-based gait. He made eye contact and attended to the interview. He had psychomotor retardation. His speech was spontaneous with decreased rate, volume and rhythm. His affect was depressed. He denied suicidal ideation or wishes. He denied feeling hopeless, helpless or worthless. Did not express ideas reference, paranoid ideation or delusions. His thinking was abstract and associations were coherent, logical and goal directed. He does not appear to be responding to internal stimuli. Assessment: He continues to show signs and symptoms of depression but is denying suicidal ideation, plan or intent. Plan: Patient treatment. Safety precautions. Continue duloxetine 20 mg daily and titrated clinical response and tolerance. Ativan and/or Haldol for anxiety, agitation acute psychosis. Encourage participation in therapeutic groups and activities. Evaluate clinical status and response to treatment on a daily basis.
[2021-01-30 15:47] LABS: Hemoglobin A1C 5.7 % (4.0-6.0)
[2021-01-30] MEDS: traZODone HCL 100 MG TAB PO SCH (21:26)
[2021-01-31 06:19] VITALS: BP 121/81; PULSE 88; TEMP 98.3
[2021-01-31] MEDS: DULoxetine HCL 20 MG CAPSULE.DR PO SCH (08:31)
[2021-01-31] MEDS: MAG HYDROX/AL HYDROX/SIMETH 30 ML CUP PO PRN ×2 (10:08→18:53)
[2021-01-31] MEDS ORDERED: MELATONIN 3 MG TABLET PO PRN (11:54)
--- NOTE | 2021-01-31 12:01 | P.PN ---
Progress Note - Text Progress Note Date: 01/31/21 Interval History: Patient was seen lying in his bed today and was directable and agreeable to mame forrester with instructional writer in the office. Patient spoke about the circumstances for his hospitalization and his overdose. He states he did it "impulsively" and states that he has never done something like that before and claims that he immediately regretted it. He continues to state that she was not trying to kill himself and that he was trying to get sleep with his trazodone. He states that he feels his father's supported and was able to take him to the hospital. He claims that his mood has been improving since being on the unit and claims that his anxiety is also improving. He states that he has been clean from alcohol since May and has been proud of himself for that. He does state that he smokes marijuana at times and cigarettes. He states that he has a lot to live for including his fam arie. He claims that he has not been going to many groups however was encouraged to go to some today. He states that he has a difficult time sleeping in the hospital because his roommate was snoring. At this time patient denies any suicidal or homical ideations, intent or plan. Patient denies any auditory, visual hallucinations and denies any paranoia or delusions. Patient denies any side effects from the medications and has been compliant with meds. Mental Status Exam: General Appearance: Patient appears to be overweight, stated age is alert, directable, and attempts to be cooperative. Fair hygiene and grooming Behavior: Patient is calmly seated without any agitated behavior. Speech: Patient's speech is fluent and nonpressured. Mood/Affect: Mood is improving mildly, affect is congruent and constricted. Suicidality/Homicidality: Patient denies having any suicidal or homicidal ideation intent or plan. Perceptions: Patient denies any visual hallucinations and denies any auditory hallucinations Though content/process: There is no evidence of any delusional thought content and thought process is linear and goal-directed. Rambles at times. More future oriented today. 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 Patient has signed adult voluntary form and medication consent and was placed in patient's chart. -Medications: Increase Cymbalta to 30 mg daily for mood/anxiety/pain. Continue with trazodone 100 mg daily at bedtime for insomnia/mood. Started melatonin 5 mg daily at bedtime when necessary for insomnia. -When necessary Ativan and Haldol for agitation/aggression. -NRT - nicotine patch -SW on board for discharge planning. Encouraged the patient to participate in milieu. family worker to reach out to patient's father and likely try to coordinate for discharge tomorrow.
[2021-01-31] MEDS: traZODone HCL 100 MG TAB PO SCH (21:14)
[2021-02-01] MEDS ORDERED: DULoxetine HCL 30 MG CAPSULE.DR PO SCH (09:00)
[2021-02-01] MEDS: MAG HYDROX/AL HYDROX/SIMETH 30 ML CUP PO PRN (09:30)
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
== END 2021-02-01 12:50 | disposition home or self-care (01) | DRG 885 ==
LOC: EC 00:38 → 3MHU 07:17
PROVIDERS: ADMIT Psychiatry & Neurology Psychiatry; ATTEND Psychiatry & Neurology Psychiatry
DX: F33.2 Major depressive disorder, recurrent severe without psychotic features (principal); K50.90 Crohn's disease, unspecified, without complications; G40.909 Epilepsy, unspecified, not intractable, without status epilepticus; T43.212A Poisoning by selective serotonin and norepinephrine reuptake inhibitors, intentional self-harm, initial encounter; F10.11 Alcohol abuse, in remission; I45.10 Unspecified right bundle-branch block; I10 Essential (primary) hypertension; F12.10 Cannabis abuse, uncomplicated; R45.87 Impulsiveness; F17.210 Nicotine dependence, cigarettes, uncomplicated; Z71.6 Tobacco abuse counseling; G89.29 Other chronic pain; M79.671 Pain in right foot; Y90.0 Blood alcohol level of less than 20 mg/100 ml; E66.9 Obesity, unspecified; Z68.34 Body mass index [BMI] 34.0-34.9, adult; Z79.899 Other long term (current) drug therapy; Z87.39 Personal history of other diseases of the musculoskeletal system and connective tissue; Z91.5 Personal history of self-harm; Z56.0 Unemployment, unspecified; Z86.73 Personal history of transient ischemic attack (TIA), and cerebral infarction without residual deficits; F41.9 Anxiety disorder, unspecified; G47.00 Insomnia, unspecified
CPT/HCPCS: 36415; 80053; 80061; 80143; 80179; 80306; 80320; 81003; 82075; 83036; 84443; 85025; 93005; 96360; 99285

== ENCOUNTER 2021-02-05 10:48 | Emergency (ER) | payer OTHER ==
[2021-02-05 10:56] VITALS: RESP 18; TEMP 98
[2021-02-05] MEDS ORDERED: SODIUM CHLORIDE 0.9% 1,000 ML IV STA (11:55)
[2021-02-05] MEDS ORDERED: FAMOTIDINE 20 MG/2 ML VIAL IV STA (11:59)
[2021-02-05] MEDS ORDERED: METOCLOPRAMIDE 5 MG/ML 2 ML VIAL IVP STA (12:05)
[2021-02-05 12:27] LABS: Basophils # (A) 0.1 k/uL (0-0.2); Basophils % (A) 1 %; Eosinophils # (A) 0.1 k/uL (0-0.7); Eosinophils % (A) 1 %; HGB 15.9 gm/dL (13.0-17.5); Lymphocytes # (A) 1.4 k/uL (1.0-4.8); Lymphocytes % (A) 16 %; MCH 31.4 pg (25.0-35.0); MCHC 36.1 g/dL (31.0-37.0); Mean Platelet Volume 7.7; Monocytes # (A) 0.3 k/uL (0-1.0); Monocytes % (A) 3 %; Neutrophils # (A) 7.1 k/uL (1.3-7.7); Neutrophils % (A) 79 %; Platelet Count 277 k/uL (150-450); RBC 5.06 m/uL (4.30-5.90); RDW 13.2 % (11.5-15.5); WBC 8.9 k/uL (3.8-10.6)
[2021-02-05 12:30] LABS: Appearance,Urine Clear (Clear); Bilirubin,Urine Negative (Negative); Blood,Urine Negative (Negative); Color,Urine Yellow; Glucose,Urine (UA) Negative (Negative); Ketones,Urine 2+ (Negative); Leukocyte Esterase,Urine Negative (Negative); Mucus,Urine Rare /hpf; Nitrite,Urine Negative (Negative); PH, Urine 8.5 (5.0-8.0); Protein,Urine 1+ (Negative); RBC,Urine <1 /hpf (0-5); Specific Gravity,Urine 1.017 (1.001-1.035); Urobilinogen,Urine <2.0 mg/dL (<2.0)
[2021-02-05 12:36] LABS: AST 33 U/L (17-59); African American GFR (CKD) >90 (>60 ml/min/1.73 sqM); Albumin 4.8 g/dL (3.5-5.0); Alkaline Phosphatase 96 U/L (38-126); Amylase 42 U/L (30-110); Anion Gap 15 mmol/L; Blood Urea Nitrogen 9 mg/dL (9-20); Calcium 10.1 mg/dL (8.4-10.2); Carbon Dioxide 22 mmol/L (22-30); Chloride 101 mmol/L (98-107); Glucose 157 mg/dL (74-99); Lipase 54 U/L (23-300); Non-African American GFR(CKD) >90 (>60 ml/min/1.73 sqM); Potassium 3.5 mmol/L (3.5-5.1); Sodium 138 mmol/L (137-145); Total Bilirubin 0.6 mg/dL (0.2-1.3); Total Protein 7.6 g/dL (6.3-8.2)
--- NOTE | 2021-02-05 12:50 | XR ---
EXAMINATION TYPE: XR KUB DATE OF EXAM: 02/05/2021 12:35 PM CLINICAL HISTORY: Abdominal pain and vomiting. TECHNIQUE: Two Upright KUB images of the abdomen are obtained. COMPARISON: Abdominal x-ray May 29, 2020. CT abdomen and pelvis May 22, 2020 there are some possi bility of bowel gas FINDINGS: Some paucity of bowel gas. Scattered gas seen in nondistended bowel loops. Right-sided pelv ic phleboliths redemonstrated. No free air. Lung bases remain clear. Visualized osseous structures ar e intact. IMPRESSION: Overall nonspecific but strongly favor nonobstructive bowel gas pattern.
[2021-02-05 12:54] LABS: ALT 29 U/L (4-49)
--- NOTE | 2021-02-05 13:22 | ED ---
Abdominal Pain HPI - General Chief Complaint: Abdominal Pain Stated Complaint: abd pain Time Seen by Provider: 02/05/21 11:06 Source: patient, RN notes reviewed Mode of arrival: ambulatory Limitations: no limitations - History of Present Illness Initial Comments: 35-year-old white male, alert and oriented 4, presents to the emergency room with abdominal pain started at 7 AM this morning. Patient ambulatory in room states kinking comfortable. Patient states he was at the disability office for an appointment when the pain became worse refraining him to come to the emergency room. Patient states that he has vomited more than 12 times it was clear and return dry heaves. Patient states he's had some diarrhea was watery but cannot tell me how many. Patient denies fever or cough. Describes the pain as epigastric in nature. States yesterday he ate 2 hamburgers but nothing recently. Patient denies hematemesis, hematochezia, or hematuria. has a history of hypertension, Crohn's disease, colitis, alcohol abuse and depression. Patient went to rehab for alcohol abuse in May and has not had a drink since. Patient was hospitalized on January 29 for overdose on his home medications including Cymbalta. Complaint: abdominal pain -: hour(s) (5 hours) Location: diffuse Radiation: none Quality: cramping Consistency: constant Improves With: nothing Context: other (d/c Sunday for overdose on home meds) Associated Symptoms: nausea, vomiting, diarrhea - Related Data Home Medications Medication Instructions Recorded Confirmed Brivaracetam [Briviact] 100 mg PO HS 10/23/20 01/30/21 Previous Rx's Medication Instructions Recorded DULoxetine HCL [Cymbalta] 30 mg PO DAILY 14 Days capsule. 02/01/21 traZODone HCL [Desyrel] 100 mg PO HS PRN 14 Days tab 02/01/21 Allergies Allergy/AdvReac Type Severity Reaction Status Date / Time latex Allergy Unknown Verified 02/05/21 10:50 Review of Systems ROS Statement: Those systems with pertinent positive or pertinent negative responses have been documented in the HPI. ROS Other: All systems not noted in ROS Statement are negative. 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 History of Any Multi-Drug Resistant Organisms: None Reported Past Surgical History: Orthopedic Surgery Additional Past Surgical History / Comment(s): Right ankle Past Anesthesia/Blood Transfusion Reactions: No Reported Reaction Past Psychological History: Anxiety Smoking Status: Former smoker Past Alcohol Use History: Daily, Heavy Past Drug Use History: Marijuana - Past Family History Father History Unknown: Yes General Exam Limitations: no limitations General appearance: alert, in no apparent distress Head exam: Present: atraumatic, normocephalic, normal inspection Eye exam: Present: normal appearance, PERRL, EOMI. Absent: scleral icterus, conjunctival injection, periorbital swelling ENT exam: Present: normal exam, mucous membranes moist Neck exam: Present: normal inspection. Absent: tenderness, meningismus, lymphadenopathy Respiratory exam: Present: normal lung sounds bilaterally. Absent: respiratory distress, wheezes, rales, rhonchi, stridor Cardiovascular Exam: Present: regular rate GI/Abdominal exam: Present: soft, distended, normal bowel sounds. Absent: guarding, rebound, rigid, hernia Rectal exam: Present: deferred Extremities exam: Present: normal inspection, full ROM, normal capillary refill. Absent: tenderness, pedal edema, joint swelling, calf tenderness Back exam: Present: normal inspection, full ROM. Absent: tenderness, CVA tenderness (R), CVA tenderness (L) Neurological exam: Present: alert, oriented X3 Psychiatric exam: Present: normal affect (poor eye contact), normal mood Skin exam: Present: warm, dry, intact, normal color. Absent: rash, cyanosis, diaphoretic Course Vital Signs 02/05/21 10:50 Temperature 98 F Pulse Rate 82 Respiratory 18 Rate Blood Pressure 159/104 O2 Sat by Pulse 96 Oximetry Medical Decision Making - Medical Decision Making KUB x-ray shows nonspecific nonobstructive bowel gas pattern, patient states feeling a little bit better after Reglan and IV fluids and Pepcid. Labs are unremarkable with a normal white count of 8.9. UA shows ketones which patient was given fluid bolus. Patient has appointment with urology scheduled. Patient no longer having any vomiting and feels well enough to go home. Patient states is passing gas. Case discussed with Dr. العلي who is agreeable to this plan. Patient to return if worsening symptoms. - Lab Data Result diagrams: 02/05/21 12:12 02/05/21 12:12 Lab Results 02/05/21 02/05/21 02/05/21 Range/Units 12:12 12:12 12:15 WBC 8.9 (3.8-10.6) k/uL RBC 5.06 (4.30-5.90) m/uL Hgb 15.9 (13.0-17.5) gm/dL Hct 44.0 (39.0-53.0) % MCV 87.0 (80.0-100.0) fL MCH 31.4 (25.0-35.0) pg MCHC 36.1 (31.0-37.0) g/dL RDW 13.2 (11.5-15.5) % Plt Count 277 (150-450) k/uL MPV 7.7 Neutrophils % 79 % Lymphocytes % 16 % Monocytes % 3 % Eosinophils % 1 % Basophils % 1 % Neutrophils # 7.1 (1.3-7.7) k/uL Lymphocytes # 1.4 (1.0-4.8) k/uL Monocytes # 0.3 (0-1.0) k/uL Eosinophils # 0.1 (0-0.7) k/uL Basophils # 0.1 (0-0.2) k/uL Sodium 138 (137-145) mmol/L Potassium 3.5 (3.5-5.1) mmol/L Chloride 101 (98-107) mmol/L Carbon Dioxide 22 (22-30) mmol/L Anion Gap 15 mmol/L BUN 9 (9-20) mg/dL Creatinine 0.80 (0.66-1.25) mg/dL Est GFR (CKD-EPI)AfAm >90 (>60 ml/min/1.73 sqM) Est GFR (CKD-EPI)NonAf >90 (>60 ml/min/1.73 sqM) Glucose 157 H (74-99) mg/dL Calcium 10.1 (8.4-10.2) mg/dL Total Bilirubin 0.6 (0.2-1.3) mg/dL AST 33 (17-59) U/L ALT 29 (4-49) U/L Alkaline Phosphatase 96 (38-126) U/L Total Protein 7.6 (6.3-8.2) g/dL Albumin 4.8 (3.5-5.0) g/dL Amylase 42 (30-110) U/L Lipase 54 (23-300) U/L Urine Color Yellow Urine Appearance Clear (Clear) Urine pH 8.5 H (5.0-8.0) Ur Specific [place] 1.017 (1.001-1.035) Urine Protein 1+ H (Negative) Urine Glucose (UA) Negative (Negative) Urine Ketones 2+ H (Negative) Urine Blood Negative (Negative) Urine Nitrite Negative (Negative) Urine Bilirubin Negative (Negative) Urine Urobilinogen <2.0 (<2.0) mg/dL Ur Leukocyte Esterase Negative (Negative) Urine RBC <1 (0-5) /hpf Urine Mucus Rare H (None) /hpf Disposition Clinical Impression: Vomiting and diarrhea Disposition: HOME SELF-CARE Condition: Good Instructions (If sedation given, give patient instructions): Acute Abdominal Pain (ED), Gas and Bloating (ED) Additional Instructions: Follow-up with your doctor this week keep your urology appointment as already scheduled. Return to emergency room with increasing pain, inability to pass gas, or fever. Is patient prescribed a controlled substance at d/c from ED?: No Referrals: Luis Mcgee MD [Primary Care Provider] - 1-2 days Time of Disposition: 13:36
[2021-02-05 13:45] VITALS: BP 122/84; PULSE 80
== END 2021-02-05 13:40 | disposition home or self-care (01) ==
LOC: EC 10:48 → EEVIPCON 10:48 → EC 13:40
DX: R11.2 Nausea with vomiting, unspecified (principal); R19.7 Diarrhea, unspecified; R10.13 Epigastric pain; I10 Essential (primary) hypertension; F41.9 Anxiety disorder, unspecified; F32.9 Major depressive disorder, single episode, unspecified; Z86.73 Personal history of transient ischemic attack (TIA), and cerebral infarction without residual deficits; Z87.891 Personal history of nicotine dependence; Z79.899 Other long term (current) drug therapy
CPT/HCPCS: 36415; 80053; 82150; 83690; 85025; 81001; 74018; 99284; 96374; 96375; 96361; J2765

== ENCOUNTER 2022-11-07 13:08 | Observation (INO) | payer OTHER ==
[2022-11-07] MEDS ORDERED: SODIUM CHLORIDE 0.9% 1,000 ML IV STA ×3 (13:11→14:38)
[2022-11-07] MEDS ORDERED: ONDANSETRON 4 MG/2 ML VIAL IVP STA (13:14)
[2022-11-07] MEDS ORDERED: HYDROmorphone 0.5 MG/0.5 ML SYRINGE IVP STA ×2 (13:14→14:12)
[2022-11-07 13:31] LABS: Basophils # (A) 0.1 k/uL (0-0.2); Basophils % (A) 0 %; Eosinophils # (A) 0.1 k/uL (0-0.7); Eosinophils % (A) 1 %; HCT 43.3 % (39.0-53.0); HGB 14.7 gm/dL (13.0-17.5); Lymphocytes # (A) 2.5 k/uL (1.0-4.8); Lymphocytes % (A) 17 %; MCH 29.3 pg (25.0-35.0); MCHC 33.8 g/dL (31.0-37.0); MCV 86.5 fL (80.0-100.0); Mean Platelet Volume 8.7; Monocytes # (A) 0.7 k/uL (0-1.0); Monocytes % (A) 4 %; Neutrophils # (A) 11.3 k/uL (1.3-7.7); Neutrophils % (A) 77 %; Platelet Count 263 k/uL (150-450); RBC 5.01 m/uL (4.30-5.90); WBC 14.7 k/uL (3.8-10.6)
[2022-11-07 13:48] LABS: Appearance,Urine Clear (Clear); Bilirubin,Urine Negative (Negative); Blood,Urine Negative (Negative); Color,Urine Yellow; Glucose,Urine (UA) Negative (Negative); Hyaline Casts,Urine 1 /lpf (0-2); Ketones,Urine 2+ (Negative); Leukocyte Esterase,Urine Trace (Negative); Mucus,Urine Rare /hpf; Nitrite,Urine Negative (Negative); Protein,Urine Trace (Negative); Specific Gravity,Urine 1.022 (1.001-1.035); Urobilinogen,Urine <2.0 mg/dL (<2.0); WBC,Urine 3 /hpf (0-5)
[2022-11-07 13:50] LABS: AST 25 U/L (17-59); African American GFR (CKD) >90 (>60 ml/min/1.73 sqM); Albumin 4.9 g/dL (3.5-5.0); Alcohol <10 mg/dL; Alkaline Phosphatase 66 U/L (38-126); Anion Gap 17 mmol/L; Blood Urea Nitrogen 14 mg/dL (9-20); Calcium 9.3 mg/dL (8.4-10.2); Carbon Dioxide 19 mmol/L (22-30); Chloride 107 mmol/L (98-107); Glucose 146 mg/dL (74-99); Lipase 55 U/L (23-300); Non-African American GFR(CKD) >90 (>60 ml/min/1.73 sqM); Sodium 143 mmol/L (137-145); Total Bilirubin 0.8 mg/dL (0.2-1.3); Total Protein 7.7 g/dL (6.3-8.2)
[2022-11-07 13:56] LABS: ALT 33 U/L (4-49)
[2022-11-07 14:00] VITALS: TEMP 97.3
[2022-11-07] MEDS ORDERED: PROCHLORPERAZINE INJ 10 MG/2 ML VIAL IVP STA (14:12)
[2022-11-07] MEDS ORDERED: MAG HYDROX/AL HYDROX/SIMETH 30 ML, HYOSCYAMINE ELIXIR 10 ML, LIDOCAINE VISCOUS 2% 10 ML PO STA ×3 (14:45)
[2022-11-07] MEDS ORDERED: HALOPERIDOL LACTATE 5 MG/ML 1 ML VIAL IVP STA (14:46)
--- NOTE | 2022-11-07 15:03 | CT ---
EXAMINATION TYPE: CT abdomen pelvis w con CT DLP: 766.2 mGycm, Automated exposure control for dose reduction was used. DATE OF EXAM: 11/07/2022 2:48 PM COMPARISON: CT abdomen pelvis most recent from 05/22/2020. CLINICAL INDICATION:Male, 37 years old with history of llq pain, hx of Crohn's; Severe abdominal pain . TECHNIQUE: Standard CT of the abdomen and pelvis following the administration of 100 cc of Isovue 3 00 IV contrast material. Coronal and sagittal reformats were performed. FINDINGS: LOWER CHEST: Unremarkable ABDOMEN LIVER: Diffusely hypoattenuating parenchyma. GALLBLADDER AND BILE DUCTS: Unremarkable. PANCREAS: Unremarkable. SPLEEN: Unremarkable. ADRENAL GLANDS: Unremarkable. KIDNEYS AND URETERS: No evidence of hydronephrosis or renal calculus. The kidneys enhance symmetrical ly. PELVIS BLADDER: Unremarkable REPRODUCTIVE: Unremarkable. ABDOMEN & PELVIS STOMACH AND BOWEL: Stomach and duodenum are unremarkable. Submucosal fat deposition throughout the co grant and proximal ileum. No small bowel hyperenhancement or surrounding inflammatory changes. No fistu la identified No evidence of bowel obstruction. The appendix is within normal limits. PERITONEUM: No evidence of pneumoperitoneum or free fluid. VASCULATURE: No evidence of aortic aneurysm. Multiple pelvic phleboliths. MUSCULOSKELETAL: No acute osseous abnormalities LYMPH NODES: No gross evidence for lymphadenopathy. SOFT TISSUE/ABDOMINAL WALL: A tiny fat filled umbilical hernia. IMPRESSION: 1. No acute abdominal/pelvic process. 2. Submucosal fat deposition within the colon and proximal ileum which may represent sequelae of repo rted Crohn's disease. No hyperenhancement, wall thickening or stranding fat stranding to suggest acut e inflammatory changes. 3. Hepatic steatosis.
[2022-11-07 15:23] VITALS: BP 137/83; PULSE 66; RESP 18
[2022-11-07] MEDS ORDERED: FAMOTIDINE 20 MG/2 ML VIAL IV STA (15:23)
[2022-11-07] MEDS ORDERED: PANTOPRAZOLE 40 MG/10 ML VIAL IVP STA (15:23)
[2022-11-07] MEDS ORDERED: PROCHLORPERAZINE INJ 10 MG/2 ML VIAL IVP PRN (15:26)
--- NOTE | 2022-11-20 16:18 | ED ---
Abdominal Pain HPI - General Chief Complaint: Nausea/Vomiting/Diarrhea Stated Complaint: abd pain Time Seen by Provider: 11/07/22 13:11 Source: patient, EMS Mode of arrival: EMS Limitations: no limitations - History of Present Illness Initial Comments: Patient is a 37-year-old male who presents to the emergency department for nausea and vomiting. Symptoms started this morning. Patient states he vomited about 15 times, nonbloody. Also reports generalized abdominal pain. No fever, chills, chest pain, shortness of breath, diarrhea, constipation. Patient reports daily marijuana use. States he has had similar symptoms before which he was told was likely due to marijuana use. Denies alcohol use. - Related Data Home Medications Medication Instructions Recorded Confirmed Brivaracetam [Briviact] 100 mg PO BID 10/23/20 11/07/22 Omeprazole [PriLOSEC] 20 mg PO DAILY 11/07/22 11/07/22 hydrOXYzine HCL [Atarax] 50 mg PO TID 11/07/22 11/07/22 traZODone HCL [Desyrel] 100 mg PO HS 11/07/22 11/07/22 Allergies Allergy/AdvReac Type Severity Reaction Status Date / Time latex Allergy Unknown Verified 07/15/22 16:38 Review of Systems ROS Statement: Those systems with pertinent positive or pertinent negative responses have been documented in the HPI. ROS Other: All systems not noted in ROS Statement are negative. 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 History of Any Multi-Drug Resistant Organisms: None Reported Past Surgical History: Orthopedic Surgery Additional Past Surgical History / Comment(s): Right ankle Past Anesthesia/Blood Transfusion Reactions: No Reported Reaction Past Psychological History: Anxiety Smoking Status: Former smoker Past Alcohol Use History: None Reported Past Drug Use History: Marijuana - Past Family History Father History Unknown: Yes General Exam Limitations: no limitations General appearance: alert, in no apparent distress Head exam: Present: atraumatic, normocephalic, normal inspection Eye exam: Present: normal appearance, PERRL, EOMI. Absent: scleral icterus, conjunctival injection, periorbital swelling Respiratory exam: Present: normal lung sounds bilaterally. Absent: respiratory distress, wheezes, rales, rhonchi, stridor Cardiovascular Exam: Present: regular rate, normal rhythm, normal heart sounds. Absent: systolic murmur, diastolic murmur, rubs, gallop, clicks GI/Abdominal exam: Present: soft, normal bowel sounds. Absent: distended, tenderness, guarding, rebound, rigid Neurological exam: Present: alert, oriented X3, CN II-XII intact Psychiatric exam: Present: normal affect, normal mood Skin exam: Present: warm, dry, intact, normal color. Absent: rash Course Vital Signs 11/07/22 11/07/22 11/07/22 13:11 13:59 15:22 Temperature 97.2 F L 97.3 F L Pulse Rate 70 66 Respiratory 26 H 18 Rate Blood Pressure 132/110 137/83 O2 Sat by Pulse 98 99 Oximetry Medical Decision Making - Medical Decision Making Was pt. sent in by a medical professional or institution (SATURNINO Sanchez, FORECLOSURE FIELD INSPECTOR, urgent care, hospital, or long-term...) When possible be specific @ -No Did you speak to anyone other than the patient for history (EMS, parent, family, police, friend...)? What history was obtained from this source @ -No Did you review nursing and triage notes (agree or disagree)? Why? @ -Yes, I disagree. Patient does not have shortness of breath Were old charts reviewed (outside hosp., previous admission, EMS record, old EKG, old radiological studies, urgent care reports/EKG's, long-term records)? Report findings @ -No old charts were reviewed Differential Diagnosis (chest pain, altered mental status, abdominal pain women, abdominal pain men, vaginal bleeding, weakness, fever, dyspnea, syncope, headache, dizziness, GI bleed, back pain, seizure, CVA, palpatations, mental health)? @ -Differential Abdominal Pain Men: Appendicitis, cholecystitis, diverticulosis, ischemic bowel, pancreatitis, hepatitis, UTI, gastroenteritis, AAA, incarcerated hernia, bowel obstruction, constipation, inflammatory bowel, hepatitis, peptic ulcer disease, splenic infarction, perforated viscus, testicular torsion, this is not meant to be an all-inclusive list EKG interpreted by me (3pts min.). @ -As above X-rays interpreted by me (1pt min.). @ -None done CT interpreted by me (1pt min.). @ -Yes, CT of the abdomen and pelvis with contrast shows no acute abdominal or pelvic process U/S interpreted by me (1pt. min.). @ -None done What testing was considered but not performed or refused? (CT, X-rays, U/S, labs)? Why? @ -None What meds were considered but not given or refused? Why? @ -None Did you discuss the management of the patient with other professionals (professionals i.e. DrBárbara, PA, FORECLOSURE FIELD INSPECTOR, lab, RT, psych nurse, elementary school social worker, salt washer, teacher, school services officer, watch case polisher)? Give summary @ -Yes discussed case with Dr. Marie who accepts admission Was smoking cessation discussed for >3mins.? @ -No Was critical care preformed (if so, how long)? @ -No Were there social determinants of health that impacted care today? How? (Homelessness, low income, unemployed, alcoholism, drug addiction, transportation, low edu. Level, literacy, decrease access to med. care, snf, rehab)? @ -No Was there de-escalation of care discussed even if they declined (Discuss DNR or withdrawal of care, Hospice)? DNR status @ -No What co-morbidities impacted this encounter? (DM, HTN, Smoking, COPD, CAD, Cancer, CVA, ARF, Chemo, Hep., AIDS, mental health diagnosis, sleep apnea, morbid obesity)? @Marijuana use Was patient admitted / discharged? Hospital course, mention meds given and route, prescriptions, significant lab abnormalities, going to OR and other pertinent info. @ -Admitted. Lactic very high 7.2, likely due to vomiting. Patient was admitted for IV hydration however shortly after left AGAINST MEDICAL ADVICE. Undiagnosed new problem with uncertain prognosis? @ -No Drug Therapy requiring intensive monitoring for toxicity (Heparin, Nitro, Insulin, Cardizem)? @ -No Were any procedures done? @ -No Diagnosis/symptom? @ Cyclic vomiting syndrome Acute, or Chronic, or Acute on Chronic? @ -Acute Uncomplicated (without systemic symptoms) or Complicated (systemic symptoms)? @ -Uncomplicated Side effects of treatment? @ -No Exacerbation, Progression, or Severe Exacerbation? @ -No Poses a threat to life or bodily function? How? (Chest pain, USA, LA, pneumonia, PE, COPD, DKA, ARF, appy, cholecystitis, CVA, Diverticulitis, Homicidal, Suicidal, threat to staff... and all critical care pts) @ -No Dr. العلي is my attending - Lab Data Result diagrams: 11/07/22 13:25 11/07/22 13:25 Lab Results 11/07/22 11/07/22 11/07/22 Range/Units 13:25 13:25 13:25 WBC 14.7 H (3.8-10.6) k/uL RBC 5.01 (4.30-5.90) m/uL Hgb 14.7 (13.0-17.5) gm/dL Hct 43.3 (39.0-53.0) % MCV 86.5 (80.0-100.0) fL MCH 29.3 (25.0-35.0) pg MCHC 33.8 (31.0-37.0) g/dL RDW 13.0 (11.5-15.5) % Plt Count 263 (150-450) k/uL MPV 8.7 Neutrophils % 77 % Lymphocytes % 17 % Monocytes % 4 % Eosinophils % 1 % Basophils % 0 % Neutrophils # 11.3 H (1.3-7.7) k/uL Lymphocytes # 2.5 (1.0-4.8) k/uL Monocytes # 0.7 (0-1.0) k/uL Eosinophils # 0.1 (0-0.7) k/uL Basophils # 0.1 (0-0.2) k/uL Sodium 143 (137-145) mmol/L Potassium 4.0 (3.5-5.1) mmol/L Chloride 107 (98-107) mmol/L Carbon Dioxide 19 L (22-30) mmol/L Anion Gap 17 mmol/L BUN 14 (9-20) mg/dL Creatinine 0.80 (0.66-1.25) mg/dL Est GFR (CKD-EPI)AfAm >90 (>60 ml/min/1.73 sqM) Est GFR (CKD-EPI)NonAf >90 (>60 ml/min/1.73 sqM) Glucose 146 H (74-99) mg/dL Lactic Ac Sepsis Rflx Plasma Lactic Acid Larry (0.7-2.0) mmol/L Calcium 9.3 (8.4-10.2) mg/dL Total Bilirubin 0.8 (0.2-1.3) mg/dL AST 25 (17-59) U/L ALT 33 (4-49) U/L Alkaline Phosphatase 66 (38-126) U/L Total Protein 7.7 (6.3-8.2) g/dL Albumin 4.9 (3.5-5.0) g/dL Lipase 55 (23-300) U/L Urine Color Yellow Urine Appearance Clear (Clear) Urine pH 8.0 (5.0-8.0) Ur Specific [place] 1.022 (1.001-1.035) Urine Protein Trace H (Negative) Urine Glucose (UA) Negative (Negative) Urine Ketones 2+ H (Negative) Urine Blood Negative (Negative) Urine Nitrite Negative (Negative) Urine Bilirubin Negative (Negative) Urine Urobilinogen <2.0 (<2.0) mg/dL Ur Leukocyte Esterase Trace H (Negative) Urine WBC 3 (0-5) /hpf Hyaline Casts 1 (0-2) /lpf Urine Mucus Rare H (None) /hpf Serum Alcohol <10 mg/dL 11/07/22 11/07/22 Range/Units 13:25 14:10 WBC (3.8-10.6) k/uL RBC (4.30-5.90) m/uL Hgb (13.0-17.5) gm/dL Hct (39.0-53.0) % MCV (80.0-100.0) fL MCH (25.0-35.0) pg MCHC (31.0-37.0) g/dL RDW (11.5-15.5) % Plt Count (150-450) k/uL MPV Neutrophils % % Lymphocytes % % Monocytes % % Eosinophils % % Basophils % % Neutrophils # (1.3-7.7) k/uL Lymphocytes # (1.0-4.8) k/uL Monocytes # (0-1.0) k/uL Eosinophils # (0-0.7) k/uL Basophils # (0-0.2) k/uL Sodium (137-145) mmol/L Potassium (3.5-5.1) mmol/L Chloride (98-107) mmol/L Carbon Dioxide (22-30) mmol/L Anion Gap mmol/L BUN (9-20) mg/dL Creatinine (0.66-1.25) mg/dL Est GFR (CKD-EPI)AfAm (>60 ml/min/1.73 sqM) Est GFR (CKD-EPI)NonAf (>60 ml/min/1.73 sqM) Glucose (74-99) mg/dL Lactic Ac Sepsis Rflx Y Plasma Lactic Acid Larry 7.2 H* (0.7-2.0) mmol/L Calcium (8.4-10.2) mg/dL Total Bilirubin (0.2-1.3) mg/dL AST (17-59) U/L ALT (4-49) U/L Alkaline Phosphatase (38-126) U/L Total Protein (6.3-8.2) g/dL Albumin (3.5-5.0) g/dL Lipase (23-300) U/L Urine Color Urine Appearance (Clear) Urine pH (5.0-8.0) Ur Specific [place] (1.001-1.035) Urine Protein (Negative) Urine Glucose (UA) (Negative) Urine Ketones (Negative) Urine Blood (Negative) Urine Nitrite (Negative) Urine Bilirubin (Negative) Urine Urobilinogen (<2.0) mg/dL Ur Leukocyte Esterase (Negative) Urine WBC (0-5) /hpf Hyaline Casts (0-2) /lpf Urine Mucus (None) /hpf Serum Alcohol mg/dL Disposition Clinical Impression: Cyclic vomiting syndrome Disposition: Left Against Medical Advice
== END 2022-11-07 18:12 | disposition left against medical advice (07) ==
LOC: EC 13:08 → 6NMEDSUR 15:29
PROVIDERS: ADMIT Internal Medicine; ATTEND Internal Medicine
DX: R11.15 Cyclical vomiting syndrome unrelated to migraine (principal); Z53.29 Procedure and treatment not carried out because of patient's decision for other reasons; I10 Essential (primary) hypertension; F41.9 Anxiety disorder, unspecified; Z87.891 Personal history of nicotine dependence; Z79.899 Other long term (current) drug therapy; Z91.040 Latex allergy status
CPT/HCPCS: 96376; 96361; 96374; 96375; 99285; 36415; 80053; 83605; 83690; 85025; 81001; 87040; 74177; G0378; G0480; J0780; J1630; J2405; C9113; J1170; Q9967; 80320

== ENCOUNTER 2024-11-10 21:22 | Emergency (ER) | payer OTHER ==
[2024-11-10 21:30] VITALS: TEMP 98.7
[2024-11-10] MEDS: HYDROmorphone 0.5 MG/0.5 ML SYRINGE IM STA (22:17)
[2024-11-10] MEDS: KETOROLAC 15 MG/ML 1 ML VIAL IM STA (22:18)
--- NOTE | 2024-11-10 22:19 | XR ---
EXAMINATION TYPE: XR wrist complete LT DATE OF EXAM: 11/10/2024 9:58 PM CLINICAL INDICATION:Male, 39 years old with history of fall; H COMPARISON: None TECHNIQUE: XR wrist complete LT; examined in the Frontal , lateral, and oblique. FINDINGS: There is a comminuted distal left radial intra-articular fracture with dorsal angulation of the domin ant fracture component. There is a questionable lucency involving the ulnar styloid process best appr eciated on the frontal view. Significant soft tissue swelling of the wrist is present. No other acute fracture is present. No discrete dislocation of the carpal bones. IMPRESSION: 1. Comminuted distal left radial intra-articular displaced fracture. 2. Questionable fracture involving the ulnar styloid best seen on the frontal view. Consider repeat x -ray if clinically indicated. 3. Moderate soft tissue swelling of the wrist and forearm. [facility], , 11/10/2024 10:17 PM
--- NOTE | 2024-11-10 22:34 | ED ---
General Adult HPI - General Chief complaint: Extremity Injury, Upper Stated complaint: IHS-L Arm Injury Time Seen by Provider: 11/10/24 21:31 Source: patient, RN notes reviewed Mode of arrival: ambulatory Limitations: no limitations - History of Present Illness Initial comments: 39-year-old male presents to the emergency department for evaluation of left wrist injury. Patient reports that he slipped on ice while at work causing him to fall onto his left side. He states that he fell onto his left outstretched hand. He states that this occurred around 9:00. He denies any other injury. Denies head injury. Denies blood thinners. Denies any numbness, tingling of the extremity. - Related Data Home Medications Medication Instructions Recorded Confirmed Brivaracetam [Briviact] 100 mg PO BID 10/23/20 11/07/22 Omeprazole [PriLOSEC] 20 mg PO DAILY 11/07/22 11/07/22 hydrOXYzine HCL [Atarax] 50 mg PO TID 11/07/22 11/07/22 traZODone HCL [Desyrel] 100 mg PO HS 11/07/22 11/07/22 Allergies Allergy/AdvReac Type Severity Reaction Status Date / Time latex Allergy Unknown Verified 11/10/24 21:30 Review of Systems ROS Statement: Those systems with pertinent positive or pertinent negative responses have been documented in the HPI. ROS Other: All systems not noted in ROS Statement are negative. 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 History of Any Multi-Drug Resistant Organisms: None Reported Past Surgical History: Orthopedic Surgery Additional Past Surgical History / Comment(s): Right ankle Past Anesthesia/Blood Transfusion Reactions: No Reported Reaction Past Psychological History: Anxiety Smoking Status: Former smoker Past Alcohol Use History: None Reported Past Drug Use History: Marijuana - Past Family History Father History Unknown: Yes General Exam Limitations: no limitations General appearance: alert, in no apparent distress Head exam: Present: atraumatic, normocephalic, normal inspection Eye exam: Present: normal appearance, PERRL, EOMI. Absent: scleral icterus, conjunctival injection, periorbital swelling ENT exam: Present: normal exam, mucous membranes moist Respiratory exam: Present: normal lung sounds bilaterally. Absent: respiratory distress, wheezes, rales, rhonchi, stridor Cardiovascular Exam: Present: regular rate, normal rhythm, normal heart sounds. Absent: systolic murmur, diastolic murmur, rubs, gallop, clicks Extremities exam: Present: tenderness, normal capillary refill, other (radial pulses 2+, dinner fork deformity to the left wrist). Absent: full ROM Neurological exam: Present: alert, oriented X3 Psychiatric exam: Present: normal affect, normal mood Skin exam: Present: warm, dry, intact, normal color. Absent: rash Course Vital Signs 11/10/24 11/10/24 21:26 23:55 Temperature 98.7 F Pulse Rate 81 76 Respiratory 18 16 Rate Blood Pressure 144/78 124/75 O2 Sat by Pulse 98 97 Oximetry Procedures - Orthopedic Splinting/Casting Injury #1 Side: left Upper Extremity Immobilizer: sugar tong splint Medical Decision Making - Medical Decision Making Was pt. sent in by a medical professional or institution (, PA, CHEMICAL DEPENDENCY ATTENDANT, urgent care, hospital, or detention...) When possible be specific @ -No Did you speak to anyone other than the patient for history (EMS, parent, family, police, friend...)? What history was obtained from this source @ -No Did you review nursing and triage notes (agree or disagree)? Why? @ -I reviewed and agree with nursing and triage notes Were old charts reviewed (outside hosp., previous admission, EMS record, old EKG, old radiological studies, urgent care reports/EKG's, detention records)? Report findings @ -No old charts were reviewed Differential Diagnosis (chest pain, altered mental status, abdominal pain women, abdominal pain men, vaginal bleeding, weakness, fever, dyspnea, syncope, headache, dizziness, GI bleed, back pain, seizure, CVA, palpatations, mental health, musculoskeletal)? @ -Differential Musculoskeletal Muscular strain, contusion, ligament sprain, fracture, arthritis, septic arthritis, bursitis, cellulitis, muscle spasm, nerve compression, DVT, arterial occlusion, herpes zoster, electrolyte abnormality, tumor.... This is not meant to be in all inclusive list EKG interpreted by me (3pts min.). @ -None X-rays interpreted by me (1pt min.). @ -X-ray of the left wrist shows distal radius fracture CT interpreted by me (1pt min.). @ -None done U/S interpreted by me (1pt. min.). @ -None done What testing was considered but not performed or refused? (CT, X-rays, U/S, labs)? Why? @ -None What meds were considered but not given or refused? Why? @ -None Did you discuss the management of the patient with other professionals (professionals i.e. DrBárbara, PA, CHEMICAL DEPENDENCY ATTENDANT, lab, RT, psych nurse, high school social studies tutor, supervisor pole yard, teacher, chief environmental commitment officer, test case developer)? Give summary @ -No Was smoking cessation discussed for >3mins.? @ -No Was critical care preformed (if so, how long)? @ -No Were there social determinants of health that impacted care today? How? (Homelessness, low income, unemployed, alcoholism, drug addiction, tr ansportation, low edu. Level, literacy, decrease access to med. care, penitentiary, rehab)? @ -No Was there de-escalation of care discussed even if they declined (Discuss DNR or withdrawal of care, Hospice)? DNR status @ -No What co-morbidities impacted this encounter? (DM, HTN, Smoking, COPD, CAD, Cancer, CVA, ARF, Chemo, Hep., AIDS, mental health diagnosis, sleep apnea, morbid obesity)? @ -None Was patient admitted / discharged? Hospital course, mention meds given and route, prescriptions, significant lab abnormalities, going to OR and other pertinent info. @ -Discharge. Patient presented to the emergency department for evaluation of left wrist injury. X-rays obtained revealing a distal radius fracture and questionable ulnar styloid fracture. Hematoma block was performed by Dr. Jang who also attempted reduction. Repeat x-rays revealed no improvement in placement. Patient was placed in a sugar-tong splint. Patient provided orthopedic follow-up. Advised rest, ice, elevation, anti-inflammatory medications. He is understanding agreeable with this plan. Patient stable at time of discharge. Undiagnosed new problem with uncertain prognosis? @ -No Drug Therapy requiring intensive monitoring for toxicity (Heparin, Nitro, Insulin, Cardizem)? @ -No Were any procedures done? @ -No Diagnosis/symptom? @ -Distal radius fracture Acute, or Chronic, or Acute on Chronic? @ -Acute Uncomplicated (without systemic symptoms) or Complicated (systemic symptoms)? @ -Uncomplicated Side effects of treatment? @ -No Exacerbation, Progression, or Severe Exacerbation? @ -No Poses a threat to life or bodily function? How? (Chest pain, [place], [place], pneumonia, PE, COPD, DKA, ARF, appy, cholecystitis, CVA, Diverticulitis, Homicidal, Suicidal, threat to staff... and all critical care pts) @ -No Disposition Clinical Impression: Distal radius fracture, left Disposition: HOME SELF-CARE Condition: Stable Instructions (If sedation given, give patient instructions): Wrist Fracture in Adults (ED) Additional Instructions: Paramjit received a one-time dose of opioid pain medication while in the emergency department and therefore, may be positive for opioids on urine drug screen. Please follow up with orthopedics. Utilize acetaminophen and ibuprofen for pain and inflammation. Is patient prescribed a controlled substance at d/c from ED?: No Referrals: Aleta Multani MD [Primary Care Provider] - 1-2 days Keo Lewis MD [Medical Doctor] - 1-2 days
[2024-11-11 00:27] VITALS: BP 124/75; PULSE 76; RESP 16
--- NOTE | 2024-11-11 00:34 | XR ---
EXAM: XR Left Wrist Complete, 3 or More Views CLINICAL HISTORY: Post reduction TECHNIQUE: Frontal, lateral and oblique views of the left wrist. COMPARISON: 2151 hrs. FINDINGS: Bones/joints: Comminuted fracture again noted involving the distal radial metaphysis with similar angulation in the lateral projection. Increased displacement of the avulsion fracture involving the distal ulnar styloid. No dislocation. Soft tissues: Soft tissue swelling about the distal forearm and wrist. No radiopaque foreign body. IMPRESSION: Distal radial and ulnar fractures, as detailed above.
== END 2024-11-11 01:02 | disposition home or self-care (01) ==
LOC: EC 21:22
DX: S52.125A Nondisplaced fracture of head of left radius, initial encounter for closed fracture (principal); Z87.891 Personal history of nicotine dependence; Z91.040 Latex allergy status; W00.0XXA Fall on same level due to ice and snow, initial encounter; Y99.0 Civilian activity done for income or pay
CPT/HCPCS: 99283; 96372 ×2; 73100; 73110; 25605; J1885; J1171

== ENCOUNTER → 2025-01-14 | Outpatient (CLI) | payer OTHER ==
[2025-01-14 15:26] LABS: ALT 13 U/L (10-49); AST 19 U/L (14-35); Albumin 4.4 g/dL (3.8-4.9); Alkaline Phosphatase 58 U/L (41-126); BUN/Creat Ratio 9.44 Ratio (12.00-20.00); Blood Urea Nitrogen 8.5 mg/dL (9.0-27.0); Calcium 9.5 mg/dL (8.7-10.3); Carbon Dioxide 26.5 mmol/L (21.6-31.8); Chloride 105 mmol/L (96-109); Globulin 2.1 g/dL (1.6-3.3); Glucose 100 mg/dL (70-110); Potassium 4.3 mmol/L (3.5-5.5); Sodium 140 mmol/L (135-145); Total Bilirubin 0.5 mg/dL (0.3-1.2); Total Protein 6.5 g/dL (6.2-8.2)
[2025-01-14 16:00] LABS: Basophils # (A) 0.04 X 10*3/uL (0.00-0.10); Basophils % (A) 0.7 %; Eosinophils % (A) 3.3 %; HCT 41.3 % (39.6-50.0); Lymphocytes # (A) 1.94 X 10*3/uL (0.90-5.00); Lymphocytes % (A) 31.8 %; MCH 31.8 pg (27.0-32.0); MCHC 33.9 g/dL (32.0-37.0); MCV 93.9 FL (80.0-97.0); Monocytes # (A) 0.41 X 10*3/uL (0.20-1.00); Monocytes % (A) 6.7 %; NRBC Per 100 WBC 0 X 10*3/uL (0.00-0.01); Neutrophils # (A) 3.49 X 10*3/uL (1.80-7.70); Neutrophils % (A) 57.2 %; Platelet Count 230 X 10*3/uL (140-440); RDW 12.9 % (11.5-14.5)
== END | disposition home or self-care (01) ==
LOC: LABWHC1 09:52
PROVIDERS: ATTEND Internal Medicine Gastroenterology
DX: K74.00 Hepatic fibrosis, unspecified (principal); F10.10 Alcohol abuse, uncomplicated
CPT/HCPCS: 36415; 80053; 81596; 85025